=== PATIENT | male | born 1955 | race Hispanic/Latino ===

== ENCOUNTER 2020-12-05 16:55 | Inpatient (IN) | payer BC, SELFPAY ==
[~2020-12-05 16:55] MED LIST: Succinylcholine 200 MG/10 ml SYRINGE FS ONE
[2020-12-05] MEDS ORDERED: cefTRIAXone\\ROCEPHIN 1 GM VIAL ONE (17:21)
--- NOTE | 2020-12-05 17:28 | RAD ---
Exam: Chest one view HISTORY:Dyspnea Comparison: None FINDINGS: Cardiac silhouette: Normal Aorta: Unremarkable Pulmonary vessels: Normal Costophrenic angles: Clear LUNGS: The lobar interstitial and alveolar opacities. Pneumothorax: None Osseous abnormalities: None Additional findings: Calcified gallbladder is suspected in the right lower quadrant. IMPRESSION: 1. Multi lobar interstitial and alveolar opacities. Correlate for congestive heart failure versus COV ID pneumonia. 2. 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
[2020-12-05 17:34] LABS: Hemoglobin 15.9 g/dL (14.0-18.0); Mean Corpuscular HGB CONC 33.3 g/dL (32.0-36.0); Mean Corpuscular Hemoglobin 29.8 pg (27.0-31.0); Mean Corpuscular Volume 89.4 fL (78.0-98.0); Mean Platelet Volume 10.1 fL (7.4-10.4); Platelet Count 174 thou/uL (130-400); RBC Distribution Width 12.4 % (11.5-14.5); Red Blood Cell (RBC) Count 5.34 mill/uL (4.70-6.10); White Blood Cell (WBC) Count 28.9 thou/uL (4.8-10.8)
[2020-12-05 17:40] LABS: PTT 26.3 sec (22.9-36.1)
[2020-12-05 17:40] LABS: Bacteria/HPF 2+ HPF (None Seen); Bilirubin 1+ (Negative); Blood, Urine 2+ (Negative); Clarity Extra Turbid (Clear); Glucose, Urine (Dipstick) 30 mg/dL (Negative); Ketone, Urine Negative (Negative); Leukocyte Negative Leu/uL (Negative); Nitrite Negative (Negative); Protein, Urine (Dipstick) 200 mg/dL (Neg-Trace); RBC/HPF 0-3 HPF (0-3); Specific Gravity, Urine 1.024 (1.002-1.036); Squamous Epithelial 0-3 HPF (0-3)
[2020-12-05] MEDS ORDERED: Azithromycin 500 MG in Sodium Chloride 0.9% 250 ML 250 ML IVPB SCH (17:45)
[2020-12-05 17:52] LABS: ALT (SGPT) 66 U/L (8-55); AST (SGOT) 76 U/L (5-34); Albumin 3.2 g/dL (3.4-4.8); Alkaline Phosphatase 75 U/L (40-110); Anion Gap 30 mmol/L (10-20); BUN (Urea Nitrogen) 86 mg/dL (8.4-25.7); Calc. Creatinine Clearance 0 mL/min (70-130); Calcium 7.7 mg/dL (7.8-10.44); Carbon Dioxide 23 mmol/L (23-31); Chloride 107 mmol/L (98-107); Globulin 4.8 g/dL (2.4-3.5); Glucose 151 mg/dL (80-115); Potassium 4.7 mmol/L (3.5-5.1); Sodium 155 mmol/L (136-145)
[2020-12-05 17:59] LABS: Band 22 % (5-11); Lymphocytes 2 % (21-51); MDiff Complete? YES; Monocytes 1 % (0-10); Neutrophil 74 % (42-75); Nucleated RBC 1 % (0); Platelet Morphology Comment Appears Adequate; Polychromasia MODERATE = 3-4 cells (100X) (0-2/hpf); Reactive Lymphocytes 1 % (0-10)
[2020-12-05 18:03] LABS: D-Dimer Test Greater than 20.00 *mcg/mL (0.27-0.43)
[2020-12-05 18:20] LABS: CKMB 5.2 ng/mL (0-6.6)
[2020-12-05] MEDS ORDERED: Aspirin 300 MG Suppository ONE (19:21)
[2020-12-05] MEDS ORDERED: Enoxaparin Sodium 40 MG/0.4 ML SYRINGE ONE ×2 (19:21→19:32)
[2020-12-05] MEDS ORDERED: Dexamethasone 10 MG/ML VIAL ONE (19:21)
[2020-12-05 20:26] LABS: Troponin I 1.888 ng/mL (< 0.028)
[2020-12-05 20:30] LABS: Lactic Acid 2.2 mmol/L (0.5-2.2)
[2020-12-05] MEDS ORDERED: Acetaminophen 325 MG TAB PO PRN (21:30)
[2020-12-05] MEDS ORDERED: Vancomycin 1 GM in Premix Bag 1 BAG IVPB SCH (21:30)
[2020-12-05] MEDS ORDERED: Ondansetron ODT 4 MG TAB SL PRN (21:30)
[2020-12-05] MEDS ORDERED: Cefepime 2 GM in Sodium Chloride 0.9% 100 ML IVPB SCH (21:30)
[2020-12-05] MEDS ORDERED: Ondansetron PF 4 MG/2 ML Vial IVP PRN (21:30)
--- NOTE | 2020-12-05 23:39 | PDOC.HHP ---
Hospitalist HPI - History of Present Illness confusion , SOB History of Present Illness: 65 yr odl Hispnic male with no known PMHX -admitted for worsneing SOB , altered mental status with confusion by fmtatyana - repertedly down with Covid infection sicne last 13 days with progresisve symptoms - on arrival at ER , pt was markedly confused , unable to give hx , noted with with hypixia requiring start of BIpap after failed suppmental NC 02 -He was also hypotensive with sytolci BP int he 90s -CXR shows bibasilar infiltrate worrisome for covid pna svs CHf -Noted with elevated cr at 4.6 and tropnin at 1.8 -Patient is more awake now , doing better on Bipap , He denies any pain , admit to SOB , denies any past hx of renal disease Hospitalist ROS - Review of Systems ROS unobtainable: due to mental status - Medication Medications: Active Medications Generic Name Dose Route Start Last Admin Trade Name Freq PRN Reason Stop Dose Admin Vancomycin HCl 1 gm/ Device 200 mls @ 200 mls/hr 12/05/20 21:30 12/05/20 21:39 IVPB 12/05/20 23:59 200 mls NOW BEATRICE Administration Cefepime HCl 2 gm/ Sodium 100 mls @ 200 mls/hr 12/05/20 21:30 12/05/20 21:38 Chloride IVPB 12/05/20 23:59 100 mls NOW BEATRICE Administration Hospitalist History - Past Medical History Source: patient Cardiac: reports: no pertinent history - Exam General Appearance: ill appearing General - other findings: on Bipap , Moves head to communicate Eye: PERRL, anicteric sclera ENT: normocephalic atraumatic, dry oral mucosa Neck: supple, symmetric Heart: RRR, no murmur Respiratory: rales, wheezes Gastrointestinal: soft, non-tender, no palpable masses, no guarding Extremities: no cyanosis, 1+ LE edema Skin: normal turgor, no lesions Neurological: normal sensation to touch, no focal deficits Musculoskeletal: normal tone, normal strength Psychiatric: normal affect, oriented to person, oriented to place Hospitalist Results - Labs Result Diagrams: 12/05/20 17:17 12/05/20 17:17 Lab results: WBC 28.9 thou/uL (4.8-10.8) H 12/05/20 17:17 Hgb 15.9 g/dL (14.0-18.0) 12/05/20 17:17 Hct 47.7 % (42.0-52.0) 12/05/20 17:17 MCV 89.4 fL (78.0-98.0) 12/05/20 17:17 Plt Count 174 thou/uL (130-400) 12/05/20 17:17 Band Neuts % (Manual) 22 % (5-11) H 12/05/20 17:17 ESR Westergren 69 mm/hr (Less than 20) H 12/05/20 17:17 Sodium 155 mmol/L (136-145) H 12/05/20 17:17 Potassium 4.7 mmol/L (3.5-5.1) 12/05/20 17:17 Chloride 107 mmol/L (98-107) 12/05/20 17:17 Carbon Dioxide 23 mmol/L (23-31) 12/05/20 17:17 BUN 86 mg/dL (8.4-25.7) H 12/05/20 17:17 Creatinine 4.64 mg/dL (0.7-1.3) H 12/05/20 17:17 Glucose 151 mg/dL (80-115) H 12/05/20 17:17 Lactic Acid 2.2 mmol/L (0.5-2.2) 12/05/20 19:59 Calcium 7.7 mg/dL (7.8-10.44) L 12/05/20 17:17 Total Bilirubin 1.0 mg/dL (0.2-1.2) 12/05/20 17:17 AST 76 U/L (5-34) H 12/05/20 17:17 ALT 66 U/L (8-55) H 12/05/20 17:17 Alkaline Phosphatase 75 U/L (40-110) 12/05/20 17:17 CK-MB (CK-2) 5.2 ng/mL (0-6.6) 12/05/20 17:17 Troponin I 1.888 ng/mL (< 0.028) H* 12/05/20 19:41 Serum Total Protein 8.0 g/dL (5.8-8.1) 12/05/20 17:17 Albumin 3.2 g/dL (3.4-4.8) L 12/05/20 17:17 Urine Ketones Negative mg/dL (Negative) 12/05/20 17:30 Urine Blood 2+ (Negative) A 12/05/20 17:30 Urine Nitrite Negative (Negative) 12/05/20 17:30 Ur Leukocyte Esterase Negative Horacio/uL (Negative) 12/05/20 17:30 Urine RBC 0-3 HPF (0-3) 12/05/20 17:30 Urine WBC 7-10 HPF (0-3) A 12/05/20 17:30 Ur Squamous Epith Cells 0-3 HPF (0-3) 12/05/20 17:30 Urine Bacteria 2+ HPF (None Seen) A 12/05/20 17:30 - Radiology Interpretation Chest x-ray Status: image reviewed by me Additional Comment: b/l alveolar infiltrate -porcelain gall bladder noted Hospitalist H&P A/P - Problem (1) Pneumonia due to COVID-19 virus Code(s): U07.1 - COVID-19; J12.82 - Status: Acute (2) Sepsis Code(s): A41.9 - SEPSIS, UNSPECIFIED ORGANISM Status: Acute (3) Hypotension Status: Acute (4) Acute respiratory failure with hypoxia Code(s): J96.01 - ACUTE RESPIRATORY FAILURE WITH HYPOXIA Status: Acute (5) Demand myocardial infarction Code(s): I21.9 - ACUTE MYOCARDIAL INFARCTION, UNSPECIFIED Status: Acute - Plan Plan: # Covid Pna - start steroids and zinc - pulmonary eval - lovenox qc q12 - wean bipap as tolerated - since fluid overload clincially , may be due to nephrosarca , start low dose lasix to keep in slight volume deplted state # Acute resp failure with hypoxia - as above , wean bipap # SAVANNAH - marked elevated cr to 4.6 - may be due to covid ATN - obtain renal eval - renally dose all meds - follow urine output trend - do lasix to convert to non oliguric ATN # FL - may be demand mediated , follow with lovebnox -follow cardiology # DVT prop - as above # Hypotension - improving - r/o sepsis from covid - follow blood cx - start emprical levaquin - will obtain RUQ US for r/o cholecystitis # Advance directive - unable to obtain due to mild confusion but improving , follow later
[2020-12-06] MEDS ORDERED: Furosemide 40 MG/4 ML VIAL ONE (00:20)
[2020-12-06] MEDS: Furosemide 40 MG/4 ML VIAL SLOW IVP SCH ×2 (00:22→10:46)
[2020-12-06] MEDS: Dextrose 5% in Water 1,000 ML IV SCH ×2 (00:22→07:30)
--- NOTE | 2020-12-06 07:37 | ULT ---
Sonogram right upper quadrant HISTORY: Right upper quadrant pain. FINDINGS: At the gallbladder fossa, there is dense echogenicity and shadowing behind the non-thickene d gallbladder wall. No pericholecystic fluid evident. Common duct upper limits of normal at 0.7 cm. Liver has a normal appearance without focal mass or intrahepatic biliary dilatation. No free fluid. 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 No evidence of acute bili argelia obstruction.
[2020-12-06 08:32] LABS: ALT (SGPT) 58 U/L (8-55); AST (SGOT) 76 U/L (5-34); Albumin 2.7 g/dL (3.4-4.8); Alkaline Phosphatase 62 U/L (40-110); Anion Gap 22 mmol/L (10-20); BUN (Urea Nitrogen) 105 mg/dL (8.4-25.7); Bilirubin, Total 0.8 mg/dL (0.2-1.2); Calc. Creatinine Clearance 19 mL/min (70-130); Calcium 6.8 mg/dL (7.8-10.44); Carbon Dioxide 20 mmol/L (23-31); Chloride 113 mmol/L (98-107); Glucose 212 mg/dL (80-115); Magnesium 3.7 mg/dL (1.6-2.6); Potassium 4.5 mmol/L (3.5-5.1); Protein, Total 6.7 g/dL (5.8-8.1); Sodium 150 mmol/L (136-145)
[2020-12-06] MEDS ORDERED: FLU VACC QS2020-21(6MOS UP)/PF 60 MCG/0.5 ML SYRINGE IM ONE (09:00)
[2020-12-06] MEDS ORDERED: Sodium Chloride 0.9% 1,000 ML IV SCH (09:15)
[2020-12-06 09:25] LABS: Band 11 % (5-11); Hemoglobin 13.5 g/dL (14.0-18.0); Lymphocytes 2 % (21-51); MDiff Complete? YES; Mean Corpuscular Hemoglobin 28.1 pg (27.0-31.0); Mean Corpuscular Volume 90.6 fL (78.0-98.0); Mean Platelet Volume 10.4 fL (7.4-10.4); Metamyelocyte 2 % (0-0); Monocytes 1 % (0-10); Myelocyte 1 % (0-0); Neutrophil 83 % (42-75); Nucleated RBC 1 % (0); Platelet Count 161 thou/uL (130-400); Platelet Morphology Comment Appears Adequate; Polychromasia SLIGHT = 2-3 cells (100X) (0-2/hpf); RBC Distribution Width 12.6 % (11.5-14.5); Red Blood Cell (RBC) Count 4.79 mill/uL (4.70-6.10); White Blood Cell (WBC) Count 30.7 thou/uL (4.8-10.8)
[2020-12-06] MEDS: Dexamethasone 10 MG/ML VIAL SLOW IVP SCH ×2 (09:32→20:57)
--- NOTE | 2020-12-06 09:57 | CON ---
DATE OF CONSULTATION: 12/06/2020 HISTORY OF PRESENT ILLNESS: Mr. Ramos is a 65-year-old male who was brought by his family due to mental status change and confusion. Initial evaluation showed he had a COVID-19 pneumonia. We are now being consulted for his worsening renal dysfunction. Chest x-ray did show bibasilar diffuse infiltrates. However, the reading of the blood vessels suggests its within normal making CHF less likely. We are now following up this patient for acute kidney injury. I did review the urinalysis and is very concentrated. No evidence of pigmented granular casts to suggest ATN at the present time. REVIEW OF SYSTEMS: Not obtainable due to the patient's confusion. PAST MEDICAL HISTORY: No significant medical problems. PAST SURGICAL HISTORY: No significant surgeries. ALLERGIES: UNKNOWN. TRAUMA: None. IMMUNIZATION: Unknown. HOSPITALIZATIONS: Please see past medical history. FAMILY HISTORY: No family history of ESRD. PHYSICAL EXAMINATION: VITAL SIGNS: Blood pressure is 123/85, heart rate 105, respiratory rate 34, and O2 saturation 100%. GENERAL: The patient is confused, on non-rebreather, in [id number] respiratory distress. SKIN: Adequate turgor. HEENT: He has pinkish conjunctivae. Anicteric sclerae. No neck mass. No carotid bruits. No JVD. CHEST: No deformities. LUNGS: Bibasilar crackles. HEART: Tachycardic. No murmur. No gallops. No rubs. ABDOMEN: Globular, soft, nontender. EXTREMITIES: No edema. NEUROLOGIC: The patient is confused, not following commands. MEDICATIONS: Of December 06, 2020, Decadron 10 mg IV q.12, Levaquin 250 mg daily, zinc sulfate 220 mg tablet once a day. Status post azithromycin. LABORATORY DATA: December 06, 2020, white count 30.7, hemoglobin 13.5. Sodium 150, potassium 4.5, chloride 113, carbon dioxide 20, BUN 105, creatinine 4.46, glucose 212, calcium 6.8, magnesium 3.7, AST 76, ALT 58, troponin I 1.2, albumin 2.7. Urinalysis shows specific gravity 1.024, protein is 200, rbc 0 to 3, wbc 7 to 10, no pigmented granular casts. Chest x-ray of December 05, 2020 shows diffuse infiltrates, pulmonary vessels are within normal. ASSESSMENT AND PLAN: 1. Acute kidney injury, consider hemodynamically-mediated renal dysfunction. Please note, the urine sediment was showing a very concentrated urine-specific gravity was 1.024. In addition, no findings of pigmented granular casts to suggest acute tubular necrosis. My suggestion is empiric volume repletion. We will hold off diuretics. Normal saline at 125 mL/hour. I do not find any indication for any emergent hemodialysis with this patient. 2. COVID-19 pneumonia. Continue supportive care on empiric antibiotics, on steroids. Overall prognosis remains guarded with this patient. Agree with current management. Job ID: [id number]
--- NOTE | 2020-12-06 10:06 | CON ---
DATE OF CONSULTATION: HISTORY OF PRESENT ILLNESS: The patient is a 65-year-old gentleman, who was admitted with possible sepsis and was noted to have an elevated troponin level. The patient was unable to give any type of coherent history. The patient apparently was recently diagnosed with COVID. The patient currently became acutely more dyspneic. He was noted to be hypotensive. The patient was admitted for further evaluation. PAST MEDICAL HISTORY: Unknown. PAST SURGICAL HISTORY: Unknown. SOCIAL HISTORY: Unknown. PHYSICAL EXAMINATION: GENERAL: This is an ill-appearing gentleman, on BiPAP. VITAL SIGNS: With a blood pressure 123/85. NECK: Showed no jugular venous distention. LUNGS: Crackles bilateral. HEART: Regular rate and rhythm. Normal S1, S2. ABDOMEN: Distended. EXTREMITIES: Showed trace edema. LABORATORY DATA: Sodium 150, potassium 4.5, chloride 113, bicarb 20, BUN 105, and creatinine 4.4. Troponin was 1.2. His white blood cell count is 28.9, hemoglobin 15.9, hematocrit 47.7, and platelets are 174. EKG revealed sinus tachycardia, otherwise unremarkable. Chest x-ray severe bilateral infiltrate suggestive of COVID pneumonia. IMPRESSION: 1. COVID pneumonia. 2. Sepsis. 3. Renal failure. 4. Elevated troponin level. PLAN: This unfortunate gentleman appears to have severe COVID pneumonia. His troponin level is elevated. This is most likely due to either myocarditis or demand ischemia. From a cardiac standpoint, we will follow this patient with you through his hospitalization. His prognosis is very guarded. Job ID: [id number] MTDD
[2020-12-06] MEDS: Zinc Sulfate 220 MG CAP PO SCH (10:10)
[2020-12-06] MEDS: guaiFENesin ER 600 MG TAB PO SCH ×2 (10:10→19:38)
[2020-12-06] MEDS: Sodium Chloride 0.45% 1,000 ML IV SCH ×2 (10:15→17:38)
--- NOTE | 2020-12-06 12:27 | CON ---
DATE OF CONSULTATION: HISTORY OF PRESENT ILLNESS: He is a 65-year-old Urdu gentleman, who came to the ER, confused. He then had an x-ray, which shows diffuse pulmonary infiltrates. He has a known coronavirus infection in the past. He has worsening renal function. I went in the room to check he is answering questions in Urdu. Denies any pain. He is on BiPAP this morning, sats are 93% to 94%. PAST SURGICAL HISTORY: Unknown. PAST MEDICAL HISTORY: Unknown. CHRONIC MEDICATION: Unknown. REVIEW OF SYSTEMS: Otherwise, unremarkable. PHYSICAL EXAMINATION: VITAL SIGNS: Temperature 96, blood pressure 123/85, sats 97%, bilevel BiPAP. LABORATORY AND DIAGNOSTIC DATA: Sodium is 150, creatinine 4.46, BUN 105, troponin 1.29. Apparently, day 14 with gong positive status. X-ray shows diffuse pulmonary infiltrates. IMPRESSION AND PLAN: Gong positive pneumonia, respiratory failure. Empiric antibiotics. DVT prophylaxis, heparin. Supportive care, PT. Prognosis remains guarded. TIME SPENT: Consultation note, 70 minutes, 50% patient care. Job ID: [id number]
[2020-12-06 13:27] LABS: Critical Call Chem Troponin I RESULT DECREASING; Troponin I 1.231 ng/mL (< 0.028)
[2020-12-06] MEDS: cefTRIAXone\\ROCEPHIN 1 GM in Sodium Chloride 0.9% 100 ML IVPB SCH (17:49)
--- NOTE | 2020-12-06 18:10 | PDOC.HOSPP ---
- Subjective Encounter Date: 12/06/20 Encounter Time: 09:00 Subjective: Patient seen for follow-up regarding COVID-19 pneumonia. Patient confused, could not complete review of systems. - Objective Vital Signs & Weight: Vital Signs (12 hours) Temp Pulse 12/06/20 15:39 98.0 F 12/06/20 12:39 103 H 12/06/20 11:49 96.4 F L 12/06/20 07:14 96.9 F L Weight Admit Weight 175 lb Weight 175 lb Most Recent Monitor Data Heart Rate from ECG 102 NIBP 120/94 NIBP BP-Mean 102 Respiration from ECG 31 SpO2 99 I&O: 12/05/20 12/06/20 12/07/20 06:59 06:59 06:59 Intake Total 1504 Balance 1504 Result Diagrams: 12/06/20 07:44 12/06/20 07:44 Additional Labs: Accuchecks 12/06/20 12/06/20 12/06/20 15:14 12:03 05:42 POC Glucose 183 H 168 H 198 H 12/06/20 00:39 POC Glucose 175 H Labs and MAR reviewed by me EKG Reviewed by me: Yes (Telemetry shows normal sinus rhythm) Hospitalist ROS - Review of Systems ROS unobtainable: due to mental status - Medication Medications: Active Medications Generic Name Dose Route Start Last Admin Trade Name Freq PRN Reason Stop Dose Admin Dexamethasone 10 mg 12/06/20 09:00 12/06/20 09:32 Dexamethasone 10 Mg/Ml Vial SLOW IVP 10 mg Q12HR BEATRICE Administration Guaifenesin 1,200 mg 12/06/20 09:00 12/06/20 10:10 Guaifenesin Er 600 Mg Tab PO Not Given Q12HR BEATRICE Levofloxacin 250 mg/ Device 50 mls @ 100 mls/hr 12/05/20 23:59 12/06/20 00:21 IVPB 50 mls 2359 BEATRICE Administration Sodium Chloride 1,000 mls @ 125 mls/hr 12/06/20 10:15 12/06/20 17:38 1/2 Normal Saline IV 1,000 mls .Q8H BEATRICE Administration Ceftriaxone Sodium 1 gm/ 100 mls @ 200 mls/hr 12/06/20 17:00 12/06/20 17:49 Sodium Chloride IVPB 12/13/20 17:01 100 mls 1700 BEATRICE Administration Zinc Sulfate 220 mg 12/06/20 09:00 12/06/20 10:10 Zinc Sulfate 220 Mg Cap PO Not Given DAILY BEATRICE - Exam General Appearance: awake alert Eye: anicteric sclera ENT: moist mucosa Neck: supple Heart: RRR Respiratory: rales, rhonchi Gastrointestinal: soft, non-tender Skin: no rashes Psychiatric: lethargic Hosp A/P - Plan -Assessment (1) Pneumonia due to COVID-19 virus Code(s): U07.1 - COVID-19; J12.82 - Status: Acute (2) Sepsis Code(s): A41.9 - SEPSIS, UNSPECIFIED ORGANISM Status: Acute (3) Hypotension Status: Acute (4) Acute respiratory failure with hypoxia Code(s): J96.01 - ACUTE RESPIRATORY FAILURE WITH HYPOXIA Status: Acute (5) Demand myocardial infarction Code(s): I21.9 - ACUTE MYOCARDIAL INFARCTION, UNSPECIFIED Status: Acute - Plan Patient is currently on BiPAP, in IMCU. ContinueCeftriaxone and levofloxacin. Continue vancomycin. Continue dexamethasone and zinc. Monitor creatinine and lites. Patient likely has non-ST elevation myocardial infarction type II secondary to Covid pneumonia. Prognosis guarded. DVT prophylaxis with Lovenox. Cardiology, nephrology and PCCM services following.
[2020-12-06] MEDS: Mometasone 200 MCG/Formoterol 5 MCG 120 PUFF INHALER INH SCH (18:32)
[2020-12-06] MEDS: Heparin 5,000 UNITS/ML VIAL SC SCH (20:57)
[2020-12-07] MEDS: Sodium Chloride 0.45% 1,000 ML IV SCH ×3 (01:39→18:08)
[2020-12-07] MEDS: Mometasone 200 MCG/Formoterol 5 MCG 120 PUFF INHALER INH SCH ×2 (05:17→19:40)
--- NOTE | 2020-12-07 09:00 | RAD ---
Chest one view HISTORY: Dyspnea. Pneumonia. Follow-up. COMPARISON: 421. FINDINGS: Cardiac silhouette is magnified by projection. Pulmonary vasculature predominantly obscured by patchy ill-defined areas of partially groundglass infiltrate throughout each lung. Mediastinum is midline. Right hemidiaphragm remains slightly elevated. No evidence of pneumothorax. IMPRESSION : Widespread pneumonitis. Stable appearance.
[2020-12-07] MEDS: Dexamethasone 10 MG/ML VIAL SLOW IVP SCH ×2 (09:36→21:25)
[2020-12-07] MEDS: Heparin 5,000 UNITS/ML VIAL SC SCH ×2 (09:36→21:25)
[2020-12-07] MEDS: Famotidine/PF 20 mg/2ml Vial SLOW IVP SCH (09:36)
[2020-12-07] MEDS: guaiFENesin ER 600 MG TAB PO SCH ×2 (09:37→21:25)
[2020-12-07] MEDS: Zinc Sulfate 220 MG CAP PO SCH (09:37)
--- NOTE | 2020-12-07 09:51 | PRG ---
DATE OF SERVICE: 12/07/2020 HISTORY OF PRESENT ILLNESS: Mr. Ramos is a 65-year-old male, non-Bengali speaking, who was initially admitted for COVID-19 pneumonia. We are following him up for his acute kidney injury. Our feeling is that he may have had hemodynamically-mediated renal dysfunction. Empiric volume repletion is being given. His initial creatinine was noted to be 4.46 and we are still awaiting for the results. He was also mildly hypernatremic and for that reason, he is on half-normal saline/LR solution. The patient is more awake today. OBJECTIVE: VITAL SIGNS: Blood pressure 96/64, ranging to as high as 131/88; temperature 96.2; heart rate 84; respiratory rate 17; and O2 saturation is 95%. GENERAL: The patient is awake, confused. Non-Bengali speaking. HEENT: Pinkish conjunctivae. Anicteric sclerae. NECK: No neck mass. No carotid bruits. No JVD. CHEST: No deformities. LUNGS: Decreased breath sounds. HEART: Normal sinus rhythm. No murmurs. No gallops. No rubs. ABDOMEN: Globular, soft, and nontender. No masses. EXTREMITIES: No edema. No deformities. MEDICATIONS: Of December 07, 2020, was reviewed. LABORATORY DATA: Laboratories of December 07, 2020, glucose 131. Basic metabolic panel pending. CBC pending. On December 06, 2020, troponin I 1.31. BUN was 105, creatinine 4.46 with potassium 4.5. ASSESSMENT AND PLAN: 1. Acute kidney injury, consider hemodynamically-mediated renal dysfunction. We will continue current IV fluids. Currently, on half-normal saline at 125 mL/hour. No indication for any emergent hemodialysis. Awaiting repeat basic metabolic panel. 2. Mild hypernatremia. Continuing half-normal saline. Adjust as needed. 3. COVID-19 pneumonia. Continue supportive care. Recheck basic metabolic panel and CBC in a.m. Job ID: [id number]
[2020-12-07 11:43] LABS: Hemoglobin 13.4 g/dL (14.0-18.0); Mean Corpuscular HGB CONC 31.7 g/dL (32.0-36.0); Mean Corpuscular Hemoglobin 28.8 pg (27.0-31.0); Mean Corpuscular Volume 90.8 fL (78.0-98.0); Mean Platelet Volume 11.1 fL (7.4-10.4); Platelet Count 125 thou/uL (130-400); RBC Distribution Width 12.3 % (11.5-14.5); Red Blood Cell (RBC) Count 4.67 mill/uL (4.70-6.10); White Blood Cell (WBC) Count 27.8 thou/uL (4.8-10.8)
[2020-12-07 11:50] LABS: Anion Gap 19 mmol/L (10-20); BUN (Urea Nitrogen) 97 mg/dL (8.4-25.7); Calc. Creatinine Clearance 36 mL/min (70-130); Calcium 7.1 mg/dL (7.8-10.44); Carbon Dioxide 21 mmol/L (23-31); Chloride 115 mmol/L (98-107); Glucose 148 mg/dL (80-115); Potassium 4.6 mmol/L (3.5-5.1); Sodium 150 mmol/L (136-145)
[2020-12-07 12:07] LABS: Band 11 % (5-11); Lymphocytes 1 % (21-51); MDiff Complete? YES; Metamyelocyte 1 % (0-0); Monocytes 1 % (0-10); Neutrophil 86 % (42-75); Nucleated RBC 3 % (0); Platelet Morphology Comment Appears Decreased; Polychromasia SLIGHT = 2-3 cells (100X) (0-2/hpf)
[2020-12-07] MEDS: cefTRIAXone\\ROCEPHIN 1 GM in Sodium Chloride 0.9% 100 ML IVPB SCH (18:06)
--- NOTE | 2020-12-07 19:34 | PDOC.HOSPP ---
- Subjective Encounter Date: 12/07/20 Encounter Time: 11:30 Subjective: Patient seen for follow-up for COVID-19 pneumonia. Patient is awake but not answering questions, could not complete review of systems. - Objective Vital Signs & Weight: Vital Signs (12 hours) Temp Pulse Ox 12/07/20 16:00 96.7 F L 12/07/20 12:03 96 12/07/20 12:00 98 12/07/20 08:00 96.5 F L 96 Weight Admit Weight 175 lb Weight 175 lb Most Recent Monitor Data Heart Rate from ECG 103 NIBP 123/74 NIBP BP-Mean 90 Respiration from ECG 28 SpO2 100 I&O: 12/06/20 12/07/20 12/08/20 06:59 06:59 06:59 Intake Total 1504 2812 Balance 1504 2812 Result Diagrams: 12/07/20 11:24 12/07/20 11:24 Additional Labs: Accuchecks 12/07/20 12/07/20 12/06/20 16:45 05:38 19:48 POC Glucose 143 H 131 H 155 H I reviewed patient's labs and MAR EKG Reviewed by me: Yes (Normal sinus rhythm on telemetry) Hospitalist ROS - Review of Systems ROS unobtainable: due to mental status - Medication Medications: Active Medications Generic Name Dose Route Start Last Admin Trade Name Amilcar PRN Reason Stop Dose Admin Dexamethasone 10 mg 12/06/20 09:00 12/07/20 09:36 Dexamethasone 10 Mg/Ml Vial SLOW IVP 10 mg Q12HR BEATRICE Administration Famotidine 20 mg 12/07/20 09:00 12/07/20 09:36 Famotidine/Pf 20 Mg/2ml Vial SLOW IVP 20 mg DAILY BEATRICE Administration Guaifenesin 1,200 mg 12/06/20 09:00 12/07/20 09:37 Guaifenesin Er 600 Mg Tab PO 1,200 mg Q12HR BEATRICE Administration Heparin Sodium (Porcine) 5,000 units 12/06/20 21:00 12/07/20 09:36 Heparin 5,000 Units/Ml Vial SC 5,000 units BID BEATRICE Administration Levofloxacin 250 mg/ Device 50 mls @ 100 mls/hr 12/05/20 23:59 12/07/20 01:36 IVPB 50 mls 2359 BEATRICE Administration Sodium Chloride 1,000 mls @ 125 mls/hr 12/06/20 10:15 12/07/20 18:08 1/2 Normal Saline IV 1,000 mls .Q8H BEATRICE Administration Ceftriaxone Sodium 1 gm/ 100 mls @ 200 mls/hr 12/06/20 17:00 12/07/20 18:06 Sodium Chloride IVPB 12/13/20 17:01 100 mls 1700 BEATRICE Administration Mometasone Furoate/Formoterol Fumar 2 puff 12/06/20 18:30 12/07/20 05:17 Mometasone 200 Mcg/Formoterol 5 Mcg 120 Puff Inhaler INH Not Given BID-RT BEATRICE Zinc Sulfate 220 mg 12/06/20 09:00 12/07/20 09:37 Zinc Sulfate 220 Mg Cap PO 220 mg DAILY BEATRICE Administration - Exam General Appearance: awake alert ENT: normocephalic atraumatic Neck: supple Heart: RRR Respiratory: rales, rhonchi Gastrointestinal: soft Skin: no rashes Psychiatric: normal affect Hosp A/P - Plan -Assessment (1) Pneumonia due to COVID-19 virus Code(s): U07.1 - COVID-19; J12.82 - Status: Acute (2) Sepsis Code(s): A41.9 - SEPSIS, UNSPECIFIED ORGANISM Status: Acute (3) Hypotension Status: Acute (4) Acute respiratory failure with hypoxia Code(s): J96.01 - ACUTE RESPIRATORY FAILURE WITH HYPOXIA Status: Acute (5) Demand myocardial infarction Code(s): I21.9 - ACUTE MYOCARDIAL INFARCTION, UNSPECIFIED Status: Acute - Plan Continue dexamethasone and zinc. ContinueCeftriaxone and levofloxacin. Continue vancomycin. Creatinine slowly improving. Patient likely has non-ST elevation myocardial infarction type II secondary to Covid pneumonia.
[2020-12-08] MEDS: Sodium Chloride 0.45% 1,000 ML IV SCH ×4 (02:22→20:29)
[2020-12-08 04:42] LABS: Hemoglobin 12.6 g/dL (14.0-18.0); Mean Corpuscular HGB CONC 32.8 g/dL (32.0-36.0); Mean Corpuscular Hemoglobin 29.8 pg (27.0-31.0); Mean Corpuscular Volume 90.8 fL (78.0-98.0); Mean Platelet Volume 10.8 fL (7.4-10.4); Platelet Count 125 thou/uL (130-400); RBC Distribution Width 12.1 % (11.5-14.5); Red Blood Cell (RBC) Count 4.24 mill/uL (4.70-6.10); White Blood Cell (WBC) Count 20.5 thou/uL (4.8-10.8)
[2020-12-08 04:43] LABS: Band 11 % (5-11); Lymphocytes 1 % (21-51); MDiff Complete? YES; Monocytes 4 % (0-10); Neutrophil 84 % (42-75)
--- NOTE | 2020-12-08 06:11 | PRG ---
DATE OF SERVICE: 12/07/2020 SUBJECTIVE: Amador Ramos is a 65-year-old gentleman on BiPAP. He is doing somewhat better. We are going to try and get him on high-flow if possible. His sats are adequate. He is in no distress. OBJECTIVE: VITAL SIGNS: Temperature 97, blood pressure 96/64, pulse . CHEST: No wheezing, no crackles. CARDIAC: Normal S1, S2. No gallops. ABDOMEN: No masses. LABORATORY DATA: His lab shows white count 30,000, H and H 13 and 43. His chemistry profile shows his creatinine was 4, BUN 106. Sodium was 150. IMPRESSION: 1. Respiratory failure. 2. Azotemia. 3. Electrolyte imbalance. PLAN: We will try high-flow. Continue high-dose steroids. Continue aggressive hydration as outlined. Job ID: [id number]
[2020-12-08] MEDS: Dexamethasone 10 MG/ML VIAL SLOW IVP SCH (08:36)
[2020-12-08] MEDS: Famotidine/PF 20 mg/2ml Vial SLOW IVP SCH (08:37)
[2020-12-08] MEDS: Zinc Sulfate 220 MG CAP PO SCH (08:37)
[2020-12-08] MEDS: guaiFENesin ER 600 MG TAB PO SCH ×2 (08:37→20:41)
--- NOTE | 2020-12-08 08:40 | RAD ---
Chest one view HISTORY: Pneumonia. Follow-up. COMPARISON: 12/07/2020. FINDINGS: Cardiac silhouette is magnified and now partially obscured by increasingly dense patchy are as of ill-defined infiltrate throughout each lung. Hemidiaphragms now also partially obscured. Pulmonary vasculature upper limits of normal. Mediastinum is midline. No evidence of pneumothorax. IMPRESSION : Worsening radiographic appearance with increasing density of widespread infiltrates.
[2020-12-08 08:47] LABS: Chloride 112 mmol/L (98-107); Potassium 4.6 mmol/L (3.5-5.1); Sodium 147 mmol/L (136-145)
[2020-12-08 08:48] LABS: Calcium 7.2 mg/dL (7.8-10.44); Glucose 132 mg/dL (80-115)
[2020-12-08 08:50] LABS: Anion Gap 16 mmol/L (10-20); Carbon Dioxide 24 mmol/L (23-31)
[2020-12-08 08:52] LABS: Calc. Creatinine Clearance 52 mL/min (70-130)
[2020-12-08 08:53] LABS: BUN (Urea Nitrogen) 72 mg/dL (8.4-25.7)
[2020-12-08] MEDS ORDERED: Dexamethasone 4 mg/ml Vial SLOW IVP SCH (09:45)
[2020-12-08] MEDS: Mometasone 200 MCG/Formoterol 5 MCG 120 PUFF INHALER INH SCH ×2 (09:58→20:41)
--- NOTE | 2020-12-08 10:05 | PRG ---
DATE OF SERVICE: SUBJECTIVE: Amador Ramos 65-year-old gentleman, remains in the MICU, somewhat better. OBJECTIVE: VITAL SIGNS: Temperature 97, pulse 92. He is on high-flow 70%, flow rate of 45, sats are 99%, blood pressure . CHEST: No wheezing, no crackles. CARDIAC: Normal S1, S2. No gallops. ABDOMEN: Soft. Renal function is slowly improving. BUN and creatinine down 72 and 1.64 respectively. Good urine output. X-ray still shows bilateral haziness. IMPRESSION: Delgado-positive pneumonia, respiratory failure, renal failure. PLAN: Continue steroids, empiric antibiotics. May increase the dose of heparin tomorrow if his GFR improves. Job ID: [id number]
[2020-12-08] MEDS: Heparin 5,000 UNITS/ML VIAL SC SCH ×2 (12:37→20:41)
[2020-12-08] MEDS: cefTRIAXone\\ROCEPHIN 1 GM in Sodium Chloride 0.9% 100 ML IVPB SCH (16:30)
[2020-12-08] MEDS: ALPRAZolam 0.25 MG TAB PO PRN (16:31)
--- NOTE | 2020-12-08 17:36 | PDOC.HOSPP ---
- Subjective Encounter Date: 12/08/20 Encounter Time: 13:00 Subjective: Patient seen for follow-up regarding COVID-19 pneumonia. Nonverbal, could not complete review of systems. - Objective Vital Signs & Weight: Vital Signs (12 hours) Temp Pulse Ox 12/08/20 16:00 97.3 F L 12/08/20 12:00 97.6 F 12/08/20 09:59 97 12/08/20 08:00 97.3 F L 12/08/20 07:59 92 L Weight Admit Weight 175 lb Weight 175 lb Most Recent Monitor Data Heart Rate from ECG 66 NIBP 121/83 NIBP BP-Mean 95 Respiration from ECG 24 SpO2 91 I&O: 12/07/20 12/08/20 12/09/20 06:59 06:59 06:59 Intake Total 2812 3990 Output Total 600 Balance 2812 3390 Result Diagrams: 12/08/20 03:26 12/08/20 08:22 Additional Labs: Accuchecks 12/08/20 12/08/20 12/07/20 16:43 10:10 21:13 POC Glucose 138 H 163 H 162 H 12/07/20 15:40 POC Glucose 127 H Labs and MAR reviewed by me Hospitalist ROS - Review of Systems ROS unobtainable: due to mental status - Medication Medications: Active Medications Generic Name Dose Route Start Last Admin Trade Name Freq PRN Reason Stop Dose Admin Alprazolam 0.25 mg 12/08/20 11:55 12/08/20 16:31 Alprazolam 0.25 Mg Tab PO 0.25 mg BIDPRN PRN Administration Anxiety Famotidine 20 mg 12/07/20 09:00 12/08/20 08:37 Famotidine/Pf 20 Mg/2ml Vial SLOW IVP 20 mg DAILY BEATRICE Administration Guaifenesin 1,200 mg 12/06/20 09:00 12/08/20 08:37 Guaifenesin Er 600 Mg Tab PO 1,200 mg Q12HR BEATRICE Administration Heparin Sodium (Porcine) 5,000 units 12/06/20 21:00 12/08/20 12:37 Heparin 5,000 Units/Ml Vial SC Not Given BID BEATRICE Sodium Chloride 1,000 mls @ 125 mls/hr 12/06/20 10:15 12/08/20 10:15 1/2 Normal Saline IV 1,000 mls .Q8H BEATRICE Administration Ceftriaxone Sodium 1 gm/ 100 mls @ 200 mls/hr 12/06/20 17:00 12/08/20 16:30 Sodium Chloride IVPB 12/13/20 17:01 100 mls 1700 BEATRICE Administration Mometasone Furoate/Formoterol Fumar 2 puff 12/06/20 18:30 12/08/20 09:58 Mometasone 200 Mcg/Formoterol 5 Mcg 120 Puff Inhaler INH Not Given BID-RT BEATRICE Zinc Sulfate 220 mg 12/06/20 09:00 12/08/20 08:37 Zinc Sulfate 220 Mg Cap PO 220 mg DAILY BEATRICE Administration - Exam General Appearance: awake alert ENT: moist mucosa Neck: supple Heart: RRR Respiratory: rhonchi Gastrointestinal: soft Skin: no rashes Psychiatric: normal affect Hosp A/P - Plan -Assessment (1) Pneumonia due to COVID-19 virus Code(s): U07.1 - COVID-19; J12.82 - Status: Acute (2) Sepsis Code(s): A41.9 - SEPSIS, UNSPECIFIED ORGANISM Status: Acute (3) Hypotension Status: Acute (4) Acute respiratory failure with hypoxia Code(s): J96.01 - ACUTE RESPIRATORY FAILURE WITH HYPOXIA Status: Acute (5) Demand myocardial infarction Code(s): I21.9 - ACUTE MYOCARDIAL INFARCTION, UNSPECIFIED Status: Acute - Plan Patient is on dexamethasone and zinc. Patient is also on ceftriaxone and levofloxacin. Continue vancomycin. Creatinine slowly improving. Patient likely has non-ST elevation myocardial infarction type II secondary to Covid pneumonia.
[2020-12-08] MEDS: Dexamethasone 4 mg/ml Vial SLOW IVP SCH (20:40)
[2020-12-09] MEDS: Sodium Chloride 0.45% 1,000 ML IV SCH ×2 (04:31→16:33)
[2020-12-09 04:43] LABS: Anion Gap 15 mmol/L (10-20); BUN (Urea Nitrogen) 59 mg/dL (8.4-25.7); Calc. Creatinine Clearance 58 mL/min (70-130); Calcium 7.3 mg/dL (7.8-10.44); Carbon Dioxide 22 mmol/L (23-31); Chloride 113 mmol/L (98-107); Glucose 129 mg/dL (80-115); Potassium 5.1 mmol/L (3.5-5.1); Sodium 145 mmol/L (136-145)
[2020-12-09 04:53] LABS: Band 21 % (5-11); Hemoglobin 12.4 g/dL (14.0-18.0); Lymphocytes 1 % (21-51); MDiff Complete? YES; Mean Corpuscular HGB CONC 33.1 g/dL (32.0-36.0); Mean Corpuscular Hemoglobin 29.5 pg (27.0-31.0); Mean Platelet Volume 10.4 fL (7.4-10.4); Monocytes 2 % (0-10); Neutrophil 76 % (42-75); Platelet Count 148 thou/uL (130-400); Platelet Morphology Comment Appears Adequate; RBC Distribution Width 12.1 % (11.5-14.5); White Blood Cell (WBC) Count 18.6 thou/uL (4.8-10.8)
[2020-12-09] MEDS: Mometasone 200 MCG/Formoterol 5 MCG 120 PUFF INHALER INH SCH ×3 (06:40→23:00)
[2020-12-09] MEDS: Heparin 5,000 UNITS/ML VIAL SC SCH ×2 (09:42→21:34)
[2020-12-09] MEDS: Famotidine/PF 20 mg/2ml Vial SLOW IVP SCH (09:45)
[2020-12-09] MEDS: guaiFENesin ER 600 MG TAB PO SCH ×2 (09:45→21:35)
[2020-12-09] MEDS: Zinc Sulfate 220 MG CAP PO SCH (09:45)
[2020-12-09] MEDS: Dexamethasone 4 mg/ml Vial SLOW IVP SCH ×2 (09:45→21:33)
--- NOTE | 2020-12-09 09:46 | RAD ---
PORTABLE CHEST 1 VIEW: DATE: 12/09/2020. TIME: 5:36 AM. HISTORY: Pneumonia. FINDINGS: The heart size is stable. Multifocal patchy airspace opacities in the lung mobley are again seen nighat aterally. No pneumothoraces or large effusions are identified. IMPRESSION: Stable exam consistent with pneumonia. POS: KALA
--- NOTE | 2020-12-09 09:50 | PRG ---
DATE OF SERVICE: 12/09/2020 SUBJECTIVE: A 65-year-old gentleman, sitting on the side of the bed. OBJECTIVE: VITAL SIGNS: On a flow rate of 50, 70% FiO2, sats 90%, blood pressure 120/85, respiratory rate 18. GENERAL: He is awake, responsive. CHEST: No wheezing, no crackles. CARDIAC: Normal S1. ABDOMEN: No masses. LABORATORY DATA: Creatinine is 1.46, BUN 57. His sodium is much improved. ASSESSMENT: Respiratory failure, electrolyte imbalance, renal failure. PLAN: Continue high-dose steroids, empiric antibiotics. Once able to decrease his FiO2 to less than 50%, he can be transferred out of the MICU. We will follow. Job ID: [id number]
--- NOTE | 2020-12-09 14:26 | PDOC.HOSPP ---
- Subjective Encounter Date: 12/09/20 Encounter Time: 11:30 Subjective: Patient seen for follow-up regarding COVID-19 pneumonia. He denies chest pain or shortness of breath. - Objective Vital Signs & Weight: Vital Signs (12 hours) Temp 12/09/20 04:00 98.0 F Weight Admit Weight 175 lb Weight 175 lb Most Recent Monitor Data Heart Rate from ECG 78 NIBP 116/68 NIBP BP-Mean 84 Respiration from ECG 30 SpO2 99 I&O: 12/08/20 12/09/20 12/10/20 06:59 06:59 06:59 Intake Total 3990 4195 Output Total 600 1850 Balance 3390 2345 Result Diagrams: 12/09/20 03:40 12/09/20 03:40 Additional Labs: Accuchecks 12/09/20 12/09/20 12/08/20 10:24 05:59 16:43 POC Glucose 149 H 112 H 138 H I reviewed patient's labs and MAR EKG Reviewed by me: Yes (Normal sinus rhythm on telemetry) Hospitalist ROS - Review of Systems Respiratory: reports: cough, dry, SOB with excertion. denies: shortness of breath, hemoptysis, pleuritic pain, sputum, wheezing Cardiovascular: denies: chest pain, palpitations, orthopnea, paroxysmal noc. dyspnea, edema, light headedness - Medication Medications: Active Medications Generic Name Dose Route Start Last Admin Trade Name Freq PRN Reason Stop Dose Admin Alprazolam 0.25 mg 12/08/20 11:55 12/08/20 16:31 Alprazolam 0.25 Mg Tab PO 0.25 mg BIDPRN PRN Administration Anxiety Dexamethasone 6 mg 12/08/20 21:00 12/09/20 09:45 Dexamethasone 4 Mg/Ml Vial SLOW IVP 6 mg Q12HR BEATRICE Administration Famotidine 20 mg 12/07/20 09:00 12/09/20 09:45 Famotidine/Pf 20 Mg/2ml Vial SLOW IVP 20 mg DAILY BEATRICE Administration Guaifenesin 1,200 mg 12/06/20 09:00 12/09/20 09:45 Guaifenesin Er 600 Mg Tab PO 1,200 mg Q12HR BEATRICE Administration Heparin Sodium (Porcine) 5,000 units 12/06/20 21:00 12/09/20 09:42 Heparin 5,000 Units/Ml Vial SC 5,000 units BID BEATRICE Administration Sodium Chloride 1,000 mls @ 125 mls/hr 12/06/20 10:15 12/09/20 04:31 1/2 Normal Saline IV 1,000 mls .Q8H BEATRICE Administration Ceftriaxone Sodium 1 gm/ 100 mls @ 200 mls/hr 12/06/20 17:00 12/08/20 16:30 Sodium Chloride IVPB 12/13/20 17:01 100 mls 1700 BEATRICE Administration Levofloxacin 250 mg 12/09/20 06:00 12/09/20 04:32 Levofloxacin 250 Mg Tab PO 12/16/20 06:01 250 mg 0600 BEATRICE Administration Mometasone Furoate/Formoterol Fumar 2 puff 12/06/20 18:30 12/09/20 07:33 Mometasone 200 Mcg/Formoterol 5 Mcg 120 Puff Inhaler INH 2 puff BID-RT BEATRICE Administration Zinc Sulfate 220 mg 12/06/20 09:00 12/09/20 09:45 Zinc Sulfate 220 Mg Cap PO 220 mg DAILY BEATRICE Administration - Exam General Appearance: awake alert ENT: moist mucosa Neck: supple Heart: RRR Respiratory: rhonchi Gastrointestinal: soft Skin: no rashes Psychiatric: normal affect Hosp A/P - Plan -Assessment (1) Pneumonia due to COVID-19 virus Code(s): U07.1 - COVID-19; J12.82 - Status: Acute (2) Sepsis Code(s): A41.9 - SEPSIS, UNSPECIFIED ORGANISM Status: Acute (3) Hypotension Status: Acute (4) Acute respiratory failure with hypoxia Code(s): J96.01 - ACUTE RESPIRATORY FAILURE WITH HYPOXIA Status: Acute (5) Demand myocardial infarction Code(s): I21.9 - ACUTE MYOCARDIAL INFARCTION, UNSPECIFIED Status: Acute - Plan Continue dexamethasone and zinc. Continue ceftriaxone and levofloxacin. Creatinine slowly improving, 1.46 today. Patient likely has non-ST elevation myocardial infarction type II secondary to Covid pneumonia.
[2020-12-09] MEDS: cefTRIAXone\\ROCEPHIN 1 GM in Sodium Chloride 0.9% 100 ML IVPB SCH (16:31)
[2020-12-10] MEDS: ALPRAZolam 0.25 MG TAB PO PRN (00:33)
[2020-12-10] MEDS: Sodium Chloride 0.45% 1,000 ML IV SCH ×3 (02:58→16:24)
[2020-12-10 04:44] LABS: Anion Gap 14 mmol/L (10-20); BUN (Urea Nitrogen) 47 mg/dL (8.4-25.7); Calc. Creatinine Clearance 75 mL/min (70-130); Calcium 7.4 mg/dL (7.8-10.44); Carbon Dioxide 23 mmol/L (23-31); Chloride 112 mmol/L (98-107); Glucose 107 mg/dL (80-115); Potassium 4.8 mmol/L (3.5-5.1); Sodium 144 mmol/L (136-145)
[2020-12-10 05:03] LABS: Hemoglobin 12.2 g/dL (14.0-18.0); Mean Corpuscular Hemoglobin 30.2 pg (27.0-31.0); Mean Corpuscular Volume 88.9 fL (78.0-98.0); Mean Platelet Volume 9.5 fL (7.4-10.4); Platelet Count 142 thou/uL (130-400); RBC Distribution Width 11.9 % (11.5-14.5); Red Blood Cell (RBC) Count 4.04 mill/uL (4.70-6.10); White Blood Cell (WBC) Count 18.5 thou/uL (4.8-10.8)
[2020-12-10 05:04] LABS: Band 1 % (5-11); Hypochromia SLIGHT = 6-15 cells (100X) (0-5/hpf); Lymphocytes 4 % (21-51); MDiff Complete? YES; Monocytes 2 % (0-10); Neutrophil 93 % (42-75); Platelet Morphology Comment Appears Decreased
[2020-12-10] MEDS: Mometasone 200 MCG/Formoterol 5 MCG 120 PUFF INHALER INH SCH ×2 (06:45→19:13)
[2020-12-10] MEDS ORDERED: Lorazepam 2 MG/ML VIAL ONE (09:41)
[2020-12-10] MEDS ORDERED: Propofol 1,000 MG/100 ML VIAL IV ONE (10:06)
[2020-12-10] MEDS: Midazolam HCl 2 mg/2 ml Vial ONE ×2 (10:11→11:39)
[2020-12-10] MEDS ORDERED: Lorazepam 2 MG/ML VIAL SLOW IVP SCH (10:15)
[2020-12-10] MEDS: Dexamethasone 4 mg/ml Vial SLOW IVP SCH ×2 (11:02→20:13)
[2020-12-10] MEDS: Famotidine/PF 20 mg/2ml Vial SLOW IVP SCH (11:02)
[2020-12-10] MEDS: Heparin 5,000 UNITS/ML VIAL SC SCH ×2 (11:03→20:14)
[2020-12-10] MEDS: Famotidine 20 MG TAB PO SCH (11:03)
[2020-12-10] MEDS: guaiFENesin ER 600 MG TAB PO SCH ×2 (11:03→20:14)
[2020-12-10] MEDS: Zinc Sulfate 220 MG CAP PO SCH (11:03)
--- NOTE | 2020-12-10 11:21 | RAD ---
RADIOGRAPH CHEST 1 VIEW: DATE: 12/10/2020 TIME: 10:59 AM HISTORY: 65-year-old male with respiratory distress. Status post intubation. COMPARISON: 12/10/2020 4:39 AM FINDINGS: There is a new endotracheal tube with distal tip in the mid thoracic trachea. No interval change in multifocal moderately severe alveolar infiltrates. No cardiomegaly. Supine positioning makes this insensitive for pneumothorax detection.. IMPRESSION: 1. Status post intubation. 2. Somewhat severe bilateral infiltrates
--- NOTE | 2020-12-10 11:25 | RAD ---
1 VIEW CHEST: Date: 12/10/2020 COMPARISON: 12/09/2020. HISTORY: Pneumonia. FINDINGS: Stable cardiac silhouette. Multilobar interstitial and alveolar opacities due remain. No pneumothorax . IMPRESSION: Multilobar pneumonia. No significant interval change. POS: OFF
[2020-12-10] MEDS ORDERED: Propofol BOLUS 1,000 MG/100 ML VIAL IV PRN (11:45)
[2020-12-10] MEDS ORDERED: Morphine 2 MG/ML VIAL SLOW IVP PRN (11:45)
[2020-12-10] MEDS ORDERED: DISCONTINUE PREVIOUS NARCOTIC PAIN MEDICATIONS AND BENZODIAZEPINES FS SCH (11:45)
[2020-12-10] MEDS ORDERED: Fentanyl BOLUS 250 ML IVPB PRN (11:45)
[2020-12-10] MEDS: Lorazepam 2 MG/ML VIAL SLOW IVP PRN ×2 (11:51→21:01)
[2020-12-10] MEDS: fentaNYL Citrate/PF 2,000 MCG in Sodium Chloride 0.9% 60 ML IV SCH (12:27)
[2020-12-10 12:43] LABS: Actual Bicarbonate (HCO3a) 19.5 mEq/L (22-28); Base Excess (BEa) -3.7 mEq/L (-2.0 to +3.0); CO2 Tension 29.5 mmHg (35.0-45.0); Calcium, Ionized (arterial) 1.11 mmol/L (1.12-1.30); Carboxyhemoglobin (COHb) 0.5 gm% (0.0-3.0); Hemoglobin (Hb) 11.7 g/dL (14.0-18.0); O2 Tension (PaO2), arterial 69.4 mmHg (> 80.0); Potassium - ABG Lab 4.41 mmol/L (3.70-5.30); pH, Arterial 7.44 (7.35-7.45)
[2020-12-10 12:56] LABS: Puncture Site RRA
[2020-12-10 12:57] LABS: ALV-art Gradient 214.575 mmHg (0-20)
[2020-12-10] MEDS ORDERED: Sodium Chloride 0.9% 1,000 ML IV SCH (16:15)
[2020-12-10] MEDS ORDERED: Norepinephrine 8 MG in Dextrose 5% in Water 242 ML IVPB PRN (16:15)
[2020-12-10] MEDS: cefTRIAXone\\ROCEPHIN 1 GM in Sodium Chloride 0.9% 100 ML IVPB SCH (16:24)
[2020-12-10] MEDS: Propofol 1,000 MG/100 ML VIAL IV PRN (17:42)
--- NOTE | 2020-12-10 18:07 | PRG ---
DATE OF SERVICE: 12/10/2020 SUBJECTIVE: Mr. Ramos became very encephalopathic today, would not cooperate with assistance in the Critical Care Unit, so he was intubated. I appreciate Anesthesia's input. Heart rates in the 70s, blood pressures in the 80s, respiratory rates in the teens. He is being given a volume infusion to correct his blood pressure. Now, he has positive-pressure ventilation. OBJECTIVE: LUNGS: Remarkable for equal breath sounds. HEART: Regular rhythm. ABDOMEN: Soft. EXTREMITIES: Without edema. LABORATORY DATA: White count 18.5, hemoglobin 12.2, platelets 142. Sodium 144, potassium 4.8, chloride 112, bicarb 23, BUN 47, creatinine 1.13. PH 7.44, CO2 of 29, PO2 of 69. IMPRESSION: Respiratory failure associated with COVID pneumonia, clinically stable now that he is intubated. Continue critical care support. Critical care time 30 min. Job ID: [id number] MTDD
--- NOTE | 2020-12-10 18:24 | PDOC.HOSPP ---
- Subjective Encounter Date: 12/10/20 Encounter Time: 11:30 Subjective: Patient seen for follow-up regarding COVID-19 pneumonia. Is currently intubated, could not complete review of systems. - Objective Vital Signs & Weight: Vital Signs (12 hours) Temp Pulse Resp BP Pulse Ox 12/10/20 18:00 18 12/10/20 16:00 97.0 F L 18 12/10/20 14:57 79 12/10/20 14:00 17 12/10/20 12:00 99.3 F 18 98 12/10/20 10:45 114 H 12/10/20 10:21 133 H 47 H 135/93 H 90 L 12/10/20 10:00 145 H 30 H 87 L 12/10/20 09:00 126 H 17 154/103 H 12/10/20 08:00 97.0 F L 120 H 29 H 153/98 H 88 L 12/10/20 07:00 124 H 45 H 163/92 H Weight Admit Weight 175 lb Weight 175 lb Most Recent Monitor Data Heart Rate from ECG 89 NIBP 151/95 NIBP BP-Mean 113 Respiration from ECG 26 SpO2 98 I&O: 12/09/20 12/10/20 12/11/20 06:59 06:59 06:59 Intake Total 4195 2450 3307.5 Output Total 9916 795 9376 Balance 2345 1750 2162.5 Result Diagrams: 12/10/20 03:53 12/10/20 03:53 Additional Labs: Accuchecks 12/10/20 12/10/20 12/10/20 16:31 11:54 05:58 POC Glucose 135 H 114 H 98 12/09/20 20:32 POC Glucose 139 H Labs and MAR reviewed by ma Hospitalist ROS - Review of Systems ROS unobtainable: due to endotracheal tube - Medication Medications: Active Medications Generic Name Dose Route Start Last Admin Trade Name Freq PRN Reason Stop Dose Admin Dexamethasone 6 mg 12/08/20 21:00 12/10/20 11:02 Dexamethasone 4 Mg/Ml Vial SLOW IVP 6 mg Q12HR BEATRICE Administration Famotidine 20 mg 12/07/20 09:00 12/10/20 11:02 Famotidine/Pf 20 Mg/2ml Vial SLOW IVP 20 mg DAILY BEATRICE Administration Famotidine 20 mg 12/10/20 09:00 12/10/20 11:03 Famotidine 20 Mg Tab PO Not Given DAILY BEATRICE Guaifenesin 1,200 mg 12/06/20 09:00 12/10/20 11:03 Guaifenesin Er 600 Mg Tab PO 1,200 mg Q12HR BEATRICE Administration Heparin Sodium (Porcine) 5,000 units 12/06/20 21:00 12/10/20 11:03 Heparin 5,000 Units/Ml Vial SC 5,000 units BID BEATRICE Administration Sodium Chloride 1,000 mls @ 125 mls/hr 12/06/20 10:15 12/10/20 16:24 1/2 Normal Saline IV 1,000 mls .Q8H BEATRICE Administration Ceftriaxone Sodium 1 gm/ 100 mls @ 200 mls/hr 12/06/20 17:00 12/10/20 16:24 Sodium Chloride IVPB 12/13/20 17:01 100 mls 1700 BEATRICE Administration Fentanyl Citrate 2,000 mcg/ 100 mls @ 0 mls/hr 12/10/20 11:45 12/10/20 12:27 Sodium Chloride IV 01/09/21 11:45 100 mls INF BEATRICE Administration Protocol Per Protocol Norepinephrine Bitartrate 8 mg 250 mls @ 0 mls/hr 12/10/20 16:15 12/10/20 16:25 / Dextrose/Water IVPB 250 mls INF PRN Administration TO MAINTAIN SBP > 90 Protocol As Directed Levofloxacin 250 mg 12/09/20 06:00 12/10/20 05:28 Levofloxacin 250 Mg Tab PO 12/16/20 06:01 250 mg 0600 BEATRICE Administration Lorazepam 2 mg 12/10/20 11:45 12/10/20 11:51 Lorazepam 2 Mg/Ml Vial SLOW IVP 01/09/21 11:45 2 mg Q1H PRN Administration Breakthrough agitation Mometasone Furoate/Formoterol Fumar 2 puff 12/06/20 18:30 12/10/20 06:45 Mometasone 200 Mcg/Formoterol 5 Mcg 120 Puff Inhaler INH 2 puff BID-RT BEATRICE Administration Propofol 1,000 mg 12/10/20 11:45 12/10/20 17:42 Propofol 1,000 Mg/100 Ml Vial IV 01/09/21 11:45 1,000 mg INF PRN Administration TO ACHIEVE GOAL RASS Protocol Zinc Sulfate 220 mg 12/06/20 09:00 12/10/20 11:03 Zinc Sulfate 220 Mg Cap PO 220 mg DAILY BEATRICE Administration - Exam General - other findings: Intubated ENT: moist mucosa Neck: no thyromegaly Heart: RRR Respiratory: rhonchi Gastrointestinal: soft Skin: no rashes Psychiatric - other findings: Unable to assess Hosp A/P - Plan -Assessment (1) Pneumonia due to COVID-19 virus Code(s): U07.1 - COVID-19; J12.82 - Status: Acute (2) Sepsis Code(s): A41.9 - SEPSIS, UNSPECIFIED ORGANISM Status: Acute (3) Hypotension Status: Acute (4) Acute respiratory failure with hypoxia Code(s): J96.01 - ACUTE RESPIRATORY FAILURE WITH HYPOXIA Status: Acute (5) Demand myocardial infarction Code(s): I21.9 - ACUTE MYOCARDIAL INFARCTION, UNSPECIFIED Status: Acute - Plan Patient was intubated earlier today and is now being mechanically ventilated in the CCU. Continue dexamethasone and zinc. Patient is also on ceftriaxone and levofloxacin. Creatinine slowly improving Patient likely has non-ST elevation myocardial infarction type II secondary to Covid pneumonia.
[2020-12-11] MEDS: Sodium Chloride 0.45% 1,000 ML IV SCH ×4 (01:14→23:53)
[2020-12-11] MEDS: Propofol 1,000 MG/100 ML VIAL IV PRN ×3 (01:15→17:18)
[2020-12-11] MEDS: fentaNYL Citrate/PF 2,000 MCG in Sodium Chloride 0.9% 60 ML IV SCH ×2 (04:09→17:17)
[2020-12-11 05:22] LABS: Anion Gap 12 mmol/L (10-20); BUN (Urea Nitrogen) 41 mg/dL (8.4-25.7); Calc. Creatinine Clearance 90 mL/min (70-130); Carbon Dioxide 22 mmol/L (23-31); Chloride 113 mmol/L (98-107); Glucose 142 mg/dL (80-115); Sodium 142 mmol/L (136-145)
[2020-12-11 05:41] LABS: Hemoglobin 9.6 g/dL (14.0-18.0); Lymphocytes 2 % (21-51); MDiff Complete? YES; Mean Corpuscular HGB CONC 33.8 g/dL (32.0-36.0); Mean Corpuscular Hemoglobin 30.3 pg (27.0-31.0); Mean Corpuscular Volume 89.8 fL (78.0-98.0); Mean Platelet Volume 9.4 fL (7.4-10.4); Monocytes 3 % (0-10); Myelocyte 1 % (0-0); Neutrophil 94 % (42-75); Platelet Count 141 thou/uL (130-400); Platelet Morphology Comment Appears Adequate; RBC Distribution Width 12.3 % (11.5-14.5); RBC Morphology Normal; Red Blood Cell (RBC) Count 3.17 mill/uL (4.70-6.10); White Blood Cell (WBC) Count 22.1 thou/uL (4.8-10.8)
[2020-12-11] MEDS: Mometasone 200 MCG/Formoterol 5 MCG 120 PUFF INHALER INH SCH ×2 (07:30→19:54)
[2020-12-11] MEDS: guaiFENesin ER 600 MG TAB PO SCH ×2 (08:25→21:33)
[2020-12-11] MEDS: Zinc Sulfate 220 MG CAP PO SCH (08:26)
[2020-12-11] MEDS: Lorazepam 2 MG/ML VIAL SLOW IVP PRN ×3 (08:26→13:30)
[2020-12-11] MEDS: Dexamethasone 4 mg/ml Vial SLOW IVP SCH ×2 (08:26→21:32)
[2020-12-11] MEDS: Famotidine/PF 20 mg/2ml Vial SLOW IVP SCH (08:26)
[2020-12-11] MEDS: Heparin 5,000 UNITS/ML VIAL SC SCH ×2 (08:26→21:33)
[2020-12-11] MEDS: Famotidine 20 MG TAB PO SCH (09:32)
[2020-12-11] MEDS: cefTRIAXone\\ROCEPHIN 1 GM in Sodium Chloride 0.9% 100 ML IVPB SCH (17:17)
--- NOTE | 2020-12-11 18:04 | PRG ---
DATE OF SERVICE: 12/11/2020 SUBJECTIVE: Amador Ramos remains afebrile. OBJECTIVE: VITAL SIGNS: Heart rate is in the 50s, blood pressure 99/63, respiratory rate 16. LUNGS: Unchanged. HEART: Unchanged. ABDOMEN: Unchanged. LABORATORY DATA: White count 22.1, hemoglobin 9.6, and platelets 141. Sodium 142, potassium 5, chloride 113, bicarb 22, BUN 41, creatinine 0.94, and glucose 142. IMPRESSION: COVID pneumonia with respiratory failure, clinically stable, status post intubation. We will continue mechanical ventilation. Job ID: [id number]
--- NOTE | 2020-12-11 19:21 | PDOC.HOSPP ---
- Subjective Encounter Date: 12/11/20 Encounter Time: 16:00 Subjective: Pt seen for followup re: COVID pneumonia. Intubated, could not complete ROS. - Objective Vital Signs & Weight: Vital Signs (12 hours) Temp Pulse Resp Pulse Ox 12/11/20 18:00 16 12/11/20 16:08 97.3 F L 12/11/20 16:00 16 12/11/20 14:17 55 L 12/11/20 14:00 16 12/11/20 12:00 16 12/11/20 11:09 96.0 F L 12/11/20 10:50 54 L 12/11/20 10:00 16 12/11/20 08:00 18 98 12/11/20 07:41 96.7 F L 12/11/20 07:30 56 L Weight Admit Weight 175 lb Weight 175 lb Most Recent Monitor Data Heart Rate from ECG 55 NIBP 107/66 NIBP BP-Mean 79 Respiration from ECG 16 SpO2 99 I&O: 12/10/20 12/11/20 12/12/20 06:59 06:59 06:59 Intake Total 2450 5066.6 3027 Output Total 700 2170 1275 Balance 1750 2896.6 1752 Result Diagrams: 12/11/20 04:20 12/11/20 04:20 Additional Labs: Accuchecks 12/11/20 12/11/20 12/11/20 15:51 09:46 05:13 POC Glucose 131 H 112 H 127 H 12/10/20 20:16 POC Glucose 135 H Reviewed labs/MAR Hospitalist ROS - Review of Systems ROS unobtainable: due to endotracheal tube - Medication Medications: Active Medications Generic Name Dose Route Start Last Admin Trade Name Freq PRN Reason Stop Dose Admin Dexamethasone 6 mg 12/08/20 21:00 12/11/20 08:26 Dexamethasone 4 Mg/Ml Vial SLOW IVP 6 mg Q12HR BEATRICE Administration Famotidine 20 mg 12/07/20 09:00 12/11/20 08:26 Famotidine/Pf 20 Mg/2ml Vial SLOW IVP 20 mg DAILY BEATRICE Administration Famotidine 20 mg 12/10/20 09:00 12/11/20 09:32 Famotidine 20 Mg Tab PO Not Given DAILY BEATRICE Guaifenesin 1,200 mg 12/06/20 09:00 12/11/20 08:25 Guaifenesin Er 600 Mg Tab PO 1,200 mg Q12HR BEATRICE Administration Heparin Sodium (Porcine) 5,000 units 12/06/20 21:00 12/11/20 08:26 Heparin 5,000 Units/Ml Vial SC 5,000 units BID BEATRICE Administration Sodium Chloride 1,000 mls @ 125 mls/hr 12/06/20 10:15 12/11/20 17:18 1/2 Normal Saline IV 1,000 mls .Q8H BEATRICE Administration Ceftriaxone Sodium 1 gm/ 100 mls @ 200 mls/hr 12/06/20 17:00 12/11/20 17:17 Sodium Chloride IVPB 12/13/20 17:01 100 mls 1700 BEATRICE Administration Fentanyl Citrate 2,000 mcg/ 100 mls @ 0 mls/hr 12/10/20 11:45 12/11/20 17:17 Sodium Chloride IV 01/09/21 11:45 100 mls INF BEATRICE Administration Protocol Per Protocol Norepinephrine Bitartrate 8 mg 250 mls @ 0 mls/hr 12/10/20 16:15 12/10/20 16:25 / Dextrose/Water IVPB 250 mls INF PRN Administration TO MAINTAIN SBP > 90 Protocol As Directed Levofloxacin 250 mg 12/09/20 06:00 12/11/20 05:33 Levofloxacin 250 Mg Tab PO 12/16/20 06:01 250 mg 0600 BEATRICE Administration Lorazepam 2 mg 12/10/20 11:45 12/11/20 13:30 Lorazepam 2 Mg/Ml Vial SLOW IVP 01/09/21 11:45 2 mg Q1H PRN Administration Breakthrough agitation Mometasone Furoate/Formoterol Fumar 2 puff 12/06/20 18:30 12/11/20 07:30 Mometasone 200 Mcg/Formoterol 5 Mcg 120 Puff Inhaler INH 2 puff BID-RT BEATRICE Administration Propofol 1,000 mg 12/10/20 11:45 12/11/20 17:18 Propofol 1,000 Mg/100 Ml Vial IV 01/09/21 11:45 1,000 mg INF PRN Administration TO ACHIEVE GOAL RASS Protocol Sodium Chloride 10 ml 12/10/20 21:00 12/11/20 09:32 Flush - Normal Saline 10 Ml Syringe IVF Not Given Q12HR BEATRICE Zinc Sulfate 220 mg 12/06/20 09:00 12/11/20 08:26 Zinc Sulfate 220 Mg Cap PO 220 mg DAILY BEATRICE Administration - Exam General - other findings: Intubated ENT: normocephalic atraumatic Neck: no lymphadenopathy Heart: RRR Respiratory: rales, rhonchi Gastrointestinal: soft Skin: no rashes Psychiatric - other findings: Unable to assess Hosp A/P - Plan -Assessment (1) Pneumonia due to COVID-19 virus Code(s): U07.1 - COVID-19; J12.82 - Status: Acute (2) Sepsis Code(s): A41.9 - SEPSIS, UNSPECIFIED ORGANISM Status: Acute (3) Hypotension Status: Acute (4) Acute respiratory failure with hypoxia Code(s): J96.01 - ACUTE RESPIRATORY FAILURE WITH HYPOXIA Status: Acute (5) Demand myocardial infarction Code(s): I21.9 - ACUTE MYOCARDIAL INFARCTION, UNSPECIFIED Status: Acute (6) SAVANNAH Resolved, present on admission - Plan Pt intubated, ventilated in BiPAP mode. Continue dexamethasone and zinc. Continue ceftriaxone and levofloxacin. SAVANNAH resolved. Patient likely has non-ST elevation myocardial infarction type II secondary to Covid pneumonia.
[2020-12-12 04:33] LABS: Hemoglobin 9.2 g/dL (14.0-18.0); Mean Corpuscular Hemoglobin 30.3 pg (27.0-31.0); Mean Corpuscular Volume 89.3 fL (78.0-98.0); Mean Platelet Volume 9.6 fL (7.4-10.4); Platelet Count 163 thou/uL (130-400); RBC Distribution Width 12.4 % (11.5-14.5); Red Blood Cell (RBC) Count 3.03 mill/uL (4.70-6.10); White Blood Cell (WBC) Count 19.1 thou/uL (4.8-10.8)
[2020-12-12 04:34] LABS: Anion Gap 11 mmol/L (10-20); BUN (Urea Nitrogen) 33 mg/dL (8.4-25.7); Band 3 % (5-11); Calc. Creatinine Clearance 104 mL/min (70-130); Calcium 7.1 mg/dL (7.8-10.44); Carbon Dioxide 22 mmol/L (23-31); Chloride 109 mmol/L (98-107); Glucose 116 mg/dL (80-115); Hypochromia SLIGHT = 6-15 cells (100X) (0-5/hpf); Lymphocytes 5 % (21-51); MDiff Complete? YES; Monocytes 12 % (0-10); Neutrophil 80 % (42-75); Platelet Morphology Comment Appears Adequate; Potassium 5.1 mmol/L (3.5-5.1); Sodium 137 mmol/L (136-145)
[2020-12-12] MEDS: Propofol 1,000 MG/100 ML VIAL IV PRN (04:51)
[2020-12-12] MEDS: Mometasone 200 MCG/Formoterol 5 MCG 120 PUFF INHALER INH SCH ×2 (07:52→18:45)
[2020-12-12] MEDS: Famotidine 20 MG TAB PO SCH (08:07)
[2020-12-12] MEDS: Dexamethasone 4 mg/ml Vial SLOW IVP SCH ×2 (08:07→21:27)
[2020-12-12] MEDS: guaiFENesin ER 600 MG TAB PO SCH ×2 (08:08→21:28)
[2020-12-12] MEDS: Zinc Sulfate 220 MG CAP PO SCH (08:08)
[2020-12-12] MEDS: Famotidine/PF 20 mg/2ml Vial SLOW IVP SCH (08:08)
[2020-12-12] MEDS: Lorazepam 2 MG/ML VIAL SLOW IVP PRN (08:08)
[2020-12-12] MEDS: Heparin 5,000 UNITS/ML VIAL SC SCH (08:08)
[2020-12-12] MEDS: Sodium Chloride 0.45% 1,000 ML IV SCH ×2 (08:09→16:51)
[2020-12-12] MEDS ORDERED: risperiDONE 0.25 MG TAB PO SCH (10:00)
--- NOTE | 2020-12-12 10:00 | PRG ---
DATE OF SERVICE: SUBJECTIVE: A 65-year-old gentleman, who is intubated for metabolic encephalopathy. He is on 30% FiO2 on the vent, on bilevel. He was still not in sync with the vent. OBJECTIVE: VITAL SIGNS: Blood pressure 130/80, . CHEST: No wheezing. No crackles. CARDIAC: Normal S1. ABDOMEN: No masses. LABORATORY DATA: Unremarkable. White count 19,000. ASSESSMENT: Respiratory failure, gong positive pneumonia, renal failure. PLAN: We will start nutrition and PT. Since his renal function is improved, we are going to start him on Lovenox. Try and give him low-dose risperidone, so we can get his encephalopathy improved, so we can start weaning him. One-half hour of critical care time. Job ID: [id number]
[2020-12-12] MEDS: Norepinephrine 8 MG/0.9% NS 250 ML IVPB SCH (11:08)
--- NOTE | 2020-12-12 15:53 | PDOC.HOSPP ---
- Subjective Encounter Date: 12/12/20 Encounter Time: 13:00 Subjective: Patient seen for follow-up regarding pneumonia from COVID-19 infection. He is intubated, review of systems could not be completed secondary to intubated status. - Objective Vital Signs & Weight: Vital Signs (12 hours) Temp Pulse Resp Pulse Ox 12/12/20 14:32 86 12/12/20 14:00 16 12/12/20 13:00 97.2 F L 12/12/20 12:00 16 12/12/20 11:00 97.0 F L 12/12/20 10:59 58 L 12/12/20 10:00 16 12/12/20 08:00 18 94 L 12/12/20 07:53 78 12/12/20 07:00 97.1 F L 12/12/20 06:00 16 12/12/20 04:00 16 Weight Admit Weight 175 lb Weight 175 lb Most Recent Monitor Data Heart Rate from ECG 56 NIBP 103/63 NIBP BP-Mean 76 Respiration from ECG 16 SpO2 99 I&O: 12/11/20 12/12/20 12/13/20 06:59 06:59 06:59 Intake Total 5066.6 4734.2 100 Output Total 2170 2650 1405 Balance 2896.6 2084.2 -1305 Result Diagrams: 12/12/20 03:54 12/12/20 03:54 Additional Labs: Accuchecks 12/12/20 12/11/20 12/11/20 12:47 19:55 15:51 POC Glucose 116 H 105 H 131 H 12/09/20 16:46 POC Glucose 114 H Labs and MAR reviewed by nv Hospitalist ROS - Review of Systems ROS unobtainable: due to endotracheal tube - Medication Medications: Active Medications Generic Name Dose Route Start Last Admin Trade Name Freq PRN Reason Stop Dose Admin Dexamethasone 6 mg 12/08/20 21:00 12/12/20 08:07 Dexamethasone 4 Mg/Ml Vial SLOW IVP 6 mg Q12HR BEATRICE Administration Famotidine 20 mg 12/07/20 09:00 12/12/20 08:08 Famotidine/Pf 20 Mg/2ml Vial SLOW IVP 20 mg DAILY BEATRICE Administration Famotidine 20 mg 12/10/20 09:00 12/12/20 08:07 Famotidine 20 Mg Tab PO Not Given DAILY BEATRICE Guaifenesin 1,200 mg 12/06/20 09:00 12/12/20 08:08 Guaifenesin Er 600 Mg Tab PO 1,200 mg Q12HR BEATRICE Administration Sodium Chloride 1,000 mls @ 125 mls/hr 12/06/20 10:15 12/12/20 08:09 1/2 Normal Saline IV 1,000 mls .Q8H BEATRICE Administration Ceftriaxone Sodium 1 gm/ 100 mls @ 200 mls/hr 12/06/20 17:00 12/11/20 17:17 Sodium Chloride IVPB 12/13/20 17:01 100 mls 1700 BEATRICE Administration Fentanyl Citrate 2,000 mcg/ 100 mls @ 0 mls/hr 12/10/20 11:45 12/11/20 17:17 Sodium Chloride IV 01/09/21 11:45 100 mls INF BEATRICE Administration Protocol Per Protocol Norepinephrine Bitartrate 250 mls @ 0 mls/hr 12/12/20 11:00 12/12/20 11:08 Levophed IVPB 250 mls INF BEATRICE Administration Protocol Titrate Lorazepam 2 mg 12/10/20 11:45 12/12/20 08:08 Lorazepam 2 Mg/Ml Vial SLOW IVP 01/09/21 11:45 2 mg Q1H PRN Administration Breakthrough agitation Mometasone Furoate/Formoterol Fumar 2 puff 12/06/20 18:30 12/12/20 07:52 Mometasone 200 Mcg/Formoterol 5 Mcg 120 Puff Inhaler INH 2 puff BID-RT BEATRICE Administration Propofol 1,000 mg 12/10/20 11:45 12/12/20 04:51 Propofol 1,000 Mg/100 Ml Vial IV 01/09/21 11:45 1,000 mg INF PRN Administration TO ACHIEVE GOAL RASS Protocol Sodium Chloride 10 ml 12/10/20 21:00 12/12/20 08:08 Flush - Normal Saline 10 Ml Syringe IVF 10 ml Q12HR BEATRICE Administration Zinc Sulfate 220 mg 12/06/20 09:00 12/12/20 08:08 Zinc Sulfate 220 Mg Cap PO 220 mg DAILY BEATRICE Administration - Exam General - other findings: Intubated ENT: normocephalic atraumatic Neck: no thyromegaly Heart: RRR Respiratory: rhonchi Gastrointestinal: soft Skin: no rashes Psychiatric - other findings: Could not assess Hosp A/P - Plan -Assessment (1) Pneumonia due to COVID-19 virus Code(s): U07.1 - COVID-19; J12.82 - Status: Acute (2) Sepsis Code(s): A41.9 - SEPSIS, UNSPECIFIED ORGANISM Status: Acute (3) Hypotension Status: Acute (4) Acute respiratory failure with hypoxia Code(s): J96.01 - ACUTE RESPIRATORY FAILURE WITH HYPOXIA Status: Acute (5) Demand myocardial infarction Code(s): I21.9 - ACUTE MYOCARDIAL INFARCTION, UNSPECIFIED Status: Acute (6) SAVANNAH Resolved, present on admission - Plan Pt intubated, ventilated in BiPAP mode and critical care unit. Patient is on dexamethasone and zinc. Patient is on ceftriaxone and levofloxacin. SAVANNAH resolved. Patient likely has non-ST elevation myocardial infarction type II secondary to Covid pneumonia.
[2020-12-12] MEDS: cefTRIAXone\\ROCEPHIN 1 GM in Sodium Chloride 0.9% 100 ML IVPB SCH (16:51)
[2020-12-12] MEDS: fentaNYL Citrate/PF 2,000 MCG in Sodium Chloride 0.9% 60 ML IV SCH (20:14)
[2020-12-12] MEDS: risperiDONE 0.25 MG TAB PO SCH (21:28)
[2020-12-12] MEDS: Enoxaparin Sodium 40 MG/0.4 ML SYRINGE SC SCH (21:28)
[2020-12-13 05:18] LABS: Anion Gap 13 mmol/L (10-20); BUN (Urea Nitrogen) 29 mg/dL (8.4-25.7); Calc. Creatinine Clearance 104 mL/min (70-130); Calcium 7.6 mg/dL (7.8-10.44); Carbon Dioxide 21 mmol/L (23-31); Chloride 108 mmol/L (98-107); Glucose 132 mg/dL (80-115); Potassium 4.6 mmol/L (3.5-5.1); Sodium 137 mmol/L (136-145)
[2020-12-13] MEDS: Sodium Chloride 0.45% 1,000 ML IV SCH ×2 (05:18→09:14)
[2020-12-13 05:20] LABS: Band 7 % (5-11); Hemoglobin 10.4 g/dL (14.0-18.0); Hypochromia SLIGHT = 6-15 cells (100X) (0-5/hpf); Lymphocytes 8 % (21-51); MDiff Complete? YES; Mean Corpuscular HGB CONC 33.4 g/dL (32.0-36.0); Mean Corpuscular Volume 89.7 fL (78.0-98.0); Mean Platelet Volume 8.8 fL (7.4-10.4); Monocytes 5 % (0-10); Neutrophil 80 % (42-75); Platelet Count 232 thou/uL (130-400); Platelet Morphology Comment Appears Adequate; RBC Distribution Width 13.1 % (11.5-14.5); Red Blood Cell (RBC) Count 3.49 mill/uL (4.70-6.10); White Blood Cell (WBC) Count 21.3 thou/uL (4.8-10.8)
[2020-12-13] MEDS: Mometasone 200 MCG/Formoterol 5 MCG 120 PUFF INHALER INH SCH ×2 (07:44→18:49)
--- NOTE | 2020-12-13 07:53 | RAD ---
XR Chest 1 View Portable History: Ventilated patient Comparison: Radiograph 3 days prior Findings: Enteric tube tip just below the clavicular level above the june 3.5 cm. Slight improved l iain aeration. No pneumothorax. No significant effusion. No acute osseous abnormality. Enteric tube tip at the gastric fundus. Impression: Slight improved lung aeration.
[2020-12-13] MEDS: Enoxaparin Sodium 40 MG/0.4 ML SYRINGE SC SCH ×2 (08:05→21:17)
[2020-12-13] MEDS: risperiDONE 0.25 MG TAB PO SCH ×2 (08:05→21:17)
[2020-12-13] MEDS: Propofol 1,000 MG/100 ML VIAL IV PRN ×3 (08:05→22:01)
[2020-12-13] MEDS: Dexamethasone 4 mg/ml Vial SLOW IVP SCH (08:06)
[2020-12-13] MEDS: Zinc Sulfate 220 MG CAP PO SCH (08:06)
[2020-12-13] MEDS: guaiFENesin ER 600 MG TAB PO SCH ×2 (08:06→21:17)
[2020-12-13] MEDS: Famotidine 20 MG TAB PO SCH (08:10)
[2020-12-13] MEDS: Famotidine/PF 20 mg/2ml Vial SLOW IVP SCH (08:10)
[2020-12-13] MEDS: Lorazepam 2 MG/ML VIAL SLOW IVP PRN ×3 (08:57→22:13)
[2020-12-13] MEDS ORDERED: Fentanyl CADD 100 ML ONE (09:38)
--- NOTE | 2020-12-13 10:42 | PRG ---
DATE OF SERVICE: 12/13/2020 SUBJECTIVE: Amador Ramos remains in the ICU, intubated in the vent. This was bilevel. OBJECTIVE: VITAL SIGNS: Blood pressure 140/115, pulse 110, sats 96%, . CHEST: No wheezing. No crackles. CARDIAC: Normal S1, S2. ABDOMEN: No masses. His renal function has improved, back to his baseline, probably was severely prerenal. I would discontinue his IV fluids. White count 21,000. X-ray stable with some improvement in his bilateral pulmonary infiltrates. ASSESSMENT AND PLAN: Delgado positive pneumonia, respiratory failure, metabolic encephalopathy, renal failure. X-ray are much improved. I am going to start cutting back on his steroids, IV fluids, switch to his vent settings. One-half hour of critical care time. Job ID: [id number]
[2020-12-13] MEDS: cefTRIAXone\\ROCEPHIN 1 GM in Sodium Chloride 0.9% 100 ML IVPB SCH (16:07)
--- NOTE | 2020-12-13 18:49 | PDOC.HOSPP ---
- Subjective Encounter Date: 12/13/20 Encounter Time: 12:30 Subjective: Pt seen for COVID 19 PNA. Intubated. - Objective Vital Signs & Weight: Vital Signs (12 hours) Temp Pulse Resp BP Pulse Ox 12/13/20 18:40 63 104/67 12/13/20 18:00 18 12/13/20 16:00 97.2 F L 16 12/13/20 14:45 57 L 12/13/20 14:00 17 12/13/20 12:00 97.2 F L 18 12/13/20 10:50 92 12/13/20 10:00 20 12/13/20 08:00 28 H 98 12/13/20 07:45 57 L 12/13/20 07:00 97.0 F L Weight Admit Weight 175 lb Weight 188 lb 7.924 oz Most Recent Monitor Data Heart Rate from ECG 65 NIBP 104/67 NIBP BP-Mean 79 Respiration from ECG 16 SpO2 100 I&O: 12/12/20 12/13/20 12/14/20 06:59 06:59 06:59 Intake Total 4734.2 3758.5 1322 Output Total 2650 3585 1700 Balance 2084.2 173.5 -378 Result Diagrams: 12/14/20 03:25 12/13/20 04:30 Additional Labs: Accuchecks 12/13/20 12/12/20 01:12 21:39 POC Glucose 134 H 89 I reviewed patient's labs and MAR Hospitalist ROS - Review of Systems ROS unobtainable: due to endotracheal tube - Medication Medications: Active Medications Generic Name Dose Route Start Last Admin Trade Name Amilcar PRN Reason Stop Dose Admin Enoxaparin Sodium 40 mg 12/12/20 21:00 12/13/20 08:05 Enoxaparin Sodium 40 Mg/0.4 Ml Syringe SC 40 mg 0900,2100 BEATRICE Administration Famotidine 20 mg 12/07/20 09:00 12/13/20 08:10 Famotidine/Pf 20 Mg/2ml Vial SLOW IVP 20 mg DAILY BEATRICE Administration Famotidine 20 mg 12/10/20 09:00 12/13/20 08:10 Famotidine 20 Mg Tab PO Not Given DAILY BEATRICE Guaifenesin 1,200 mg 12/06/20 09:00 12/13/20 08:06 Guaifenesin Er 600 Mg Tab PO 1,200 mg Q12HR BEATRICE Administration Fentanyl Citrate 2,000 mcg/ 100 mls @ 0 mls/hr 12/10/20 11:45 12/12/20 20:14 Sodium Chloride IV 01/09/21 11:45 100 mls INF BEATRICE Administration Protocol Per Protocol Norepinephrine Bitartrate 250 mls @ 0 mls/hr 12/12/20 11:00 12/12/20 11:08 Levophed IVPB 250 mls INF BEATRICE Administration Protocol Titrate Lorazepam 2 mg 12/10/20 11:45 12/13/20 08:57 Lorazepam 2 Mg/Ml Vial SLOW IVP 01/09/21 11:45 2 mg Q1H PRN Administration Breakthrough agitation Mometasone Furoate/Formoterol Fumar 2 puff 12/06/20 18:30 12/13/20 07:44 Mometasone 200 Mcg/Formoterol 5 Mcg 120 Puff Inhaler INH 2 puff BID-RT BEATRICE Administration Propofol 1,000 mg 12/10/20 11:45 12/13/20 16:07 Propofol 1,000 Mg/100 Ml Vial IV 01/09/21 11:45 1,000 mg INF PRN Administration TO ACHIEVE GOAL RASS Protocol Risperidone 0.25 mg 12/12/20 21:00 12/13/20 08:05 Risperidone 0.25 Mg Tab PO 0.25 mg BID BEATRICE Administration Sodium Chloride 10 ml 12/10/20 21:00 12/13/20 09:14 Flush - Normal Saline 10 Ml Syringe IVF 10 ml Q12HR BEATRICE Administration Zinc Sulfate 220 mg 12/06/20 09:00 12/13/20 08:06 Zinc Sulfate 220 Mg Cap PO 220 mg DAILY BEATRICE Administration - Exam General - other findings: Intubated ENT: normocephalic atraumatic Heart: RRR Respiratory: CTAB Gastrointestinal: soft Skin: no rashes Psychiatric - other findings: Unable to assess Hosp A/P - Plan -Assessment (1) Pneumonia due to COVID-19 virus Code(s): U07.1 - COVID-19; J12.82 - Status: Acute (2) Sepsis Code(s): A41.9 - SEPSIS, UNSPECIFIED ORGANISM Status: Acute (3) Hypotension Status: Acute (4) Acute respiratory failure with hypoxia Code(s): J96.01 - ACUTE RESPIRATORY FAILURE WITH HYPOXIA Status: Acute (5) Demand myocardial infarction Code(s): I21.9 - ACUTE MYOCARDIAL INFARCTION, UNSPECIFIED Status: Acute (6) SAVANNAH Resolved, present on admission - Plan Pt intubated Continue dexamethasone and zinc. Continue ceftriaxone and levofloxacin. SAVANNAH resolved. Patient likely has non-ST elevation myocardial infarction type II secondary to Covid pneumonia.
[2020-12-14] MEDS ORDERED: Fentanyl CADD 100 ML ONE ×2 (00:14→14:57)
[2020-12-14] MEDS: Lorazepam 2 MG/ML VIAL SLOW IVP PRN ×2 (04:55→07:35)
[2020-12-14] MEDS: Propofol 1,000 MG/100 ML VIAL IV PRN ×3 (04:55→22:43)
[2020-12-14 06:17] LABS: Hemoglobin 9.5 g/dL (14.0-18.0); Mean Corpuscular Hemoglobin 29.1 pg (27.0-31.0); Mean Corpuscular Volume 91.2 fL (78.0-98.0); Platelet Count 259 thou/uL (130-400); RBC Distribution Width 13.5 % (11.5-14.5); Red Blood Cell (RBC) Count 3.26 mill/uL (4.70-6.10); White Blood Cell (WBC) Count 19.6 thou/uL (4.8-10.8)
[2020-12-14 06:38] LABS: Band 6 % (5-11); Hypochromia SLIGHT = 6-15 cells (100X) (0-5/hpf); Lymphocytes 31 % (21-51); MDiff Complete? YES; Monocytes 2 % (0-10); Neutrophil 61 % (42-75); Platelet Morphology Comment Appears Adequate
[2020-12-14] MEDS: Mometasone 200 MCG/Formoterol 5 MCG 120 PUFF INHALER INH SCH ×2 (07:33→19:53)
[2020-12-14] MEDS: Zinc Sulfate 220 MG CAP PO SCH (07:34)
[2020-12-14] MEDS: risperiDONE 0.25 MG TAB PO SCH ×2 (07:34→20:07)
[2020-12-14] MEDS: guaiFENesin ER 600 MG TAB PO SCH ×2 (07:35→20:06)
[2020-12-14] MEDS: Dexamethasone 4 mg/ml Vial SLOW IVP SCH (07:35)
[2020-12-14] MEDS: Enoxaparin Sodium 40 MG/0.4 ML SYRINGE SC SCH (07:36)
[2020-12-14] MEDS: Famotidine 20 MG TAB PO SCH (07:36)
--- NOTE | 2020-12-14 07:41 | RAD ---
XR Chest 1 View Portable History: Ventilated patient. Covid pneumonia Comparison: Radiograph prior day Findings: Endotracheal tube tip at the clavicular level. Enteric tube tip at the gastric fundus. Airs pace consolidation is similar. No pneumothorax or pneumomediastinum. Relative to the initial examination from December 05, 2020, findings are also unchanged. Impression: Unchanged examination of the chest without improved lung aeration. No pneumothorax or pne umomediastinum.
[2020-12-14] MEDS: Famotidine/PF 20 mg/2ml Vial SLOW IVP SCH (08:00)
--- NOTE | 2020-12-14 10:03 | PRG ---
DATE OF SERVICE: SUBJECTIVE: Amador Ramos this morning is less agitated. X-ray looks better. OBJECTIVE: VITAL SIGNS: Pulse , blood pressure was low 84/60. He has gained a little bit of volume. He is on 30%, PEEP of 5. Sats %. CHEST: No wheezing, no crackles. CARDIAC: Normal S1, S2. No gallop. ABDOMEN: No masses. LABORATORY DATA: White count 19,000. ASSESSMENT: Delgado positive pneumonia, renal failure, respiratory failure, encephalopathy. PLAN: PEEP is decreased to 5, rate decreased to 10. Try and hold sedation, slow wean. One-half hour of critical time. Job ID: [id number]
[2020-12-14 10:13] LABS: Anion Gap 14 mmol/L (10-20); BUN (Urea Nitrogen) 32 mg/dL (8.4-25.7); Calc. Creatinine Clearance 104 mL/min (70-130); Calcium 7.1 mg/dL (7.8-10.44); Carbon Dioxide 22 mmol/L (23-31); Chloride 111 mmol/L (98-107); Glucose 153 mg/dL (80-115); Potassium 4.6 mmol/L (3.5-5.1); Sodium 142 mmol/L (136-145)
[2020-12-14] MEDS: Norepinephrine 8 MG/0.9% NS 250 ML IVPB SCH (11:53)
[2020-12-14] MEDS ORDERED: Bisacodyl 10 MG SUPP PR SCH (12:30)
[2020-12-14 12:49] VITALS: BMI 29.5
--- NOTE | 2020-12-14 18:20 | PDOC.HOSPP ---
- Subjective Encounter Date: 12/14/20 Encounter Time: 14:00 Subjective: Patient seen for follow-up for COVID-19 pneumonia. He is intubated, could not complete review of systems. - Objective Vital Signs & Weight: Vital Signs (12 hours) Temp Pulse Resp Pulse Ox 12/14/20 18:00 20 12/14/20 16:00 98.7 F 22 H 12/14/20 15:52 94 12/14/20 14:00 21 H 12/14/20 12:00 19 12/14/20 10:14 104 H 12/14/20 10:00 17 12/14/20 09:00 99.0 F 12/14/20 08:00 22 H 94 L 12/14/20 07:37 108 H 12/14/20 07:00 99.1 F Weight Admit Weight 175 lb Weight 188 lb 7.924 oz Most Recent Monitor Data Heart Rate from ECG 72 NIBP 106/64 NIBP BP-Mean 78 Respiration from ECG 13 SpO2 96 I&O: 12/13/20 12/14/20 12/15/20 06:59 06:59 06:59 Intake Total 3758.5 2540.6 5740 Output Total 3585 2470 750 Balance 173.5 70.6 4990 Result Diagrams: 12/14/20 03:25 12/14/20 09:18 Additional Labs: Labs and MAR reviewed by [place] Hospitalist ROS - Review of Systems ROS unobtainable: due to endotracheal tube - Medication Medications: Active Medications Generic Name Dose Route Start Last Admin Trade Name Amilcar PRN Reason Stop Dose Admin Dexamethasone 6 mg 12/14/20 09:00 12/14/20 07:35 Dexamethasone 4 Mg/Ml Vial SLOW IVP 6 mg DAILY BEATRICE Administration Guaifenesin 1,200 mg 12/06/20 09:00 12/14/20 07:35 Guaifenesin Er 600 Mg Tab PO 1,200 mg Q12HR BEATRICE Administration Fentanyl Citrate 2,000 mcg/ 100 mls @ 0 mls/hr 12/10/20 11:45 12/12/20 20:14 Sodium Chloride IV 01/09/21 11:45 100 mls INF BEATRICE Administration Protocol Per Protocol Norepinephrine Bitartrate 250 mls @ 0 mls/hr 12/12/20 11:00 12/14/20 11:53 Levophed IVPB 250 mls INF BEATRICE Administration Protocol Titrate Lorazepam 2 mg 12/10/20 11:45 12/14/20 07:35 Lorazepam 2 Mg/Ml Vial SLOW IVP 01/09/21 11:45 2 mg Q1H PRN Administration Breakthrough agitation Mometasone Furoate/Formoterol Fumar 2 puff 12/06/20 18:30 12/14/20 07:33 Mometasone 200 Mcg/Formoterol 5 Mcg 120 Puff Inhaler INH 2 puff BID-RT BEATRICE Administration Propofol 1,000 mg 12/10/20 11:45 12/14/20 11:53 Propofol 1,000 Mg/100 Ml Vial IV 01/09/21 11:45 1,000 mg INF PRN Administration TO ACHIEVE GOAL RASS Protocol Risperidone 0.25 mg 12/12/20 21:00 12/14/20 07:34 Risperidone 0.25 Mg Tab PO 0.25 mg BID BEATRICE Administration Sodium Chloride 10 ml 12/10/20 21:00 12/14/20 10:14 Flush - Normal Saline 10 Ml Syringe IVF 10 ml Q12HR BEATRICE Administration Zinc Sulfate 220 mg 12/06/20 09:00 12/14/20 07:34 Zinc Sulfate 220 Mg Cap PO 220 mg DAILY BEATRICE Administration - Exam General - other findings: Intubated ENT: moist mucosa Neck: no thyromegaly Heart: RRR Respiratory: rhonchi Gastrointestinal: soft Skin: no rashes Psychiatric - other findings: Unable to assess Hosp A/P - Plan -Assessment (1) Pneumonia due to COVID-19 virus Code(s): U07.1 - COVID-19; J12.82 - Status: Acute (2) Sepsis Code(s): A41.9 - SEPSIS, UNSPECIFIED ORGANISM Status: Acute (3) Hypotension Status: Acute (4) Acute respiratory failure with hypoxia Code(s): J96.01 - ACUTE RESPIRATORY FAILURE WITH HYPOXIA Status: Acute (5) Demand myocardial infarction Code(s): I21.9 - ACUTE MYOCARDIAL INFARCTION, UNSPECIFIED Status: Acute (6) SAVANNAH Resolved, present on admission - Plan Pt intubated Patient is on dexamethasone and zinc. Continue ceftriaxone and levofloxacin. SAVANNAH resolved. Patient likely has non-ST elevation myocardial infarction type II secondary to Covid pneumonia. Patient needed increasing pressor support. Tube feeds on hold.
[2020-12-14] MEDS: Docusate Sodium 100 MG/10 ML UDCUP PER TUBE SCH (20:06)
[2020-12-14] MEDS: Pantoprazole 40 MG VIAL IVP SCH (20:06)
[2020-12-14 20:31] LABS: Hemoglobin 7.2 g/dL (14.0-18.0); Platelet Count 259 thou/uL (130-400)
[2020-12-15 00:09] LABS: INR-International Normal Ratio 1.1; PTT 31.8 sec (22.9-36.1); Prothrombin Time 14.1 sec (12.0-14.7)
[2020-12-15 00:17] LABS: D-Dimer Test 6.52 *mcg/mL (0.27-0.43)
[2020-12-15 00:21] LABS: Band 1 % (5-11); Hemoglobin 7.2 g/dL (14.0-18.0); Hypochromia SLIGHT = 6-15 cells (100X) (0-5/hpf); Lymphocytes 21 % (21-51); MDiff Complete? YES; Mean Corpuscular HGB CONC 33.4 g/dL (32.0-36.0); Mean Corpuscular Hemoglobin 30.8 pg (27.0-31.0); Mean Corpuscular Volume 92.3 fL (78.0-98.0); Mean Platelet Volume 8.1 fL (7.4-10.4); Monocytes 5 % (0-10); Neutrophil 73 % (42-75); Platelet Count 268 thou/uL (130-400); Platelet Morphology Comment Appears Adequate; RBC Distribution Width 14.2 % (11.5-14.5); Red Blood Cell (RBC) Count 2.34 mill/uL (4.70-6.10); White Blood Cell (WBC) Count 26.9 thou/uL (4.8-10.8)
[2020-12-15 00:27] LABS: ALT (SGPT) 78 U/L (8-55); AST (SGOT) 35 U/L (5-34); Albumin 2.9 g/dL (3.4-4.8); Alkaline Phosphatase 106 U/L (40-110); Anion Gap 12 mmol/L (10-20); BUN (Urea Nitrogen) 29 mg/dL (8.4-25.7); Bilirubin, Total 0.5 mg/dL (0.2-1.2); Calc. Creatinine Clearance 106 mL/min (70-130); Calcium 7.7 mg/dL (7.8-10.44); Carbon Dioxide 23 mmol/L (23-31); Chloride 113 mmol/L (98-107); Globulin 2.5 g/dL (2.4-3.5); Glucose 119 mg/dL (80-115); Phosphorus 3.6 mg/dL (2.3-4.7); Protein, Total 5.4 g/dL (5.8-8.1); Sodium 144 mmol/L (136-145)
[2020-12-15] MEDS: Lorazepam 2 MG/ML VIAL SLOW IVP PRN ×6 (00:58→17:50)
[2020-12-15 02:13] LABS: Actual Bicarbonate (HCO3a) 22.2 mEq/L (22-28); Base Excess (BEa) -1.6 mEq/L (-2.0 to +3.0); Carboxyhemoglobin (COHb) 0.9 gm% (0.0-3.0); Hemoglobin (Hb) 7.3 g/dL (14.0-18.0); Potassium - ABG Lab 4.22 mmol/L (3.70-5.30); pH, Arterial 7.45 (7.35-7.45)
[2020-12-15 02:17] LABS: O2 Tension (PaO2), arterial 48.2 mmHg (> 80.0); Puncture Site RRA
[2020-12-15] MEDS ORDERED: Fentanyl CADD 100 ML ONE ×2 (04:54→23:07)
[2020-12-15] MEDS: Norepinephrine 8 MG/0.9% NS 250 ML IVPB SCH (04:59)
[2020-12-15] MEDS: Propofol 1,000 MG/100 ML VIAL IV PRN ×3 (05:45→15:38)
[2020-12-15 05:52] LABS: Anion Gap 13 mmol/L (10-20); BUN (Urea Nitrogen) 33 mg/dL (8.4-25.7); Calc. Creatinine Clearance 98 mL/min (70-130); Calcium 7.7 mg/dL (7.8-10.44); Carbon Dioxide 23 mmol/L (23-31); Chloride 113 mmol/L (98-107); Glucose 124 mg/dL (80-115); Potassium 4.1 mmol/L (3.5-5.1); Sodium 145 mmol/L (136-145)
[2020-12-15 06:02] LABS: Band 7 % (5-11); Hemoglobin 7.7 g/dL (14.0-18.0); Hypochromia SLIGHT = 6-15 cells (100X) (0-5/hpf); Lymphocytes 15 % (21-51); MDiff Complete? YES; Mean Corpuscular HGB CONC 33.1 g/dL (32.0-36.0); Mean Corpuscular Hemoglobin 30.2 pg (27.0-31.0); Mean Corpuscular Volume 91.2 fL (78.0-98.0); Mean Platelet Volume 8.2 fL (7.4-10.4); Monocytes 6 % (0-10); Neutrophil 72 % (42-75); Nucleated RBC 1 % (0); Platelet Count 268 thou/uL (130-400); Platelet Morphology Comment Appears Adequate; RBC Distribution Width 13.9 % (11.5-14.5); Red Blood Cell (RBC) Count 2.54 mill/uL (4.70-6.10); White Blood Cell (WBC) Count 39.1 thou/uL (4.8-10.8)
[2020-12-15] MEDS: Dexamethasone 4 mg/ml Vial SLOW IVP SCH (07:59)
[2020-12-15] MEDS: Zinc Sulfate 220 MG CAP PO SCH (07:59)
[2020-12-15] MEDS: guaiFENesin ER 600 MG TAB PO SCH ×2 (07:59→20:54)
[2020-12-15] MEDS: Docusate Sodium 100 MG/10 ML UDCUP PER TUBE SCH ×2 (08:00→21:03)
[2020-12-15] MEDS: risperiDONE 0.25 MG TAB PO SCH ×2 (08:00→20:55)
[2020-12-15] MEDS: Pantoprazole 40 MG VIAL IVP SCH ×2 (08:00→20:55)
[2020-12-15] MEDS: Mometasone 200 MCG/Formoterol 5 MCG 120 PUFF INHALER INH SCH ×2 (08:07→18:44)
--- NOTE | 2020-12-15 08:31 | RAD ---
EXAM: CHEST ONE VIEW HISTORY: On ventilator. Follow-up evaluation. COMPARISON: 12/14/2020 FINDINGS: Endotracheal tube and nasogastric tube remain in place. Cardiac silhouette is within normal limits. I nterstitial and patchy parenchymal airspace opacities are again scattered within the lungs bilaterally overall similar in distribution when compared to prior exam. No other interval change. IMPRESSION: Stable bilateral interstitial and alveolar opacities worrisome for bilateral pneumonia and possibly a typical infectious process. Follow-up to resolution is recommended.
--- NOTE | 2020-12-15 09:50 | PRG ---
DATE OF SERVICE: 12/15/2020 SUBJECTIVE: 65-year-old gentleman is intubated in the ICU. OBJECTIVE: VITAL SIGNS: Temperature 99, pulse 107, his sats are now 100% on 40%. Apparently, he is having some kind of a GI bleed issue. Heart rate is 120s. CHEST: No wheezing. No crackles. CARDIAC: Sinus tach. ABDOMEN: Soft. LABORATORY DATA: Lab was done, which showed his white count 39,000, H and H 7 and 23, platelet count is normal, big left shift. His pO2 was 48, pCO2 40%, PEEP of 5. Lytes are normal. Chest x-ray looks stable. ASSESSMENT: Respiratory failure, gong positive pneumonia, metabolic encephalopathy. PLAN: He is clearly not weanable. We will continue the high-dose Decadron. Lovenox was withheld because of a GI bleed. Reglan, broad-spectrum antibiotics, supportive care. One-half hour of critical care time. Job ID: [id number]
[2020-12-15] MEDS ORDERED: risperiDONE 0.25 MG TAB PO SCH (10:30)
[2020-12-15] MEDS: MEROPENEM 1 GM/50 ML 1 GM in Sodium Chloride 0.9% 100 ML IVPB SCH (11:09)
--- NOTE | 2020-12-15 11:40 | OP ---
DATE OF PROCEDURE: 12/15/2020 PROCEDURE PERFORMED: Esophagogastroduodenoscopy with biopsy. PREPROCEDURE DIAGNOSIS: Gastrointestinal hemorrhage. POSTPROCEDURE DIAGNOSES: 1. Pyloric channel ulcer, 4 mm, white based, nonbleeding. 2. Incisura ulcer, 1 cm, white based, nonbleeding. 3. These were likely the source of bleeding or likely stress ulceration related to his grave illness. RECOMMENDATIONS: 1. IV Protonix q.12. 2. Await histopathology. 3. Blood product support as necessary to keep hemoglobin greater than 7. ANESTHESIA: The patient was already intubated isolation room for COVID pneumonia. He was given 2 mg of Ativan IV prior to the procedure in addition to the sedation protocol he is already on in the ICU, which is documented in the chart. DESCRIPTION OF PROCEDURE: The patient's was informed of the risks, benefits, and possible complications of endoscopy including perforation, reaction to medication, and aspiration, informed consent was obtained. The patient was brought to endoscopy suite, where he was sedated in gradual fashion. Once he was comfortable, the endoscope was advanced through the bite block and the esophagus was carefully intubated. The endoscope was advanced into the esophagus, stomach, into second and third portions of the duodenum, and slowly removed. The esophagus was normal. The GE junction was normal. The stomach was notable for coffee-ground material in the stomach. Once, this was all cleared away, retroflexed views revealed some gastritis with submucosal hemorrhage in the body of the stomach. There was no evidence of varices or lesions in the proximal stomach. There was chronic appearing atrophic gastritis throughout the stomach and biopsies were taken for H pylori. There was a white based ulcer, 1 cm in size in the incisura with no stigmata to indicate high risk of rebleeding. Therefore, no treatment was done. In the pyloric channel, there was a small ulcer with a small red spot, but no visible vessels. No treatment was done. This was about 4 mm in size. The duodenal bulb was entered and found to be normal. Duodenum to the third portion was normal. There was no fresh or active bleeding noted. The stomach was then surveyed again closely with full distention of the stomach, no other lesions were seen. The scope was removed. The patient tolerated the procedure well. There were no complications. Findings discussed with the patient's . Job ID: [id number]
[2020-12-15 11:58] LABS: Hemoglobin 7.4 g/dL (14.0-18.0)
[2020-12-15] MEDS: Metoclopramide HCl 10 MG/2 ML VIAL IVP SCH ×2 (12:10→21:03)
--- NOTE | 2020-12-15 12:37 | CON ---
DATE OF CONSULTATION: 12/15/2020 REASON FOR CONSULT: Melena and drop in hemoglobin. HISTORY OF PRESENT ILLNESS: Mr. Ramos is a 65-year-old gentleman, who came into the hospital and admitted on the for COVID infection and respiratory failure and was intubated. He was on Lovenox for thrombosis prophylaxis and H2 ernestine and Decadron. He came in with a hemoglobin of 15.9, between the and , he dropped from the 12 to the 9.6, and then yesterday, he dropped from 9.5 to 7.2 and had a black stool. He has had some coffee-ground like material in the NG tube. I have been asked to see him for an endoscopy for possible duodenal ulcer. Information comes from review of the chart and talking with the nurse at the bedside, as the patient is intubated. He has been on pressors for blood pressure support. Apparently yesterday, his x-rays looked better. He is on 30% PEEP on 40% FiO2. REVIEW OF SYSTEMS: Unable to obtain as he is intubated and sedated. PAST MEDICAL HISTORY: Nothing. PAST SURGICAL HISTORY: None that we know of. SOCIAL HISTORY: His extended family members have COVID infection as well. ALLERGIES: NONE KNOWN. MEDICATIONS: At home, none. MEDICATIONS: Here: 1. Tylenol p.r.n. 2. Dexamethasone 6 mg daily. 3. Fentanyl p.r.n. 4. Ativan p.r.n. 5. Meropenem. 6. Reglan 10 q.8, started today as he was having high residuals. 7. P.r.n. morphine. 8. P.r.n. nitroglycerin. 9. Levophed 12 mcg. 10. Protonix 40 IV b.i.d. started yesterday. Prior to that, he was on Pepcid. 11. He is on IV fluids at [facility]. 12. Other medicines include zinc. PHYSICAL EXAMINATION: VITAL SIGNS: Heart rate has been 120s earlier today, 107 now. Yesterday, he was in the 70s to 80s; blood pressure 89/59, 100 to 101/69, that is about where it has been for several days. Temperature is 98. Urine output yesterday 1994, the day before, 4770. In's and out's yesterday 7230, 2395. GENERAL: He is intubated. He is nonicteric. Resting comfortably on the ventilator. ABDOMEN: Soft, nontender. No scars. LUNGS: Clear. HEART: Regular. ABDOMEN: Soft, nontender. EXTREMITIES: Negative. LABORATORY DATA: White count 26,000 yesterday. 39,000 today, and 19,000 early yesterday; hemoglobin was 15 on admission, 7.2 yesterday, got 1 unit 7.7 today. INR 1.1. ABG, pH 7.45, PO2 48%. Chemistry: Sodium 145, potassium 4.1, BUN and creatinine are 33 and 0.93 today. Liver function tests normal yesterday with AST and ALT of 35 and 78. These were 76 and 66 on admission. Albumin is 2.9. On , INR was 1.1. D-dimer 6.25, down from greater than 20 on the . IMAGING: Chest x-ray on 12/15, stable bilateral interstitial and alveolar opacities. 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 ASSESSMENT: 1. COVID pneumonia with respiratory failure. 2. GI bleed with hemoglobin of 7.2 yesterday, 15 on admission, 7.7 after 1 unit of transfusion. 3. Mildly elevated LFTs, possibly related to COVID, possibility of biliary disease, possibly pre-existing. No prior labs at this facility to compare to. 4. Possible large gallstone versus sludge in the gallbladder. RECOMMENDATIONS: 1. Agree with changing from H2 ernestine to a PPI q.12. 2. Monitor H and H, transfuse to keep hemoglobin greater than 7. 3. Urgent endoscopy today in the ICU. Placed a call to the patient's daughter and left a voicemail for her. 4. Check hepatitis A,B, and C panel. Job ID: [id number]
[2020-12-15 18:28] LABS: Hemoglobin 6.9 g/dL (14.0-18.0); Platelet Count 259 thou/uL (130-400)
--- NOTE | 2020-12-15 18:41 | PDOC.HOSPP ---
- Subjective Encounter Date: 12/15/20 Encounter Time: 12:00 Subjective: Patient seen for follow-up for COVID-19 pneumonia. Intubated, could not complete review of systems. - Objective Vital Signs & Weight: Vital Signs (12 hours) Pulse Resp Pulse Ox 12/15/20 11:27 92 12/15/20 08:09 108 H 12/15/20 07:45 16 100 Weight Admit Weight 175 lb Weight 188 lb 7.924 oz Most Recent Monitor Data Heart Rate from ECG 88 NIBP 93/59 NIBP BP-Mean 70 Respiration from ECG 18 SpO2 98 I&O: 12/14/20 12/15/20 12/16/20 06:59 06:59 06:59 Intake Total 2540.6 7230.7 786 Output Total 2470 2395 550 Balance 70.6 4835.7 236 Result Diagrams: 12/15/20 18:21 12/15/20 05:10 Additional Labs: Accuchecks 12/14/20 22:16 POC Glucose 106 H I reviewed patient's labs and MAR EKG Reviewed by me: Yes (Normal sinus rhythm on telemetry) Hospitalist ROS - Review of Systems ROS unobtainable: due to endotracheal tube - Medication Medications: Active Medications Generic Name Dose Route Start Last Admin Trade Name Freq PRN Reason Stop Dose Admin Dexamethasone 6 mg 12/14/20 09:00 12/15/20 07:59 Dexamethasone 4 Mg/Ml Vial SLOW IVP 6 mg DAILY BEATRICE Administration Docusate Sodium 100 mg 12/14/20 21:00 12/15/20 08:00 Docusate Sodium 100 Mg/10 Ml Udcup PER TUBE 100 mg BID BEATRICE Administration Guaifenesin 1,200 mg 12/06/20 09:00 12/15/20 07:59 Guaifenesin Er 600 Mg Tab PO 1,200 mg Q12HR BEATRICE Administration Norepinephrine Bitartrate 250 mls @ 0 mls/hr 12/12/20 11:00 12/15/20 04:59 Levophed IVPB 250 mls INF BEATRICE Administration Protocol Titrate Meropenem 1 gm/ Sodium 150 mls @ 300 mls/hr 12/15/20 11:00 12/15/20 11:09 Chloride IVPB 150 mls 0300,1100,1900 BEATRICE Administration Lorazepam 2 mg 12/10/20 11:45 12/15/20 17:50 Lorazepam 2 Mg/Ml Vial SLOW IVP 01/09/21 11:45 2 mg Q1H PRN Administration Breakthrough agitation Metoclopramide HCl 10 mg 12/15/20 14:00 12/15/20 12:10 Metoclopramide Hcl 10 Mg/2 Ml Vial IVP 10 mg Q8HR BEATRICE Administration Mometasone Furoate/Formoterol Fumar 2 puff 12/06/20 18:30 12/15/20 08:07 Mometasone 200 Mcg/Formoterol 5 Mcg 120 Puff Inhaler INH 2 puff BID-RT BEATRICE Administration Pantoprazole Sodium 40 mg 12/14/20 21:00 12/15/20 08:00 Pantoprazole 40 Mg Vial IVP 40 mg BID BEATRICE Administration Propofol 1,000 mg 12/10/20 11:45 12/15/20 15:38 Propofol 1,000 Mg/100 Ml Vial IV 01/09/21 11:45 1,000 mg INF PRN Administration TO ACHIEVE GOAL RASS Protocol Sodium Chloride 10 ml 12/10/20 21:00 12/15/20 08:06 Flush - Normal Saline 10 Ml Syringe IVF 10 ml Q12HR BEATRICE Administration Zinc Sulfate 220 mg 12/06/20 09:00 12/15/20 07:59 Zinc Sulfate 220 Mg Cap PO 220 mg DAILY BEATRICE Administration - Exam General - other findings: Endotracheal tube Heart: RRR Respiratory: rhonchi Gastrointestinal: soft Skin: no rashes Psychiatric - other findings: Unable to assess Hosp A/P - Plan -Assessment (1) Pneumonia due to COVID-19 virus Code(s): U07.1 - COVID-19; J12.82 - Status: Acute (2) Sepsis Code(s): A41.9 - SEPSIS, UNSPECIFIED ORGANISM Status: Acute (3) Hypotension Status: Acute (4) Acute respiratory failure with hypoxia Code(s): J96.01 - ACUTE RESPIRATORY FAILURE WITH HYPOXIA Status: Acute (5) Demand myocardial infarction Code(s): I21.9 - ACUTE MYOCARDIAL INFARCTION, UNSPECIFIED Status: Acute (6) SAVANNAH Resolved, present on admission - Plan Continue dexamethasone and zinc. Continue meropenem SAVANNAH resolved. Patient likely has non-ST elevation myocardial infarction type II secondary to Covid pneumonia. Tube feeds on hold secondary to high residuals and increasing requirement.. H2 ernestine has been changed to PPI. Status post EGD. Patient has gastric ulcers.
[2020-12-15] MEDS: MEROPENEM 1 GM/50 ML 1 GM in Premix Bag 1 BAG IVPB SCH (21:04)
[2020-12-16] MEDS: MEROPENEM 1 GM/50 ML 1 GM in Sodium Chloride 0.9% 100 ML IVPB SCH (00:41)
[2020-12-16 03:48] LABS: Anion Gap 14 mmol/L (10-20); BUN (Urea Nitrogen) 31 mg/dL (8.4-25.7); Calc. Creatinine Clearance 113 mL/min (70-130); Calcium 7.6 mg/dL (7.8-10.44); Carbon Dioxide 25 mmol/L (23-31); Chloride 115 mmol/L (98-107); Glucose 107 mg/dL (80-115); Potassium 4.1 mmol/L (3.5-5.1); Sodium 150 mmol/L (136-145)
[2020-12-16 04:10] LABS: HBCM Index 0.04 S/CO (0-0.79); HBSAg Index 0.26 S/CO (0-0.99); Hep A IgM AB Non-Reactive (NonReactive); Hep A IgM S/CO 0.38 S/CO (0-0.79); Hep B Surf Ag Non-Reactive S/CO (NonReactive); Hep C IgG Ab Non-Reactive (NonReactive); Hep C Index 0.08 S/CO (0-0.79); Hepatitis B Core IgM Abs Non-Reactive (NonReactive)
[2020-12-16 04:11] LABS: Band 10 % (5-11); Eosinophils 1 % (0-10); Hemoglobin 8.5 g/dL (14.0-18.0); Lymphocytes 9 % (21-51); MDiff Complete? YES; Mean Corpuscular HGB CONC 32.7 g/dL (32.0-36.0); Mean Corpuscular Hemoglobin 30.1 pg (27.0-31.0); Mean Platelet Volume 8.2 fL (7.4-10.4); Metamyelocyte 2 % (0-0); Monocytes 2 % (0-10); Myelocyte 4 % (0-0); Neutrophil 72 % (42-75); Nucleated RBC 1 % (0); Platelet Count 235 thou/uL (130-400); RBC Distribution Width 14.5 % (11.5-14.5); Red Blood Cell (RBC) Count 2.82 mill/uL (4.70-6.10); White Blood Cell (WBC) Count 30.8 thou/uL (4.8-10.8)
[2020-12-16] MEDS: Metoclopramide HCl 10 MG/2 ML VIAL IVP SCH ×3 (04:57→13:46)
[2020-12-16] MEDS: MEROPENEM 1 GM/50 ML 1 GM in Premix Bag 1 BAG IVPB SCH ×3 (05:18→21:51)
[2020-12-16] MEDS: Docusate Sodium 100 MG/10 ML UDCUP PER TUBE SCH ×2 (07:23→20:32)
[2020-12-16] MEDS: guaiFENesin ER 600 MG TAB PO SCH ×2 (07:23→20:29)
[2020-12-16] MEDS: Dexamethasone 4 mg/ml Vial SLOW IVP SCH (07:28)
[2020-12-16] MEDS: Pantoprazole 40 MG VIAL IVP SCH ×2 (07:28→20:30)
[2020-12-16] MEDS: Zinc Sulfate 220 MG CAP PO SCH (07:28)
[2020-12-16] MEDS: risperiDONE 0.25 MG TAB PO SCH ×2 (07:29→20:30)
[2020-12-16] MEDS: Mometasone 200 MCG/Formoterol 5 MCG 120 PUFF INHALER INH SCH ×2 (07:55→19:28)
[2020-12-16] MEDS: Lorazepam 2 MG/ML VIAL SLOW IVP PRN ×2 (09:05→12:24)
--- NOTE | 2020-12-16 10:01 | PRG ---
DATE OF SERVICE: 12/16/2020 SUBJECTIVE: Amador Ramos is a 65-year-old gentleman, intubated on the vent. He is still having significant GI bleed, underwent endoscopy yesterday. OBJECTIVE: VITAL SIGNS: His temperature is 98, pulse 80, blood pressure 130/64, saturations are 100%. I's and O's have been consistently positive. CHEST: No wheezing, no crackles. CARDIAC: Normal S1. ABDOMEN: No masses. LABORATORY DATA: H and H are 8 and 26. White count 30,000, left shift. Sodium is 150. BUN is 31. IMPRESSION: Respiratory failure, gong positive pneumonia, gastrointestinal bleed. PLAN: At this stage not weanable. All his anticoagulants withheld. He is still on Decadron, broad-spectrum antibiotics. Medicine for anxiety, agitation. One-half hour of critical care time. Job ID: [id number]
[2020-12-16] MEDS: Sodium Chloride 0.45% 1,000 ML IV SCH (10:30)
--- NOTE | 2020-12-16 11:26 | PRG ---
DATE OF SERVICE: 12/16/2020 SUBJECTIVE: Mr. Ramos remains ventilated. His Levophed dose has been decreased from 12 to 3. He did have some stool, maroon to dark yesterday and last night. His hemoglobin had been 7.7 yesterday morning, dropped to 6.9 at 1800. Received 2 units of blood, and he is 8.5 today. He has had a dark stool today. MEDICATIONS: Continues: 1. Dexamethasone. 2. Sedation protocol. 3. Meropenem. 4. Reglan. 5. Levophed. 6. Protonix 40 IV q.12. 7. Zinc. OBJECTIVE: VITAL SIGNS: Blood pressure 93/53 to 123/71, pulse 77, temperature 98.2. GENERAL: He is intubated, somewhat pale. LUNGS: Clear. HEART: Regular rate and rhythm. ABDOMEN: Soft and nontender. LABORATORY DATA: White count 30.8, hemoglobin 8.5, platelet count 235. Sodium 150, potassium 4.1, BUN and creatinine are 31 and 0.8. ASSESSMENT: 1. Gastrointestinal hemorrhage. Yesterday, endoscopy revealed pyloric channel ulcer, incisura ulcer, likely stress-related to COVID, intubation, NSAIDs, steroids. 2. Hemoglobin dropped a bit yesterday after endoscopy. It is unclear if this was new or old bleeding, but it has been stable today with less output. Received a total of 3 units of blood yesterday. RECOMMENDATION: 1. Continue IV PPI q.12. 2. Restart tube feeds. 3. With hypernatremia, start free water at 250 q.6. In addition, IV fluid change made by Pulmonary/Critical Care. 4. Can restart tube feeds. Job ID: [id number]
[2020-12-16] MEDS: Propofol 1,000 MG/100 ML VIAL IV PRN ×2 (12:24→16:30)
[2020-12-16] MEDS ORDERED: Fentanyl CADD 100 ML ONE (14:50)
[2020-12-16] MEDS: Fentanyl CADD 100 ML IV SCH (14:56)
--- NOTE | 2020-12-16 20:06 | PDOC.HOSPP ---
- Subjective Encounter Date: 12/16/20 Encounter Time: 11:30 Subjective: Patient seen for follow-up for COVID-19 pneumonia. Intubated, could not complete review of systems. - Objective Vital Signs & Weight: Vital Signs (12 hours) Temp Pulse Resp BP 12/16/20 19:42 98.4 F 12/16/20 19:19 69 113/61 12/16/20 17:06 66 103/61 12/16/20 10:54 17 12/16/20 10:44 77 90/53 L Weight Admit Weight 175 lb Weight 188 lb 7.924 oz Most Recent Monitor Data Heart Rate from ECG 64 NIBP 102/69 NIBP BP-Mean 80 Respiration from ECG 11 SpO2 100 I&O: 12/15/20 12/16/20 12/17/20 06:59 06:59 06:59 Intake Total 7230.7 2094.1 1004 Output Total 2395 1550 630 Balance 4835.7 544.1 374 Result Diagrams: 12/16/20 03:00 12/16/20 03:00 Hospitalist ROS - Review of Systems ROS unobtainable: due to endotracheal tube - Medication Medications: Active Medications Generic Name Dose Route Start Last Admin Trade Name Freq PRN Reason Stop Dose Admin Dexamethasone 6 mg 12/14/20 09:00 12/16/20 07:28 Dexamethasone 4 Mg/Ml Vial SLOW IVP 6 mg DAILY BEATRICE Administration Docusate Sodium 100 mg 12/14/20 21:00 12/16/20 07:23 Docusate Sodium 100 Mg/10 Ml Udcup PER TUBE Not Given BID BEATRICE Guaifenesin 1,200 mg 12/06/20 09:00 12/16/20 07:23 Guaifenesin Er 600 Mg Tab PO Not Given Q12HR BEATRICE Norepinephrine Bitartrate 250 mls @ 0 mls/hr 12/12/20 11:00 12/15/20 04:59 Levophed IVPB 250 mls INF BEATRICE Administration Protocol Titrate Fentanyl 100 mls @ 0 mls/hr 12/15/20 12:15 12/16/20 14:56 Fentanyl Cadd IV 01/14/21 12:15 100 mls INF BEATRICE Administration Protocol Per Protocol Meropenem 1 gm/ Device 50 mls @ 100 mls/hr 12/15/20 22:00 12/16/20 09:05 IVPB 50 mls Q8HR BEATRICE Administration Sodium Chloride 1,000 mls @ 50 mls/hr 12/16/20 09:30 12/16/20 10:30 1/2 Normal Saline IV 1,000 mls .Q20H BEATRICE Administration Lorazepam 2 mg 12/10/20 11:45 12/16/20 12:24 Lorazepam 2 Mg/Ml Vial SLOW IVP 01/09/21 11:45 2 mg Q1H PRN Administration Breakthrough agitation Metoclopramide HCl 10 mg 12/15/20 14:00 12/16/20 13:46 Metoclopramide Hcl 10 Mg/2 Ml Vial IVP Not Given Q8HR BEATRICE Mometasone Furoate/Formoterol Fumar 2 puff 12/06/20 18:30 12/16/20 19:28 Mometasone 200 Mcg/Formoterol 5 Mcg 120 Puff Inhaler INH 2 puff BID-RT BEATRICE Administration Pantoprazole Sodium 40 mg 12/14/20 21:00 12/16/20 07:28 Pantoprazole 40 Mg Vial IVP 40 mg BID BEATRICE Administration Propofol 1,000 mg 12/10/20 11:45 12/16/20 16:30 Propofol 1,000 Mg/100 Ml Vial IV 01/09/21 11:45 1,000 mg INF PRN Administration TO ACHIEVE GOAL RASS Protocol Risperidone 0.5 mg 12/15/20 21:00 12/16/20 07:29 Risperidone 0.25 Mg Tab PO 0.5 mg BID BEATRICE Administration Sodium Chloride 10 ml 12/10/20 21:00 12/16/20 07:29 Flush - Normal Saline 10 Ml Syringe IVF 10 ml Q12HR BEATRICE Administration Zinc Sulfate 220 mg 12/06/20 09:00 12/16/20 07:28 Zinc Sulfate 220 Mg Cap PO 220 mg DAILY BEATRICE Administration - Exam ENT: normocephalic atraumatic Neck: no thyromegaly, no lymphadenopathy Heart: RRR Respiratory: rhonchi Gastrointestinal: soft Skin: no rashes Psychiatric - other findings: Could not assess Hosp A/P - Plan Patient is a pleasant 65-year-old gentleman who was admitted to the hospital on December 05, 2020 for Covid pneumonia, acute hypoxic respiratory failure, acute kidney injury, non-ST elevation myocardial infarction type II. He was initially treated with BiPAP, subsequently intubated. He is currently on dexamethasone. He had decreasing hemoglobin, PPI was started and H2 ernestine was discontinued. EGD showed gastric ulcers. OG tube feeds were on hold because of high residuals as well as concern over ischemic bowel because he had worsening vasopressor requirements. -Assessment (1) Pneumonia due to COVID-19 virus Code(s): U07.1 - COVID-19; J12.82 - Status: Acute (2) Sepsis Code(s): A41.9 - SEPSIS, UNSPECIFIED ORGANISM Status: Acute (3) Hypotension Status: Acute (4) Acute respiratory failure with hypoxia Code(s): J96.01 - ACUTE RESPIRATORY FAILURE WITH HYPOXIA Status: Acute (5) Demand myocardial infarction Code(s): I21.9 - ACUTE MYOCARDIAL INFARCTION, UNSPECIFIED Status: Acute (6) SAVANNAH Resolved, present on admission - Plan Patient is on dexamethasone and zinc. Patient is on meropenem SAVANNAH resolved. Tube feeds on hold secondary to high residuals and increasing requirement.. Continue Protonix IV. Status post EGD. Patient has gastric ulcers.
[2020-12-17] MEDS: Propofol 1,000 MG/100 ML VIAL IV PRN ×4 (00:22→22:19)
[2020-12-17] MEDS: Metoclopramide HCl 10 MG/2 ML VIAL IVP SCH ×4 (00:23→20:48)
[2020-12-17 04:22] LABS: Anion Gap 14 mmol/L (10-20); BUN (Urea Nitrogen) 29 mg/dL (8.4-25.7); Calc. Creatinine Clearance 124 mL/min (70-130); Calcium 7.6 mg/dL (7.8-10.44); Carbon Dioxide 25 mmol/L (23-31); Chloride 108 mmol/L (98-107); Glucose 100 mg/dL (80-115); Potassium 4.4 mmol/L (3.5-5.1); Sodium 143 mmol/L (136-145)
[2020-12-17 04:28] LABS: Band 9 % (5-11); Hemoglobin 8.4 g/dL (14.0-18.0); Lymphocytes 11 % (21-51); MDiff Complete? YES; Mean Corpuscular HGB CONC 33.7 g/dL (32.0-36.0); Mean Corpuscular Hemoglobin 31.2 pg (27.0-31.0); Mean Corpuscular Volume 92.8 fL (78.0-98.0); Mean Platelet Volume 8.4 fL (7.4-10.4); Metamyelocyte 1 % (0-0); Monocytes 3 % (0-10); Myelocyte 4 % (0-0); Neutrophil 72 % (42-75); Platelet Count 198 thou/uL (130-400); Red Blood Cell (RBC) Count 2.69 mill/uL (4.70-6.10); White Blood Cell (WBC) Count 26.8 thou/uL (4.8-10.8)
[2020-12-17] MEDS: MEROPENEM 1 GM/50 ML 1 GM in Premix Bag 1 BAG IVPB SCH ×3 (05:03→20:47)
[2020-12-17] MEDS: Sodium Chloride 0.45% 1,000 ML IV SCH (05:03)
[2020-12-17] MEDS: Docusate Sodium 100 MG/10 ML UDCUP PER TUBE SCH ×2 (07:02→20:30)
[2020-12-17] MEDS: Pantoprazole 40 MG VIAL IVP SCH ×2 (07:09→20:45)
[2020-12-17] MEDS: Dexamethasone 4 mg/ml Vial SLOW IVP SCH (07:09)
[2020-12-17] MEDS: Zinc Sulfate 220 MG CAP PO SCH (07:09)
[2020-12-17] MEDS: Lorazepam 2 MG/ML VIAL SLOW IVP PRN ×3 (07:09→16:38)
[2020-12-17] MEDS: risperiDONE 0.25 MG TAB PO SCH ×2 (07:10→20:44)
[2020-12-17] MEDS: guaiFENesin ER 600 MG TAB PO SCH ×2 (07:10→20:44)
[2020-12-17] MEDS: Mometasone 200 MCG/Formoterol 5 MCG 120 PUFF INHALER INH SCH ×2 (08:19→18:57)
[2020-12-17] MEDS ORDERED: Fentanyl CADD 100 ML ONE (09:55)
--- NOTE | 2020-12-17 12:20 | RAD ---
XR Chest 1 View Portable History: Intubated patient Comparison: Radiograph 2 days prior Findings: Endotracheal tube tip above the june 2.7 cm. Enteric tube tip gastric fundus. Similar appearance extensive airspace opacities. No pneumothorax or pneumomediastinum. Impression: Similar examination of the chest without improved lung aeration.
--- NOTE | 2020-12-17 12:22 | EKG ---
Test Reason : EMERGENCY EXAM Blood Pressure : / mmHG Vent. Rate : 139 BPM Atrial Rate : 139 BPM P-R Int : 126 ms QRS Dur : 080 ms QT Int : 290 ms P-R-T Axes : 003 025 019 degrees QTc Int : 441 ms Sinus tachycardia Anterior infarct , age undetermined Abnormal ECG Confirmed by CHYNA REZA, JIM Mckeon ([id number]), slot editor BIRD BAGLEY ([id number]) on 12/17/2020 12:22:01 PM Referred By: Confirmed By:JIM CLEMENTE MD
--- NOTE | 2020-12-17 13:29 | PRG ---
DATE OF SERVICE: This is a 35 minutes critical care time. SUBJECTIVE: The patient remains intubated on mechanical ventilation. There have been no acute changes in the patient's condition overnight. He has been weaned off the Levophed drip. He has actually become more hypertensive and agitated. PHYSICAL EXAMINATION: VITAL SIGNS: Temperature 98.7, pulse 119, blood pressure 171/120, O2 saturation 95%. He is currently SIMV rate 10, tidal volume 500, with a FiO2 of 30%. Intake was 2114, output 1979. HEENT: He has fairly frothy oropharyngeal secretions. NECK: No JVD. LUNGS: Coarse breath sounds. CARDIAC: S1 and S2. Regular. ABDOMEN: Soft and nontender. EXTREMITIES: Edematous. LABORATORY DATA: White blood cell count 26.8, hematocrit 25, platelet count 198. Sodium 143, potassium 4.4, chloride 108, CO2 of 25, BUN 29, creatinine 0.7, and glucose 100. X-ray shows continued bilateral infiltrates. ASSESSMENT: 1. COVID-19 pneumonia. 2. Acute hypoxic respiratory failure, requiring mechanical ventilation. 3. Agitation. PLAN: Levophed has been stopped. We will try to use Precedex in the place of propofol for sedation. Although his oxygenation looks good, he does not look like he would tolerate extubation very well at this time. We will continue to follow. Job ID: [id number]
--- NOTE | 2020-12-17 16:39 | PRG ---
DATE OF SERVICE: 12/17/2020 SUBJECTIVE: Mr. Ramos remains on the ventilator. He has had no bleeding. He is tolerating tube feeds. His sedation is being switched to Precedex as he gets a little bit irritated when his sedation weans. OBJECTIVE: VITAL SIGNS: Temperature is 98.7 pulse 114, blood pressure 170/110. LABORATORY DATA: White count 26,000, hemoglobin 8.4 and stable, platelet count 198. Last transfusion on the , he received 3 units of blood. ASSESSMENT: 1. COVID, intubated. 2. GI hemorrhage. Pyloric channel ulcer and incisura ulcers, nonbleeding, likely stress related. 3. Hypernatremia, improved down to 143 with tube feeds. RECOMMENDATIONS: 1. Continue IV PPI b.i.d. for a few more days and then go to once daily. 2. Advance tube feeding as tolerated. At this time, we will sign off. If I can be of any further assistance in patient's care, please do not hesitate to contact me. Job ID: [id number]
--- NOTE | 2020-12-17 17:14 | PDOC.HOSPP ---
- Subjective Encounter Date: 12/17/20 Encounter Time: 16:45 Subjective: F/u: COVID, intubated The patient has not had any bloody stools overnight. He was started on precedex today and propofol will be weaned gradually. He gets very agitated when weaned off sedation per nursing He is on tube feeds and has mild residuals. Reglan was not started due to diarrhea - Objective Vital Signs & Weight: Vital Signs (12 hours) Temp Pulse Resp BP Pulse Ox 12/17/20 16:52 99.0 F 12/17/20 15:06 110 H 160/83 H 12/17/20 10:33 79 95/56 L 12/17/20 09:45 95 12/17/20 06:56 18 97 Weight Admit Weight 175 lb Weight 188 lb 7.924 oz Most Recent Monitor Data Heart Rate from ECG 114 NIBP 178/110 NIBP BP-Mean 132 Respiration from ECG 28 SpO2 94 I&O: 12/16/20 12/17/20 12/18/20 06:59 06:59 06:59 Intake Total 2094.1 2115.8 1066.8 Output Total 1550 1980 485 Balance 544.1 135.8 581.8 Result Diagrams: 12/17/20 03:00 12/17/20 03:00 Hospitalist ROS - Review of Systems Constitutional: denies: fever, chills - Medication Medications: Active Medications Generic Name Dose Route Start Last Admin Trade Name Freq PRN Reason Stop Dose Admin Dexamethasone 6 mg 12/14/20 09:00 12/17/20 07:09 Dexamethasone 4 Mg/Ml Vial SLOW IVP 6 mg DAILY BEATRICE Administration Docusate Sodium 100 mg 12/14/20 21:00 12/17/20 07:02 Docusate Sodium 100 Mg/10 Ml Udcup PER TUBE Not Given BID BEATRICE Guaifenesin 1,200 mg 12/06/20 09:00 12/17/20 07:10 Guaifenesin Er 600 Mg Tab PO 1,200 mg Q12HR BEATRICE Administration Fentanyl 100 mls @ 0 mls/hr 12/15/20 12:15 12/16/20 14:56 Fentanyl Cadd IV 01/14/21 12:15 100 mls INF BEATRICE Administration Protocol Per Protocol Meropenem 1 gm/ Device 50 mls @ 100 mls/hr 12/15/20 22:00 12/17/20 13:14 IVPB 50 mls Q8HR BEATRICE Administration Sodium Chloride 1,000 mls @ 50 mls/hr 12/16/20 09:30 12/17/20 05:03 1/2 Normal Saline IV 1,000 mls .Q20H BEATRICE Administration Dexmedetomidine HCl 400 mcg/ 100 mls @ 0 mls/hr 12/17/20 13:30 12/17/20 14:50 Sodium Chloride IVPB 100 mls INF BEATRICE Administration Protocol Titrate Lorazepam 2 mg 12/10/20 11:45 12/17/20 16:38 Lorazepam 2 Mg/Ml Vial SLOW IVP 01/09/21 11:45 2 mg Q1H PRN Administration Breakthrough agitation Metoclopramide HCl 10 mg 12/15/20 14:00 12/17/20 13:14 Metoclopramide Hcl 10 Mg/2 Ml Vial IVP Not Given Q8HR BEATRICE Mometasone Furoate/Formoterol Fumar 2 puff 12/06/20 18:30 12/17/20 08:19 Mometasone 200 Mcg/Formoterol 5 Mcg 120 Puff Inhaler INH 2 puff BID-RT BEATRICE Administration Pantoprazole Sodium 40 mg 12/14/20 21:00 12/17/20 07:09 Pantoprazole 40 Mg Vial IVP 40 mg BID BEATRICE Administration Propofol 1,000 mg 12/10/20 11:45 12/17/20 16:23 Propofol 1,000 Mg/100 Ml Vial IV 01/09/21 11:45 1,000 mg INF PRN Administration TO ACHIEVE GOAL RASS Protocol Risperidone 0.5 mg 12/15/20 21:00 12/17/20 07:10 Risperidone 0.25 Mg Tab PO 0.5 mg BID BEATRICE Administration Sodium Chloride 10 ml 12/10/20 21:00 12/17/20 07:10 Flush - Normal Saline 10 Ml Syringe IVF 10 ml Q12HR BEATRICE Administration Zinc Sulfate 220 mg 12/06/20 09:00 12/17/20 07:09 Zinc Sulfate 220 Mg Cap PO 220 mg DAILY BEATRICE Administration - Exam General - other findings: intubated Eye: PERRL, anicteric sclera ENT: normocephalic atraumatic, no oropharyngeal lesions Neck: no JVD Heart: RRR, no murmur, no gallops, no rubs Respiratory: CTAB, no wheezes, no rales, no ronchi Gastrointestinal: soft, non-tender, non-distended, normal bowel sounds Extremities: no cyanosis, no clubbing, no edema Hosp A/P - Plan Chest X ray 12/17: extensive airspace opacities. This is a 65 year old male with no knownp ast medical history presenting with shortness of breath, altered mental stauts and COVID. Chest X ray showed bibasilar infiltrate Acute hypoxic respiratory failure secondary to COVID pneumonia - still intubated. Precedex has been started and sedation is being weaned gradually. Blood culture shows 1/2 coag negative staph. Respiratory culture unremarkable - WBC is down to 26. He was started on meropenem on 12/15, will continue for now. Chest Xray today still showing extensive opacities. Will trial one dose of lasix due to elevated BP and is over 1L positive Leukocytosis - WBC improving to 26. Urine culture normal. 1/2 blood culture positive . Could be from steroids Hypertensive urgency - off levofed. Will start amlodipine. Acute GI bleed - continue protonix drip. S/p endoscopy showing ulcers History of COPD - continue dulera and steroids
[2020-12-17] MEDS: Furosemide 20 MG/2 ML VIAL SLOW IVP SCH ×2 (17:27→17:56)
[2020-12-17] MEDS ORDERED: Amlodipine 5 MG TAB PO SCH (17:30)
[2020-12-18] MEDS: Sodium Chloride 0.45% 1,000 ML IV SCH ×2 (01:48→20:47)
[2020-12-18 04:18] LABS: Anion Gap 14 mmol/L (10-20); BUN (Urea Nitrogen) 42 mg/dL (8.4-25.7); Calc. Creatinine Clearance 62 mL/min (70-130); Calcium 7.5 mg/dL (7.8-10.44); Carbon Dioxide 25 mmol/L (23-31); Chloride 107 mmol/L (98-107); Glucose 97 mg/dL (80-115); Potassium 4.2 mmol/L (3.5-5.1); Sodium 142 mmol/L (136-145)
[2020-12-18] MEDS: Propofol 1,000 MG/100 ML VIAL IV PRN ×2 (04:23→09:32)
[2020-12-18 04:33] LABS: Band 4 % (5-11); Eosinophils 1 % (0-10); Hemoglobin 7.5 g/dL (14.0-18.0); Lymphocytes 16 % (21-51); MDiff Complete? YES; Mean Corpuscular HGB CONC 33.4 g/dL (32.0-36.0); Mean Corpuscular Volume 92.9 fL (78.0-98.0); Mean Platelet Volume 7.4 fL (7.4-10.4); Metamyelocyte 1 % (0-0); Monocytes 2 % (0-10); Myelocyte 3 % (0-0); Neutrophil 73 % (42-75); Platelet Count 192 thou/uL (130-400); RBC Distribution Width 14.9 % (11.5-14.5); Red Blood Cell (RBC) Count 2.43 mill/uL (4.70-6.10); White Blood Cell (WBC) Count 21.2 thou/uL (4.8-10.8)
[2020-12-18] MEDS: MEROPENEM 1 GM/50 ML 1 GM in Premix Bag 1 BAG IVPB SCH ×3 (05:24→21:02)
[2020-12-18] MEDS: Metoclopramide HCl 10 MG/2 ML VIAL IVP SCH ×3 (05:27→21:02)
[2020-12-18] MEDS ORDERED: Fentanyl CADD 100 ML ONE ×2 (06:08→23:26)
[2020-12-18] MEDS: Fentanyl CADD 100 ML IV SCH ×2 (06:10→23:31)
[2020-12-18] MEDS: Docusate Sodium 100 MG/10 ML UDCUP PER TUBE SCH ×2 (07:37→20:44)
[2020-12-18] MEDS: Pantoprazole 40 MG VIAL IVP SCH ×2 (07:37→20:45)
[2020-12-18] MEDS: Zinc Sulfate 220 MG CAP PO SCH (07:38)
[2020-12-18] MEDS: Lorazepam 2 MG/ML VIAL SLOW IVP PRN ×2 (07:38→21:17)
[2020-12-18] MEDS: Dexamethasone 4 mg/ml Vial SLOW IVP SCH (07:38)
[2020-12-18] MEDS: risperiDONE 0.25 MG TAB PO SCH ×2 (07:39→20:45)
[2020-12-18] MEDS: guaiFENesin ER 600 MG TAB PO SCH ×2 (07:39→20:45)
[2020-12-18] MEDS: Mometasone 200 MCG/Formoterol 5 MCG 120 PUFF INHALER INH SCH ×2 (08:08→19:53)
[2020-12-18] MEDS ORDERED: Amlodipine 5 MG TAB PO SCH (09:00)
--- NOTE | 2020-12-18 09:28 | PRG ---
DATE OF SERVICE: 12/18/2020 SUBJECTIVE: The patient remains on mechanical ventilation for COVID-19 pneumonia. There has been no acute changes overnight. OBJECTIVE: VITAL SIGNS: Temperature is 99, pulse 84, blood pressure 95/60, O2 saturation 100%. He is currently sedated on Precedex, fentanyl and propofol. His total intake for the last 24 hours has been 3197, output 905. HEENT: Unremarkable. NECK: No JVD. LUNGS: Clear. CARDIAC: S1, S2 regular. ABDOMEN: Soft. EXTREMITIES: No edema. LABORATORY DATA: White blood cell count 21, hematocrit 22.6, and platelet count 192. Sodium 142, potassium 4.2, chloride 107, CO2 of 25, BUN 42, creatinine 1.4, and glucose 97. IMAGING: X-ray continues to show persistent bilateral infiltrates. ASSESSMENT: 1. COVID-19 pneumonia with acute respiratory failure, requiring mechanical ventilation. 2. Anemia. PLAN: Continue steroids. Anticoagulation is currently being held because of bleeding issues. I would not give him any more diuretics at the current time. Job ID: [id number]
--- NOTE | 2020-12-18 16:45 | PDOC.HOSPP ---
- Subjective Encounter Date: 12/18/20 Encounter Time: 14:00 Subjective: F/u: COVID The patient is still intubated. His urine output dropped to 30-40 /hour per nursing. Previously it was 75/hour. Blood pressure ranges from 90 to 130. Patient's propofol has been weaned down and his precedex has been titrated up and he is tolerating that well He was switched to SIMV this morning. FiO2 is at 30% - Objective Vital Signs & Weight: Vital Signs (12 hours) Temp Pulse Resp BP Pulse Ox 12/18/20 14:34 79 111/76 12/18/20 10:45 66 87/60 L 12/18/20 10:00 99.1 F 12/18/20 08:00 61 12/18/20 07:39 64 96/60 12/18/20 07:28 24 H 98 Weight Admit Weight 175 lb Weight 188 lb 7.924 oz Most Recent Monitor Data Heart Rate from ECG 80 NIBP 120/74 NIBP BP-Mean 89 Respiration from ECG 15 SpO2 100 I&O: 12/17/20 12/18/20 12/19/20 06:59 06:59 06:59 Intake Total 2115.8 3197.8 104.3 Output Total 1980 905 320 Balance 135.8 2292.8 -215.7 Result Diagrams: 12/18/20 03:32 12/18/20 03:32 Hospitalist ROS - Review of Systems Constitutional: denies: fever, chills - Medication Medications: Active Medications Generic Name Dose Route Start Last Admin Trade Name Freq PRN Reason Stop Dose Admin Amlodipine Besylate 5 mg 12/18/20 09:00 12/18/20 07:39 Amlodipine 5 Mg Tab PO 5 mg DAILY BEATRICE Administration Dexamethasone 6 mg 12/14/20 09:00 12/18/20 07:38 Dexamethasone 4 Mg/Ml Vial SLOW IVP 6 mg DAILY BEATRICE Administration Docusate Sodium 100 mg 12/14/20 21:00 12/18/20 07:37 Docusate Sodium 100 Mg/10 Ml Udcup PER TUBE 100 mg BID BEATRICE Administration Guaifenesin 1,200 mg 12/06/20 09:00 12/18/20 07:39 Guaifenesin Er 600 Mg Tab PO 1,200 mg Q12HR BEATRICE Administration Fentanyl 100 mls @ 0 mls/hr 12/15/20 12:15 12/18/20 06:10 Fentanyl Cadd IV 01/14/21 12:15 100 mls INF BEATRICE Administration Protocol Per Protocol Meropenem 1 gm/ Device 50 mls @ 100 mls/hr 12/15/20 22:00 12/18/20 12:43 IVPB 50 mls Q8HR BEATRICE Administration Sodium Chloride 1,000 mls @ 50 mls/hr 12/16/20 09:30 12/18/20 01:48 1/2 Normal Saline IV 1,000 mls .Q20H BEATRICE Administration Dexmedetomidine HCl 400 mcg/ 100 mls @ 0 mls/hr 12/17/20 13:30 12/18/20 15:21 Sodium Chloride IVPB 100 mls INF BEATRICE Administration Protocol Titrate Lorazepam 2 mg 12/10/20 11:45 12/18/20 07:38 Lorazepam 2 Mg/Ml Vial SLOW IVP 01/09/21 11:45 2 mg Q1H PRN Administration Breakthrough agitation Metoclopramide HCl 10 mg 12/15/20 14:00 12/18/20 12:44 Metoclopramide Hcl 10 Mg/2 Ml Vial IVP 10 mg Q8HR BEATRICE Administration Mometasone Furoate/Formoterol Fumar 2 puff 12/06/20 18:30 12/18/20 08:08 Mometasone 200 Mcg/Formoterol 5 Mcg 120 Puff Inhaler INH 2 puff BID-RT BEATRICE Administration Pantoprazole Sodium 40 mg 12/14/20 21:00 12/18/20 07:37 Pantoprazole 40 Mg Vial IVP 40 mg BID BEATRICE Administration Propofol 1,000 mg 12/10/20 11:45 12/18/20 09:32 Propofol 1,000 Mg/100 Ml Vial IV 01/09/21 11:45 1,000 mg INF PRN Administration TO ACHIEVE GOAL RASS Protocol Risperidone 0.5 mg 12/15/20 21:00 12/18/20 07:39 Risperidone 0.25 Mg Tab PO 0.5 mg BID BEATRICE Administration Sodium Chloride 10 ml 12/10/20 21:00 12/18/20 07:39 Flush - Normal Saline 10 Ml Syringe IVF 10 ml Q12HR BEATRICE Administration Zinc Sulfate 220 mg 12/06/20 09:00 12/18/20 07:38 Zinc Sulfate 220 Mg Cap PO 220 mg DAILY BEATRICE Administration - Exam General - other findings: intubated Heart: RRR Respiratory - other findings: diminished Gastrointestinal: soft, distended Extremities: no cyanosis, no clubbing, no edema Skin: normal turgor, no lesions, no rashes Neurological: cranial nerve grossly intact, normal sensation to touch, no weakness Musculoskeletal: normal tone, normal strength, no muscle wasting Hosp A/P - Plan Chest X ray 12/17: extensive airspace opacities. This is a 65 year old male with no known past medical history presenting with shortness of breath, altered mental stauts and COVID. Chest X ray showed bibasilar infiltrate Acute hypoxic respiratory failure secondary to COVID pneumonia - still intubated. He is being weaned off propofol and is on precedex. Blood culture shows 1/2 coag negative staph. Repeat blood cultures negative. Respiratory culture unremarkable - WBC is down to 21. On meropenem day 3. Continue antibiotics for seven day course Hypertensive urgency - resolved Hypotension - BP now hypotensive off levofed. Will discontinue amlodipine. He did get one dose lasix yesterday but will hold further Acute GI bleed - continue protonix drip. S/p endoscopy showing ulcers History of COPD - continue dulera and steroids
--- NOTE | 2020-12-18 18:01 | PRG ---
DATE OF SERVICE: 12/18/2020 SUBJECTIVE: Mr. Ramos remains intubated. He is tolerating tube feeds. MEDICATIONS: 1. Dexamethasone. 2. Dexmedetomidine. 3. Meropenem. 4. Dulera. 5. Protonix 40 IV b.i.d. 6. Half-normal saline at 50. OBJECTIVE: VITAL SIGNS: T-max 99.3, pulse 80, blood pressure 122/70, resting comfortably on vent. LABORATORY DATA: White count 21,000, hemoglobin 7.5 down from 8.4 yesterday, platelets 192. Sodium 142, potassium 4.2, BUN and creatinine 42 and 1.48 up from 29 and 0.74. ASSESSMENT: 1. History of gastrointestinal bleed from ulcer. No bleeding per nurse. 2. Anemia, slight drop in hemoglobin without any overt bleeding. BUN and creatinine low, but up. RECOMMENDATIONS: 1. Monitor hemoglobin and hematocrit. If Further drop, was given blood. 2. Continue IV PPI b.i.d. Continue tube feeds. Consider restarting low-dose anticoagulation in the next 24 to 48 hours if felt to be necessary from thrombotic risk of COVID. Job ID: [id number]
--- NOTE | 2020-12-19 00:11 | PDOC.BPN ---
- Brief Progress Note Encounter Date: 12/19/20 I was informed about MRSE growing in 1 of 2 bottles. We will start vancomycin and await potential growth in the other bottle. Although this may be a contaminant will cover for now. Consult ID for further antibiotic management
[2020-12-19] MEDS ORDERED: Vancomycin HCl 1.75 GM in Sodium Chloride 0.9% 500 ML IVPB SCH (01:00)
[2020-12-19] MEDS: Propofol 1,000 MG/100 ML VIAL IV PRN ×3 (02:36→16:44)
[2020-12-19] MEDS: Lorazepam 2 MG/ML VIAL SLOW IVP PRN ×2 (02:54→16:44)
[2020-12-19 03:25] LABS: Hemoglobin 8.1 g/dL (14.0-18.0); Mean Corpuscular HGB CONC 33.8 g/dL (32.0-36.0); Mean Corpuscular Hemoglobin 31.7 pg (27.0-31.0); Mean Corpuscular Volume 93.7 fL (78.0-98.0); Mean Platelet Volume 7.8 fL (7.4-10.4); Platelet Count 162 thou/uL (130-400); RBC Distribution Width 15.4 % (11.5-14.5); Red Blood Cell (RBC) Count 2.54 mill/uL (4.70-6.10); White Blood Cell (WBC) Count 22.1 thou/uL (4.8-10.8)
[2020-12-19 03:42] LABS: Band 3 % (5-11); Eosinophils 1 % (0-10); Lymphocytes 5 % (21-51); MDiff Complete? YES; Metamyelocyte 1 % (0-0); Monocytes 4 % (0-10); Myelocyte 1 % (0-0); Neutrophil 85 % (42-75)
[2020-12-19 03:51] LABS: Anion Gap 14 mmol/L (10-20); BUN (Urea Nitrogen) 53 mg/dL (8.4-25.7); Calc. Creatinine Clearance 61 mL/min (70-130); Calcium 7.4 mg/dL (7.8-10.44); Carbon Dioxide 24 mmol/L (23-31); Chloride 109 mmol/L (98-107); Glucose 114 mg/dL (80-115); Potassium 3.8 mmol/L (3.5-5.1); Sodium 143 mmol/L (136-145)
[2020-12-19] MEDS: Metoclopramide HCl 10 MG/2 ML VIAL IVP SCH ×3 (05:40→21:31)
[2020-12-19] MEDS: MEROPENEM 1 GM/50 ML 1 GM in Premix Bag 1 BAG IVPB SCH ×3 (05:40→21:30)
[2020-12-19] MEDS: Mometasone 200 MCG/Formoterol 5 MCG 120 PUFF INHALER INH SCH ×2 (07:01→18:55)
[2020-12-19] MEDS: Pantoprazole 40 MG VIAL IVP SCH ×2 (09:24→21:29)
[2020-12-19] MEDS: guaiFENesin ER 600 MG TAB PO SCH ×2 (09:24→21:30)
[2020-12-19] MEDS: Docusate Sodium 100 MG/10 ML UDCUP PER TUBE SCH ×2 (09:24→21:30)
[2020-12-19] MEDS: Zinc Sulfate 220 MG CAP PO SCH (09:25)
[2020-12-19] MEDS: Dexamethasone 4 mg/ml Vial SLOW IVP SCH (09:25)
[2020-12-19] MEDS: risperiDONE 0.25 MG TAB PO SCH ×2 (09:31→21:29)
--- NOTE | 2020-12-19 10:04 | PRG ---
DATE OF SERVICE: 12/19/2020 SUBJECTIVE: Amador Ramos is a 65-year-old gentleman, intubated in the vent, still very encephalopathic. OBJECTIVE: VITAL SIGNS: Temperature 98, pulse 117, blood pressure 90/57, respiratory rate 18. CHEST: No wheezing or crackles. CARDIAC: Normal S1, S2. No gallops. ABDOMEN: No masses. ASSESSMENT: Respiratory failure, gong positive pneumonia, azotemia, encephalopathy. PLAN: He is not weanable at this stage. He has renal function that is abnormal. I would probably avoid to give him vancomycin. He has coagulase negative Staph, which is probably a contamination, though I may switch him over to some Zyvox. He has ongoing leukocytosis. Still not weanable. We will probably start decreasing his vent requirements in the next day or two. This is a day #14 in the hospital. Job ID: [id number]
--- NOTE | 2020-12-19 16:24 | PRG ---
DATE OF SERVICE: 12/19/2020 SUBJECTIVE: Mr. Ramos had no further bleeding. His sedation is being weaned. OBJECTIVE: VITAL SIGNS: Blood pressure is 129/63, pulse 109. FiO2 of 30%. Ins and out, 1566 and 2401. ABDOMEN: Soft, nontender. GENERAL: He is intubated, sedated. LABORATORY DATA: White count hemoglobin 8.1, platelet count 162. Sodium 143, potassium 3.8, BUN and creatinine are 53 and 1.51. Hepatitis A, B, C are negative on 12/16/2020. gastritis, intestinal metaplasia, and focal mild dysplasia. ASSESSMENT: 1. GI hemorrhage secondary to ulcers in the setting of COVID, on anticoagulation and steroids. 2. Biopsies do show some intestinal metaplasias. He will need followup endoscopy in 4 to 6 weeks to confirm healing of ulcers and rule out malignancy. These were benign appearing and very small. Helicobacter pylori was negative. 3. No signs of ongoing bleeding with stable hemoglobin. 4. Ventilator-dependent. RECOMMENDATIONS: 1. Continue IV PPIs. 2. If anticoagulation is to be restarted for thrombosis risk, it would be reasonable. We will follow from a distance. Please reconsult as needed. The patient is tolerating tube feeds. Job ID: [id number]
[2020-12-19] MEDS ORDERED: Fentanyl CADD 100 ML ONE (16:34)
--- NOTE | 2020-12-19 17:05 | PDOC.HOSPP ---
- Subjective Encounter Date: 12/19/20 Encounter Time: 12:30 Subjective: F/u: COVID The patient is still intubated. He gets very agitated off sedation per nursing. URine output has increased to 100/hour. - Objective Vital Signs & Weight: Vital Signs (12 hours) Temp Pulse Resp BP Pulse Ox 12/19/20 16:00 25 H 12/19/20 15:36 109 H 129/83 12/19/20 15:00 99.3 F 12/19/20 14:00 19 12/19/20 12:00 99.1 F 15 12/19/20 10:44 121 H 122/75 12/19/20 10:00 23 H 12/19/20 08:00 21 H 97 12/19/20 07:02 76 87/55 L 12/19/20 07:00 99.8 F H Weight Admit Weight 175 lb Weight 188 lb 7.924 oz Most Recent Monitor Data Heart Rate from ECG 112 NIBP 120/85 NIBP BP-Mean 96 Respiration from ECG 35 SpO2 98 I&O: 12/18/20 12/19/20 12/20/20 06:59 06:59 06:59 Intake Total 3197.8 1566.2 1548 Output Total 905 2401 1590 Balance 2292.8 -834.8 -42 Result Diagrams: 12/19/20 03:00 12/19/20 03:00 Hospitalist ROS - Review of Systems ROS unobtainable: due to endotracheal tube - Medication Medications: Active Medications Generic Name Dose Route Start Last Admin Trade Name Freq PRN Reason Stop Dose Admin Dexamethasone 6 mg 12/14/20 09:00 12/19/20 09:25 Dexamethasone 4 Mg/Ml Vial SLOW IVP 6 mg DAILY BEATRICE Administration Docusate Sodium 100 mg 12/14/20 21:00 12/19/20 09:24 Docusate Sodium 100 Mg/10 Ml Udcup PER TUBE 100 mg BID BEATRICE Administration Guaifenesin 1,200 mg 12/06/20 09:00 12/19/20 09:24 Guaifenesin Er 600 Mg Tab PO 1,200 mg Q12HR BEATRICE Administration Fentanyl 100 mls @ 0 mls/hr 12/15/20 12:15 12/18/20 23:31 Fentanyl Cadd IV 01/14/21 12:15 100 mls INF BEATRICE Administration Protocol Per Protocol Meropenem 1 gm/ Device 50 mls @ 100 mls/hr 12/15/20 22:00 12/19/20 13:42 IVPB 50 mls Q8HR BEATRICE Administration Sodium Chloride 1,000 mls @ 50 mls/hr 12/16/20 09:30 12/18/20 20:47 1/2 Normal Saline IV 1,000 mls .Q20H BEATRICE Administration Dexmedetomidine HCl 400 mcg/ 100 mls @ 0 mls/hr 12/17/20 13:30 12/19/20 16:46 Sodium Chloride IVPB 100 mls INF BEATRICE Administration Protocol Titrate Lorazepam 2 mg 12/10/20 11:45 12/19/20 16:44 Lorazepam 2 Mg/Ml Vial SLOW IVP 01/09/21 11:45 2 mg Q1H PRN Administration Breakthrough agitation Metoclopramide HCl 10 mg 12/15/20 14:00 12/19/20 13:42 Metoclopramide Hcl 10 Mg/2 Ml Vial IVP 10 mg Q8HR BEATRICE Administration Mometasone Furoate/Formoterol Fumar 2 puff 12/06/20 18:30 12/19/20 07:01 Mometasone 200 Mcg/Formoterol 5 Mcg 120 Puff Inhaler INH 2 puff BID-RT BEATRICE Administration Pantoprazole Sodium 40 mg 12/14/20 21:00 12/19/20 09:24 Pantoprazole 40 Mg Vial IVP 40 mg BID BEATRICE Administration Propofol 1,000 mg 12/10/20 11:45 12/19/20 16:44 Propofol 1,000 Mg/100 Ml Vial IV 01/09/21 11:45 1,000 mg INF PRN Administration TO ACHIEVE GOAL RASS Protocol Risperidone 0.5 mg 12/15/20 21:00 12/19/20 09:31 Risperidone 0.25 Mg Tab PO 0.5 mg BID BEATRICE Administration Sodium Chloride 10 ml 12/10/20 21:00 12/19/20 09:24 Flush - Normal Saline 10 Ml Syringe IVF 10 ml Q12HR BEATRICE Administration Zinc Sulfate 220 mg 12/06/20 09:00 12/19/20 09:25 Zinc Sulfate 220 Mg Cap PO 220 mg DAILY BEATRICE Administration - Exam General Appearance: NAD General - other findings: intubated Eye: PERRL, anicteric sclera ENT: normocephalic atraumatic, no oropharyngeal lesions Neck: no JVD Heart: RRR, no murmur, no gallops, no rubs Respiratory: CTAB, no wheezes, no rales, no ronchi Gastrointestinal: soft, non-tender, non-distended Extremities: no cyanosis, no clubbing, no edema Skin: normal turgor, no lesions, no rashes Hosp A/P - Plan Chest X ray 12/17: extensive airspace opacities. This is a 65 year old male with no known past medical history presenting with shortness of breath, altered mental stauts and COVID. Chest X ray showed bibasilar infiltrate Acute hypoxic respiratory failure secondary to COVID pneumonia - still intubated. He is being weaned off propofol and is on precedex. Blood culture shows 1/2 coag negative staph. Repeat blood cultures show 1/2 coag negative staph Respiratory culture unremarkable - WBC is 22. On meropenem day 4. Continue antibiotics for seven day course - he is on minimal vent settings, may be weaned in the next day or 2 per pulmonary Hypertension- controlled - not on any medicines SAVANNAH - creatinine up to 1.51. Continue NS 50/hour . He did get lasix on 12/17 Acute GI bleed - continue protonix drip. S/p endoscopy showing ulcers History of COPD - continue dulera and steroids
[2020-12-19] MEDS: Sodium Chloride 0.45% 1,000 ML IV SCH (18:24)
--- NOTE | 2020-12-19 18:38 | CON ---
DATE OF CONSULTATION: REASON FOR CONSULTATION: Bacteremia. HISTORY: A 65-year-old patient with history of no significant past medical issues, who presented on December 05, on day #13 of his COVID-19 illness reportedly. He had developed worsening respiratory distress and hypoxemia. His BP was 106/79, pulse 142, respirations 50, and O2 saturation now 82% on a non-rebreather Ventimask, so he had to be intubated and he has been managed with Decadron and ventilatory support. Has had antimicrobial therapy given with Zyvox and meropenem and he had a central line which was removed and now he has 2 midlines, he is still orotracheally intubated and we were asked to see him because of bacteremia with coagulase- negative Staph. He had most likely contaminants. He had 1 positive culture on arrival and then another 1 just a few days ago, just 1 set out of 2. Mr. Ramos is delirious. He is unable to interact with examiner, does not establish eye contact. PAST MEDICAL HISTORY: Described by numerous notes as negative prior to this event. PAST SURGICAL HISTORY: Unknown. ALLERGIES: NO DRUG ALLERGIES ARE NOTED IN THE RECORD. CURRENT MEDICATIONS: Include; 1. Precedex. 2. Fentanyl. 3. Mucinex. 4. Zyvox. 5. Meropenem. PHYSICAL EXAMINATION: VITAL SIGNS: T-max 99.1 on December 18, is now 99.8 earlier today. Orotracheal intubation. SKIN: With two midlines in each upper extremity. He has a Sanchez catheter. No other areas of skin breakdown. No lymphadenopathy. HEENT: Ocular movements are conjugate. Pupils are 2 mm and reactive. Oral cavity with still quite a few teeth in place with some periodontitis and gum disease. No jugular vein distention. LUNGS: Symmetric air entry. Coarse breath sounds, but not many crackles. HEART: S1, S2. Regular rate. ABDOMEN: Soft, not distended or tender. No ascites. No bladder distention. EXTREMITIES: No joint inflammatory activity. He is able to move extremities, but does not follow commands. No edema. Pulses are 1+ in dorsalis pedis. Plantar responses are indifferent. PSYCHIATRIC: He is obtunded and delirious, cannot interact with examiner. LABORATORY DATA: White cell count is 22 from 30, hemoglobin 8.1, platelets 162 with 85% neutrophils. D-dimer was down from 20 to 6.52. Sodium 143, creatinine 1.51, which is markedly improved from admission, but still higher than previously. Urinalysis with 7 to 10 wbc's from admission. We had 2 sets of blood cultures, 1/2 positive for coagulase-negative Staph, likely contaminant. Chest x-ray has shown improvement from admission. ASSESSMENT: Unknown past medical history with severe COVID pneumonia requiring mechanical ventilation for the past four 2 weeks. The last note by Dr. Varela today states that he is not weanable and maybe we will try decreasing his vent requirements in next day or 2. DISCUSSION: The patient has had consistent leukocytosis with mostly mature neutrophilia pattern in the peripheral blood since the admission date and in part this is due to the corticosteroids, the fact he has had some low-grade temperature elevation up to 99.8 and he does not have anymore lines, the bacteremia is most likely contamination of the sample. I would recommend, in the next few days, if there are no further developments to consider discontinuing antimicrobial therapy, next generation sequencing can be used to identify pathogens that are not obvious in the clinical or laboratory results available, but I do not think that we are in a situation where I would recommend submitting that test yet since it is very costly. Job ID: [id number] [facility]
[2020-12-19] MEDS: Linezolid 600 MG TAB PO SCH (22:23)
[2020-12-19] MEDS ORDERED: Vancomycin HCl 1.25 GM in Sodium Chloride 0.9% 250 ML 250 ML IVPB SCH (23:59)
[2020-12-20 04:09] LABS: Anion Gap 13 mmol/L (10-20); BUN (Urea Nitrogen) 38 mg/dL (8.4-25.7); Calc. Creatinine Clearance 116 mL/min (70-130); Calcium 7.6 mg/dL (7.8-10.44); Carbon Dioxide 26 mmol/L (23-31); Chloride 108 mmol/L (98-107); Glucose 111 mg/dL (80-115); Potassium 4.2 mmol/L (3.5-5.1); Sodium 143 mmol/L (136-145)
[2020-12-20 04:31] LABS: Band 16 % (5-11); Eosinophils 2 % (0-10); Hemoglobin 7.9 g/dL (14.0-18.0); Lymphocytes 10 % (21-51); MDiff Complete? YES; Mean Corpuscular HGB CONC 33.7 g/dL (32.0-36.0); Mean Corpuscular Hemoglobin 32.1 pg (27.0-31.0); Mean Corpuscular Volume 95.4 fL (78.0-98.0); Mean Platelet Volume 7.7 fL (7.4-10.4); Monocytes 2 % (0-10); Neutrophil 70 % (42-75); Platelet Count 172 thou/uL (130-400); Red Blood Cell (RBC) Count 2.47 mill/uL (4.70-6.10); White Blood Cell (WBC) Count 23.7 thou/uL (4.8-10.8)
[2020-12-20] MEDS: Metoclopramide HCl 10 MG/2 ML VIAL IVP SCH ×3 (04:50→21:05)
[2020-12-20] MEDS: MEROPENEM 1 GM/50 ML 1 GM in Premix Bag 1 BAG IVPB SCH ×3 (05:04→21:05)
[2020-12-20] MEDS: Mometasone 200 MCG/Formoterol 5 MCG 120 PUFF INHALER INH SCH ×2 (07:26→18:59)
[2020-12-20] MEDS: Dexamethasone 4 mg/ml Vial SLOW IVP SCH (08:29)
[2020-12-20] MEDS: Pantoprazole 40 MG VIAL IVP SCH ×2 (08:29→20:59)
[2020-12-20] MEDS: Propofol 1,000 MG/100 ML VIAL IV PRN ×3 (08:29→21:05)
[2020-12-20] MEDS: risperiDONE 0.25 MG TAB PO SCH ×2 (08:30→20:59)
[2020-12-20] MEDS: Zinc Sulfate 220 MG CAP PO SCH (08:30)
[2020-12-20] MEDS: guaiFENesin ER 600 MG TAB PO SCH ×2 (08:30→20:58)
[2020-12-20] MEDS: Docusate Sodium 100 MG/10 ML UDCUP PER TUBE SCH ×2 (08:31→20:58)
[2020-12-20] MEDS: Linezolid 600 MG TAB PO SCH ×2 (08:42→20:58)
--- NOTE | 2020-12-20 10:00 | PRG ---
DATE OF SERVICE: 12/20/2020 SUBJECTIVE: This morning, he is doing somewhat better. His saturations are better. OBJECTIVE: VITAL SIGNS: Temperature 97, pulse 105, blood pressure 100/80, saturations 99%. He has a rate of 8, 40% of FiO2. His I's and O's have been consistently positive. CHEST: No wheezing, no crackles. CARDIAC: Normal S1. ABDOMEN: No masses. He is still encephalopathic. He is still coughing. LABORATORY DATA: White count 23,000, big left shift, 76 neutrophils, 16 bands. Lytes are normal. BUN is 38. ASSESSMENT: Delgado positive pneumonia, respiratory failure superimposed probably community-acquired pneumonia, encephalopathy. Added budesonide to his cough regime, start him on broad-spectrum antibiotics, try to culture his sputum if possible. Continue supportive care. Day 15 in the hospital. One-half hour of critical care time. Job ID: [id number]
[2020-12-20] MEDS: Sodium Chloride 0.45% 1,000 ML IV SCH (14:34)
--- NOTE | 2020-12-20 17:21 | PDOC.HOSPP ---
- Subjective Encounter Date: 12/20/20 Encounter Time: 10:00 Subjective: F/u: intubated THe patient is still intubated. He still gets very agitated when trying to wean off sedation per nursing. He is on precedex drip - Objective Vital Signs & Weight: Vital Signs (12 hours) Temp Pulse Resp BP BP BP Pulse Ox 12/20/20 16:00 22 H 12/20/20 15:00 98.9 F 12/20/20 14:36 53 L 112/78 12/20/20 14:00 15 12/20/20 12:00 16 12/20/20 11:00 98.9 F 12/20/20 10:31 85 112/69 12/20/20 10:00 17 12/20/20 09:38 97/64 112/68 12/20/20 08:00 19 100 12/20/20 07:26 105 H 120/80 12/20/20 07:00 99 F Weight Admit Weight 175 lb Weight 188 lb 7.924 oz Most Recent Monitor Data Heart Rate from ECG 87 NIBP 115/73 NIBP BP-Mean 87 Respiration from ECG 19 SpO2 97 I&O: 12/19/20 12/20/20 12/21/20 06:59 06:59 06:59 Intake Total 1566.2 4494 1434 Output Total 2401 3960 1405 Balance -834.8 534 29 Result Diagrams: 12/20/20 03:15 12/20/20 03:15 Hospitalist ROS - Review of Systems ROS unobtainable: due to endotracheal tube - Medication Medications: Active Medications Generic Name Dose Route Start Last Admin Trade Name Amilacr PRN Reason Stop Dose Admin Dexamethasone 6 mg 12/14/20 09:00 12/20/20 08:29 Dexamethasone 4 Mg/Ml Vial SLOW IVP 6 mg DAILY BEATRICE Administration Docusate Sodium 100 mg 12/14/20 21:00 12/20/20 08:31 Docusate Sodium 100 Mg/10 Ml Udcup PER TUBE Not Given BID BEATRICE Guaifenesin 1,200 mg 12/06/20 09:00 12/20/20 08:30 Guaifenesin Er 600 Mg Tab PO 1,200 mg Q12HR BEATRICE Administration Fentanyl 100 mls @ 0 mls/hr 12/15/20 12:15 12/18/20 23:31 Fentanyl Cadd IV 02/13/21 12:15 100 mls INF BEATRICE Administration Protocol Per Protocol Meropenem 1 gm/ Device 50 mls @ 100 mls/hr 12/15/20 22:00 12/20/20 14:31 IVPB 50 mls Q8HR BEATRICE Administration Sodium Chloride 1,000 mls @ 50 mls/hr 12/16/20 09:30 12/20/20 14:34 1/2 Normal Saline IV 1,000 mls .Q20H BEATRICE Administration Dexmedetomidine HCl 400 mcg/ 100 mls @ 0 mls/hr 12/17/20 13:30 12/20/20 08:29 Sodium Chloride IVPB 100 mls INF BEATRICE Administration Protocol Titrate Linezolid 600 mg 12/19/20 21:00 12/20/20 08:42 Linezolid 600 Mg Tab PO 12/29/20 21:01 600 mg Q12HR BEATRICE Administration Metoclopramide HCl 10 mg 12/15/20 14:00 12/20/20 14:32 Metoclopramide Hcl 10 Mg/2 Ml Vial IVP Not Given Q8HR BEATRICE Mometasone Furoate/Formoterol Fumar 2 puff 12/06/20 18:30 12/20/20 07:26 Mometasone 200 Mcg/Formoterol 5 Mcg 120 Puff Inhaler INH 2 puff BID-RT BEATRICE Administration Pantoprazole Sodium 40 mg 12/14/20 21:00 12/20/20 08:29 Pantoprazole 40 Mg Vial IVP 40 mg BID BEATRICE Administration Propofol 1,000 mg 12/10/20 11:45 12/20/20 14:49 Propofol 1,000 Mg/100 Ml Vial IV 01/09/21 11:45 1,000 mg INF PRN Administration TO ACHIEVE GOAL RASS Protocol Risperidone 0.5 mg 12/15/20 21:00 12/20/20 08:30 Risperidone 0.25 Mg Tab PO 0.5 mg BID BEATRICE Administration Sodium Chloride 10 ml 12/10/20 21:00 12/20/20 08:42 Flush - Normal Saline 10 Ml Syringe IVF 10 ml Q12HR BEATRICE Administration Zinc Sulfate 220 mg 12/06/20 09:00 12/20/20 08:30 Zinc Sulfate 220 Mg Cap PO 220 mg DAILY BEATRICE Administration - Exam General Appearance: NAD, awake alert Eye: PERRL, anicteric sclera ENT: normocephalic atraumatic, no oropharyngeal lesions Neck: no JVD Heart: RRR, no murmur, no gallops, no rubs Respiratory: CTAB, no wheezes, no rales, no ronchi Gastrointestinal: soft, non-tender, non-distended, normal bowel sounds Extremities: no cyanosis, no clubbing, 1+ LE edema (in arms) Hosp A/P - Plan Chest X ray 12/17: extensive airspace opacities. This is a 65 year old male with no known past medical history presenting with shortness of breath, altered mental stauts and COVID. Chest X ray showed bibasilar infiltrate Acute hypoxic respiratory failure secondary to COVID pneumonia - still intubated. He is currently on precedex. Blood culture shows 1/2 coag negative staph. Repeat blood cultures show 1/2 coag negative staph . Respiratory culture unremarkable. ID has recommended no need for antibiotics. Pulmonary has started on linezolid since WBC is up to 23. Continue meropenem day 5/7 Hypertension- controlled - not on any medicines SAVANNAH -resolved Acute GI bleed - continue protonix drip. S/p endoscopy showing ulcers History of COPD - continue dulera and steroids
[2020-12-20] MEDS ORDERED: Budesonide 0.5 MG/2 ML NEB INH SCH (18:30)
[2020-12-20] MEDS: Mometasone 100 MCG/PUFF (1 INHALER) INH SCH (18:57)
[2020-12-20] MEDS ORDERED: Guaifenesin DM 100-10/5 ML UDCUP PO PRN (20:49)
[2020-12-21] MEDS: Propofol 1,000 MG/100 ML VIAL IV PRN ×4 (01:24→18:28)
[2020-12-21] MEDS ORDERED: Clopidogrel Bisulfate 75 MG TAB ONE (04:46)
[2020-12-21] MEDS: Acetaminophen 325 MG TAB PER TUBE PRN (04:49)
[2020-12-21 05:20] LABS: Band 4 % (5-11); Eosinophils 1 % (0-10); Hemoglobin 8.3 g/dL (14.0-18.0); Lymphocytes 10 % (21-51); MDiff Complete? YES; Mean Corpuscular HGB CONC 32.3 g/dL (32.0-36.0); Mean Corpuscular Hemoglobin 30.5 pg (27.0-31.0); Mean Corpuscular Volume 94.7 fL (78.0-98.0); Mean Platelet Volume 7.7 fL (7.4-10.4); Metamyelocyte 2 % (0-0); Monocytes 3 % (0-10); Myelocyte 3 % (0-0); Neutrophil 77 % (42-75); Platelet Count 180 thou/uL (130-400); RBC Distribution Width 15.1 % (11.5-14.5); White Blood Cell (WBC) Count 20.2 thou/uL (4.8-10.8)
[2020-12-21 05:47] LABS: Anion Gap 11 mmol/L (10-20); BUN (Urea Nitrogen) 33 mg/dL (8.4-25.7); Calc. Creatinine Clearance 124 mL/min (70-130); Calcium 7.8 mg/dL (7.8-10.44); Carbon Dioxide 30 mmol/L (23-31); Chloride 107 mmol/L (98-107); Glucose 109 mg/dL (80-115); Potassium 3.7 mmol/L (3.5-5.1); Sodium 144 mmol/L (136-145)
[2020-12-21] MEDS: MEROPENEM 1 GM/50 ML 1 GM in Premix Bag 1 BAG IVPB SCH ×3 (07:01→21:08)
[2020-12-21] MEDS: Metoclopramide HCl 10 MG/2 ML VIAL IVP SCH ×4 (07:22→21:08)
[2020-12-21] MEDS: Docusate Sodium 100 MG/10 ML UDCUP PER TUBE SCH ×2 (07:29→20:41)
[2020-12-21] MEDS: Pantoprazole 40 MG VIAL IVP SCH ×2 (07:29→20:42)
[2020-12-21] MEDS: guaiFENesin ER 600 MG TAB PO SCH ×2 (07:29→20:41)
[2020-12-21] MEDS: Dexamethasone 4 mg/ml Vial SLOW IVP SCH (07:29)
[2020-12-21] MEDS: Zinc Sulfate 220 MG CAP PO SCH (07:29)
[2020-12-21] MEDS: Linezolid 600 MG TAB PO SCH ×2 (07:30→20:41)
[2020-12-21] MEDS: risperiDONE 0.25 MG TAB PO SCH ×2 (07:30→20:41)
[2020-12-21] MEDS: Mometasone 200 MCG/Formoterol 5 MCG 120 PUFF INHALER INH SCH ×2 (07:40→19:27)
[2020-12-21] MEDS: Mometasone 100 MCG/PUFF (1 INHALER) INH SCH ×2 (07:41→19:33)
--- NOTE | 2020-12-21 07:55 | RAD ---
Exam: Chest one view HISTORY:Respiratory distress. Intubated patient. Comparison: 12/17/2020 FINDINGS: Lines and tubes: Redemonstration of endotracheal and nasogastric tube. Cardiac silhouette: Normal Aorta: Unremarkable Pulmonary vessels: Normal Costophrenic angles: Clear LUNGS: Stable multi lobar pneumonia Pneumothorax: None Osseous abnormalities: None IMPRESSION: Stable multi lobar pneumonia.
--- NOTE | 2020-12-21 09:54 | PRG ---
DATE OF SERVICE: 12/21/2020 SUBJECTIVE: Amador Ramos is doing well. This morning, he is awake, alert, responsive, though very agitated when his sedation is withheld. OBJECTIVE: VITAL SIGNS: Temperature 98, blood pressure 98/70, pulse rate of , sats 100%, PEEP of 5, 30%. CHEST: Rhonchi, crackles. CARDIAC: Normal S1 and S2. No gallop. LABORATORY DATA: White count 20,000. X-ray shows improvement in the bilateral infiltrates. ASSESSMENT: Respiratory failure, gong positive pneumonia, possibly sepsis, Staphylococcus is covered with Zyvox and meropenem. No need to change his antibiotics. I have scheduled nebulizer treatments. We are going to continue aggressive PT, supportive care. Hopefully, we can avoid a trach on the gentleman if he becomes less encephalopathic. One-half hour of critical time. Job ID: [id number]
[2020-12-21] MEDS: Sodium Chloride 0.45% 1,000 ML IV SCH (10:35)
--- NOTE | 2020-12-21 16:19 | PDOC.EVN ---
Event Note - Event Note Event Note: F/u: COVID The patient is still intubated. He is sedated. Her FiO2 is 50%. He received 60 mg IV lasix today. Urine output is around 100. He is on 125 fentanyl and 30 propofol and tidal volumes are around 500. Multiple family members of the patient have General: intubated, sedated CV: regular rate Lungs: diminished per nursing Extremities; This is a 65 year old male w
--- NOTE | 2020-12-21 16:25 | PDOC.HOSPP ---
- Subjective Encounter Date: 12/21/20 Encounter Time: 06:00 Subjective: F/u : COVID The patient is intubated. His propofol is being weaned down because he got bradycardic. He is still on minimal vent settings - Objective Vital Signs & Weight: Vital Signs (12 hours) Temp Pulse Pulse Pulse Resp BP BP 12/21/20 15:20 66 88/70 L 12/21/20 15:16 66 16 12/21/20 12:45 98.8 F 12/21/20 11:50 72 73 96/60 12/21/20 10:43 78 93/62 12/21/20 07:44 98.8 F 12/21/20 07:42 91 126/78 12/21/20 07:37 24 H 12/21/20 06:00 25 H BP Pulse Ox 12/21/20 15:20 12/21/20 15:16 100 12/21/20 12:45 12/21/20 11:50 92/59 L 12/21/20 10:43 12/21/20 07:44 12/21/20 07:42 12/21/20 07:37 100 12/21/20 06:00 Weight Admit Weight 175 lb Weight 188 lb 7.924 oz Most Recent Monitor Data Heart Rate from ECG 71 NIBP 93/61 NIBP BP-Mean 71 Respiration from ECG 15 SpO2 100 I&O: 12/20/20 12/21/20 12/22/20 06:59 06:59 06:59 Intake Total 4494 3195 806 Output Total 3960 3810 670 Balance 534 -615 136 Result Diagrams: 12/21/20 03:46 12/21/20 03:46 Hospitalist ROS - Review of Systems ROS unobtainable: due to endotracheal tube - Medication Medications: Active Medications Generic Name Dose Route Start Last Admin Trade Name Freq PRN Reason Stop Dose Admin Acetaminophen 650 mg 12/14/20 08:13 12/21/20 04:49 Acetaminophen 325 Mg Tab PER TUBE 650 mg Q6H PRN Administration Headache/Fever or Pain Albuterol/Ipratropium 3 ml 12/21/20 13:00 12/21/20 15:16 Ipratropium/Albuterol Sulfate 3 Ml Neb NEB 3 ml [id number] BEATRICE Administration Dexamethasone 6 mg 12/14/20 09:00 12/21/20 07:29 Dexamethasone 4 Mg/Ml Vial SLOW IVP 6 mg DAILY BEATRICE Administration Docusate Sodium 100 mg 12/14/20 21:00 12/21/20 07:29 Docusate Sodium 100 Mg/10 Ml Udcup PER TUBE 100 mg BID BEATRICE Administration Guaifenesin 1,200 mg 12/06/20 09:00 12/21/20 07:29 Guaifenesin Er 600 Mg Tab PO 1,200 mg Q12HR BEATRICE Administration Guaifenesin/Dextromethorphan 15 ml 12/20/20 20:49 12/20/20 22:45 Guaifenesin Dm 100-10/5 Ml Udcup PO 15 ml Q4H PRN Administration Cough Fentanyl 100 mls @ 0 mls/hr 12/15/20 12:15 12/18/20 23:31 Fentanyl Cadd IV 01/14/21 12:15 100 mls INF BEATRICE Administration Protocol Per Protocol Meropenem 1 gm/ Device 50 mls @ 100 mls/hr 12/15/20 22:00 12/21/20 12:16 IVPB 50 mls Q8HR BEATRICE Administration Sodium Chloride 1,000 mls @ 50 mls/hr 12/16/20 09:30 12/21/20 10:35 1/2 Normal Saline IV 1,000 mls .Q20H BEATRICE Administration Dexmedetomidine HCl 400 mcg/ 100 mls @ 0 mls/hr 12/17/20 13:30 12/21/20 11:50 Sodium Chloride IVPB 100 mls INF BEATRICE Administration Protocol Titrate Linezolid 600 mg 12/19/20 21:00 12/21/20 07:30 Linezolid 600 Mg Tab PO 12/29/20 21:01 600 mg Q12HR BEATRICE Administration Metoclopramide HCl 10 mg 12/15/20 14:00 12/21/20 12:16 Metoclopramide Hcl 10 Mg/2 Ml Vial IVP 10 mg Q8HR BEATRICE Administration Mometasone Furoate 200 mcg 12/20/20 18:30 12/21/20 07:41 Mometasone 100 Mcg/Puff (1 Inhaler) INH Not Given BID-RT BEATRICE Mometasone Furoate/Formoterol Fumar 2 puff 12/06/20 18:30 12/21/20 07:40 Mometasone 200 Mcg/Formoterol 5 Mcg 120 Puff Inhaler INH 2 puff BID-RT BEATRICE Administration Pantoprazole Sodium 40 mg 12/14/20 21:00 12/21/20 07:29 Pantoprazole 40 Mg Vial IVP 40 mg BID BEATRICE Administration Propofol 1,000 mg 12/10/20 11:45 12/21/20 14:49 Propofol 1,000 Mg/100 Ml Vial IV 01/09/21 11:45 1,000 mg INF PRN Administration TO ACHIEVE GOAL RASS Protocol Risperidone 0.5 mg 12/15/20 21:00 12/21/20 07:30 Risperidone 0.25 Mg Tab PO 0.5 mg BID BEATRICE Administration Sodium Chloride 10 ml 12/10/20 21:00 12/21/20 07:30 Flush - Normal Saline 10 Ml Syringe IVF 10 ml Q12HR BEATRICE Administration Zinc Sulfate 220 mg 12/06/20 09:00 12/21/20 07:29 Zinc Sulfate 220 Mg Cap PO 220 mg DAILY BEATRICE Administration - Exam General - other findings: intubated Eye: PERRL, anicteric sclera ENT: normocephalic atraumatic, no oropharyngeal lesions Neck: no JVD Heart: RRR, no murmur, no gallops, no rubs Respiratory: CTAB, no wheezes, no rales, no ronchi Gastrointestinal: soft, non-tender, non-distended, normal bowel sounds Gastrointestinal - other findings: keenan catheter with burnt orange output Extremities: no cyanosis, no clubbing, 1+ LE edema Hosp A/P - Plan Chest X ray 12/17: extensive airspace opacities. This is a 65 year old male with no known past medical history presenting with shortness of breath, altered mental stauts and COVID. Chest X ray showed bibasilar infiltrate Acute hypoxic respiratory failure secondary to COVID pneumonia - still intubated. He is currently on precedex. Blood culture shows 1/2 coag negative staph. Repeat blood cultures show 1/2 coag negative staph . Respiratory culture unremarkable. -ID has recommended no need for antibiotics. Pulmonary has started on linezolid on 12/19. WBC is now down to 20. . Continue meropenem day 6/ Hypertension- controlled - not on any medicines SAVANNAH -resolved Acute GI bleed - continue protonix drip. S/p endoscopy showing ulcers History of COPD - continue dulera and steroids
[2020-12-22 04:33] LABS: Anion Gap 13 mmol/L (10-20); BUN (Urea Nitrogen) 34 mg/dL (8.4-25.7); Calc. Creatinine Clearance 133 mL/min (70-130); Calcium 7.8 mg/dL (7.8-10.44); Carbon Dioxide 26 mmol/L (23-31); Chloride 106 mmol/L (98-107); Glucose 118 mg/dL (80-115); Potassium 4.1 mmol/L (3.5-5.1); Sodium 141 mmol/L (136-145)
[2020-12-22] MEDS: MEROPENEM 1 GM/50 ML 1 GM in Premix Bag 1 BAG IVPB SCH ×3 (05:03→21:09)
[2020-12-22] MEDS: Metoclopramide HCl 10 MG/2 ML VIAL IVP SCH ×3 (05:04→21:09)
[2020-12-22 05:05] LABS: Band 9 % (5-11); Eosinophils 2 % (0-10); Hemoglobin 8.1 g/dL (14.0-18.0); Lymphocytes 12 % (21-51); MDiff Complete? YES; Mean Corpuscular Hemoglobin 31.1 pg (27.0-31.0); Mean Corpuscular Volume 94.5 fL (78.0-98.0); Mean Platelet Volume 8.2 fL (7.4-10.4); Monocytes 4 % (0-10); Myelocyte 3 % (0-0); Neutrophil 70 % (42-75); Platelet Count 177 thou/uL (130-400); RBC Distribution Width 14.7 % (11.5-14.5); Red Blood Cell (RBC) Count 2.59 mill/uL (4.70-6.10); White Blood Cell (WBC) Count 18.3 thou/uL (4.8-10.8)
[2020-12-22] MEDS: Sodium Chloride 0.45% 1,000 ML IV SCH (05:09)
[2020-12-22] MEDS: Mometasone 200 MCG/Formoterol 5 MCG 120 PUFF INHALER INH SCH ×2 (06:39→18:32)
[2020-12-22] MEDS: Mometasone 100 MCG/PUFF (1 INHALER) INH SCH ×2 (06:39→18:38)
[2020-12-22] MEDS: Docusate Sodium 100 MG/10 ML UDCUP PER TUBE SCH ×2 (07:24→20:52)
[2020-12-22] MEDS: Zinc Sulfate 220 MG CAP PO SCH (07:28)
[2020-12-22] MEDS: Linezolid 600 MG TAB PO SCH ×2 (07:28→20:53)
[2020-12-22] MEDS: Dexamethasone 4 mg/ml Vial SLOW IVP SCH (07:28)
[2020-12-22] MEDS: Pantoprazole 40 MG VIAL IVP SCH ×2 (07:28→20:53)
[2020-12-22] MEDS: guaiFENesin ER 600 MG TAB PO SCH ×2 (07:29→20:52)
[2020-12-22] MEDS: risperiDONE 0.25 MG TAB PO SCH ×2 (07:29→20:53)
--- NOTE | 2020-12-22 09:47 | PRG ---
DATE OF SERVICE: 12/22/2020 SUBJECTIVE: Amador Ramos is a 65-year-old gentleman who remains very encephalopathic, still requiring Diprivan, Precedex, and risperidone. OBJECTIVE: VITAL SIGNS: Saturations at 100%, rate of 6 and 30%, blood pressure 90/66. CHEST: No wheezing. No crackles. CARDIAC: Normal S1 and S2. LABORATORY DATA: Unremarkable. White count 18,000. He has a blood culture that shows probably contamination. X-ray still shows bilateral infiltrates. ASSESSMENT: 1. Respiratory failure. 2. Delgado positive pneumonia. PLAN: He is on broad-spectrum antibiotics for several days for his leukocytosis. He is still getting supportive care and nutrition. We will follow up. TIME SPENT: One-half hour of critical care time. Job ID: [id number]
--- NOTE | 2020-12-22 14:27 | PDOC.HOSPP ---
- Subjective Encounter Date: 12/22/20 Encounter Time: 11:00 Subjective: F/u: intubated The patient is still intubated on minimal vent settings. Propofol is being weaned and the patient is still on precedex . Blood culture growing 2/2 staph epidermidis - Objective Vital Signs & Weight: Vital Signs (12 hours) Temp Pulse Resp BP Pulse Ox 12/22/20 14:00 98 F 12/22/20 10:35 92 174/78 H 12/22/20 07:17 27 H 99 12/22/20 07:00 98.8 F 12/22/20 06:33 99 112/71 12/22/20 06:32 88 24 H 99 12/22/20 06:00 29 H 12/22/20 04:00 99.1 F 23 H 12/22/20 02:41 109 H Weight Admit Weight 175 lb Weight 188 lb 7.924 oz Most Recent Monitor Data Heart Rate from ECG 69 NIBP 86/59 NIBP BP-Mean 68 Respiration from ECG 21 SpO2 100 I&O: 12/21/20 12/22/20 12/23/20 06:59 06:59 06:59 Intake Total 3195 3458.8 Output Total 3810 2210 540 Balance -615 1248.8 -540 Result Diagrams: 12/22/20 03:37 12/22/20 03:37 Hospitalist ROS - Review of Systems ROS unobtainable: due to endotracheal tube - Medication Medications: Active Medications Generic Name Dose Route Start Last Admin Trade Name Freq PRN Reason Stop Dose Admin Acetaminophen 650 mg 12/14/20 08:13 12/21/20 04:49 Acetaminophen 325 Mg Tab PER TUBE 650 mg Q6H PRN Administration Headache/Fever or Pain Albuterol/Ipratropium 3 ml 12/21/20 13:00 12/22/20 06:32 Ipratropium/Albuterol Sulfate 3 Ml Neb NEB 3 ml [id number] BEATRICE Administration Dexamethasone 6 mg 12/14/20 09:00 12/22/20 07:28 Dexamethasone 4 Mg/Ml Vial SLOW IVP 6 mg DAILY BEATRICE Administration Docusate Sodium 100 mg 12/14/20 21:00 12/22/20 07:24 Docusate Sodium 100 Mg/10 Ml Udcup PER TUBE Not Given BID BEATRICE Guaifenesin 1,200 mg 12/06/20 09:00 12/22/20 07:29 Guaifenesin Er 600 Mg Tab PO 1,200 mg Q12HR BEATRICE Administration Guaifenesin/Dextromethorphan 15 ml 12/20/20 20:49 12/20/20 22:45 Guaifenesin Dm 100-10/5 Ml Udcup PO 15 ml Q4H PRN Administration Cough Fentanyl 100 mls @ 0 mls/hr 12/15/20 12:15 12/18/20 23:31 Fentanyl Cadd IV 01/14/21 12:15 100 mls INF BEATRICE Administration Protocol Per Protocol Meropenem 1 gm/ Device 50 mls @ 100 mls/hr 12/15/20 22:00 12/22/20 12:26 IVPB 50 mls Q8HR BEATRICE Administration Sodium Chloride 1,000 mls @ 50 mls/hr 12/16/20 09:30 12/22/20 05:09 1/2 Normal Saline IV 1,000 mls .Q20H BEATRICE Administration Dexmedetomidine HCl 400 mcg/ 100 mls @ 0 mls/hr 12/17/20 13:30 12/22/20 05:06 Sodium Chloride IVPB 100 mls INF BEATRICE Administration Protocol Titrate Linezolid 600 mg 12/19/20 21:00 12/22/20 07:28 Linezolid 600 Mg Tab PO 12/29/20 21:01 600 mg Q12HR BEATRICE Administration Metoclopramide HCl 10 mg 12/15/20 14:00 12/22/20 12:26 Metoclopramide Hcl 10 Mg/2 Ml Vial IVP Not Given Q8HR BEATRICE Mometasone Furoate 200 mcg 12/20/20 18:30 12/22/20 06:39 Mometasone 100 Mcg/Puff (1 Inhaler) INH Not Given BID-RT BEATRICE Mometasone Furoate/Formoterol Fumar 2 puff 12/06/20 18:30 12/22/20 06:39 Mometasone 200 Mcg/Formoterol 5 Mcg 120 Puff Inhaler INH 2 puff BID-RT BEATRICE Administration Pantoprazole Sodium 40 mg 12/14/20 21:00 12/22/20 07:28 Pantoprazole 40 Mg Vial IVP 40 mg BID BEATRICE Administration Propofol 1,000 mg 12/10/20 11:45 12/21/20 18:28 Propofol 1,000 Mg/100 Ml Vial IV 01/09/21 11:45 1,000 mg INF PRN Administration TO ACHIEVE GOAL RASS Protocol Risperidone 0.5 mg 12/15/20 21:00 12/22/20 07:29 Risperidone 0.25 Mg Tab PO 0.5 mg BID BEATRICE Administration Sodium Chloride 10 ml 12/10/20 21:00 12/22/20 07:29 Flush - Normal Saline 10 Ml Syringe IVF 10 ml Q12HR BEATRICE Administration Zinc Sulfate 220 mg 12/06/20 09:00 12/22/20 07:28 Zinc Sulfate 220 Mg Cap PO 220 mg DAILY BEATRICE Administration - Exam General - other findings: intubated Eye: PERRL, anicteric sclera ENT: normocephalic atraumatic, no oropharyngeal lesions Neck: no JVD Heart: RRR, no murmur, no gallops, no rubs Respiratory: CTAB, no wheezes, no rales, no ronchi Gastrointestinal: soft, non-tender, non-distended, normal bowel sounds Gastrointestinal - other findings: keenan catheter in place Extremities: no cyanosis, no clubbing, 1+ LE edema Hosp A/P - Plan Chest X ray 12/17: extensive airspace opacities. This is a 65 year old male with no known past medical history presenting with shortness of breath, altered mental stauts and COVID. Chest X ray showed bibas ilar infiltrate Acute hypoxic respiratory failure secondary to COVID pneumonia Staph epidermidis bacteremia - still intubated. He is currently on precedex. Blood culture shows 1/2 coag negative staph. Repeat blood cultures show 2/2 staph epidermidis Respiratory culture unremarkable. -ID has recommended no need for antibiotics. Pulmonary has started on linezolid on 12/19. WBC is still trending down. Continue meropenem day 06/07 Hypertension- controlled - not on any medicines SAVANNAH -resolved Acute GI bleed - continue protonix drip. S/p endoscopy showing ulcers History of COPD - continue dulera and steroids
[2020-12-22] MEDS: Scopolamine 1.5 mg/72 hour Patch TOP SCH (15:42)
[2020-12-23] MEDS: Sodium Chloride 0.45% 1,000 ML IV SCH ×2 (03:13→20:37)
[2020-12-23 04:22] LABS: Anion Gap 12 mmol/L (10-20); BUN (Urea Nitrogen) 34 mg/dL (8.4-25.7); Calc. Creatinine Clearance 134 mL/min (70-130); Calcium 7.8 mg/dL (7.8-10.44); Carbon Dioxide 27 mmol/L (23-31); Chloride 105 mmol/L (98-107); Glucose 103 mg/dL (80-115); Potassium 3.8 mmol/L (3.5-5.1); Sodium 140 mmol/L (136-145)
[2020-12-23 04:44] LABS: Band 3 % (5-11); Eosinophils 2 % (0-10); Hemoglobin 7.8 g/dL (14.0-18.0); Hypochromia SLIGHT = 6-15 cells (100X) (0-5/hpf); Lymphocytes 24 % (21-51); MDiff Complete? YES; Mean Corpuscular HGB CONC 32.1 g/dL (32.0-36.0); Mean Corpuscular Hemoglobin 30.6 pg (27.0-31.0); Mean Corpuscular Volume 95.5 fL (78.0-98.0); Metamyelocyte 1 % (0-0); Monocytes 3 % (0-10); Neutrophil 67 % (42-75); Platelet Count 174 thou/uL (130-400); Platelet Morphology Comment Appears Adequate; RBC Distribution Width 14.7 % (11.5-14.5); Red Blood Cell (RBC) Count 2.53 mill/uL (4.70-6.10); White Blood Cell (WBC) Count 11.9 thou/uL (4.8-10.8)
[2020-12-23] MEDS: MEROPENEM 1 GM/50 ML 1 GM in Premix Bag 1 BAG IVPB SCH (05:10)
[2020-12-23] MEDS: Acetaminophen 325 MG TAB PER TUBE PRN (05:10)
[2020-12-23] MEDS: Metoclopramide HCl 10 MG/2 ML VIAL IVP SCH ×3 (07:04→22:50)
[2020-12-23] MEDS: Mometasone 100 MCG/PUFF (1 INHALER) INH SCH ×2 (07:47→19:29)
[2020-12-23] MEDS: Mometasone 200 MCG/Formoterol 5 MCG 120 PUFF INHALER INH SCH ×2 (07:47→19:28)
[2020-12-23] MEDS: Zinc Sulfate 220 MG CAP PO SCH (08:28)
[2020-12-23] MEDS: Dexamethasone 4 mg/ml Vial SLOW IVP SCH (08:28)
[2020-12-23] MEDS: Pantoprazole 40 MG VIAL IVP SCH ×2 (08:29→20:36)
[2020-12-23] MEDS: Docusate Sodium 100 MG/10 ML UDCUP PER TUBE SCH ×3 (08:29→20:37)
[2020-12-23] MEDS: risperiDONE 0.25 MG TAB PO SCH ×2 (08:36→20:37)
[2020-12-23] MEDS: Linezolid 600 MG TAB PO SCH ×2 (09:26→20:37)
[2020-12-23] MEDS: guaiFENesin ER 600 MG TAB PO SCH (09:27)
--- NOTE | 2020-12-23 10:02 | PRG ---
DATE OF SERVICE: 12/23/2020 SUBJECTIVE: Amador Ramos is a 65-year-old gentleman, remains intubated in the vent. Today for the first time, he is appropriate and responsive. OBJECTIVE: VITAL SIGNS: Temperature 99, pulse 80, respirations 18, saturations 99%. CHEST: No wheezing, no crackles. CARDIAC: Normal S1. ABDOMEN: No masses. Staph epi on blood cultures, probably a contamination leukocytosis. ASSESSMENT: Delgado positive pneumonia; respiratory failure, slowly improving; encephalopathy improved today. Try minimize sedation. Continue antibiotics. Hopefully, we can get him off the vent in the next several days, avoid a trach. One-half hour of critical care time. Job ID: [id number]
--- NOTE | 2020-12-23 13:32 | PDOC.HOSPP ---
- Subjective Encounter Date: 12/23/20 Encounter Time: 09:00 Subjective: F/u : intubated THe patient was placed on CPAP this morning and had a lot of agitation and pain so was placed on sedation per nurse. He is still on minimal vent settings. He is more awake and is following commands - Objective Vital Signs & Weight: Vital Signs (12 hours) Temp Pulse Resp BP Pulse Ox 12/23/20 12:00 99.1 F 20 12/23/20 11:25 99 107/68 12/23/20 10:00 33 H 12/23/20 08:00 99.2 F 25 H 96 12/23/20 07:43 96 12/23/20 07:37 91 90/61 12/23/20 06:00 22 H 12/23/20 04:00 97.9 F 23 H 12/23/20 02:07 83 12/23/20 02:06 85 21 H 100 12/23/20 02:00 21 H Weight Admit Weight 175 lb Weight 188 lb 7.924 oz Most Recent Monitor Data Heart Rate from ECG 74 NIBP 90/54 NIBP BP-Mean 66 Respiration from ECG 21 SpO2 100 I&O: 12/22/20 12/23/20 12/24/20 06:59 06:59 06:59 Intake Total 3458.8 2595 200 Output Total 2210 1880 925 Balance 1248.8 715 -725 Result Diagrams: 12/23/20 03:43 12/23/20 03:43 Hospitalist ROS - Review of Systems ROS unobtainable: due to endotracheal tube - Medication Medications: Active Medications Generic Name Dose Route Start Last Admin Trade Name Amilcar PRN Reason Stop Dose Admin Acetaminophen 650 mg 12/14/20 08:13 12/23/20 05:10 Acetaminophen 325 Mg Tab PER TUBE 650 mg Q6H PRN Administration Headache/Fever or Pain Albuterol/Ipratropium 3 ml 12/21/20 13:00 12/23/20 13:28 Ipratropium/Albuterol Sulfate 3 Ml Neb NEB 3 ml [id number] BEATRICE Administration Dexamethasone 6 mg 12/14/20 09:00 12/23/20 08:28 Dexamethasone 4 Mg/Ml Vial SLOW IVP 6 mg DAILY BEATRICE Administration Docusate Sodium 100 mg 12/14/20 21:00 12/23/20 08:36 Docusate Sodium 100 Mg/10 Ml Udcup PER TUBE Not Given BID BEATRICE Guaifenesin/Dextromethorphan 15 ml 12/20/20 20:49 12/20/20 22:45 Guaifenesin Dm 100-10/5 Ml Udcup PO 15 ml Q4H PRN Administration Cough Fentanyl 100 mls @ 0 mls/hr 12/15/20 12:15 12/18/20 23:31 Fentanyl Cadd IV 01/14/21 12:15 100 mls INF BEATRIEC Administration Protocol Per Protocol Meropenem 1 gm/ Device 50 mls @ 100 mls/hr 12/15/20 22:00 12/23/20 05:10 IVPB 50 mls Q8HR BEATRICE Administration Sodium Chloride 1,000 mls @ 50 mls/hr 12/16/20 09:30 12/23/20 03:13 1/2 Normal Saline IV 1,000 mls .Q20H BEATRICE Administration Dexmedetomidine HCl 400 mcg/ 100 mls @ 0 mls/hr 12/17/20 13:30 12/22/20 16:48 Sodium Chloride IVPB 100 mls INF BEATRICE Administration Protocol Titrate Linezolid 600 mg 12/19/20 21:00 12/23/20 09:26 Linezolid 600 Mg Tab PO 12/29/20 21:01 600 mg Q12HR BEATRICE Administration Metoclopramide HCl 10 mg 12/15/20 14:00 12/23/20 07:04 Metoclopramide Hcl 10 Mg/2 Ml Vial IVP Not Given Q8HR BEATRICE Mometasone Furoate 200 mcg 12/20/20 18:30 12/23/20 07:47 Mometasone 100 Mcg/Puff (1 Inhaler) INH Not Given BID-RT BEATRICE Mometasone Furoate/Formoterol Fumar 2 puff 12/06/20 18:30 12/23/20 07:47 Mometasone 200 Mcg/Formoterol 5 Mcg 120 Puff Inhaler INH 2 puff BID-RT BEATRICE Administration Pantoprazole Sodium 40 mg 12/14/20 21:00 12/23/20 08:29 Pantoprazole 40 Mg Vial IVP 40 mg BID BEATRICE Administration Propofol 1,000 mg 12/10/20 11:45 12/21/20 18:28 Propofol 1,000 Mg/100 Ml Vial IV 02/08/21 11:45 1,000 mg INF PRN Administration TO ACHIEVE GOAL RASS Protocol Risperidone 0.5 mg 12/15/20 21:00 12/23/20 08:36 Risperidone 0.25 Mg Tab PO 0.5 mg BID BEATRICE Administration Scopolamine 1.5 mg 12/22/20 15:00 12/22/20 15:42 Scopolamine 1.5 Mg/72 Hour Patch TOP 1.5 mg Q3D BEATRICE Administration Sodium Chloride 10 ml 12/10/20 21:00 12/23/20 08:37 Flush - Normal Saline 10 Ml Syringe IVF 10 ml Q12HR BEATRICE Administration Zinc Sulfate 220 mg 12/06/20 09:00 12/23/20 08:28 Zinc Sulfate 220 Mg Cap PO 220 mg DAILY BEATRICE Administration - Exam General - other findings: intubated Eye: PERRL, anicteric sclera ENT: normocephalic atraumatic, no oropharyngeal lesions Neck: no JVD Heart: RRR, no murmur, no gallops, no rubs Respiratory: CTAB, no wheezes, no rales, no ronchi Gastrointestinal: soft, non-tender, non-distended, normal bowel sounds Extremities: no edema Skin: normal turgor, no lesions, no rashes Neurological - other findings: moves hands and legs to command Hosp A/P - Plan Chest X ray 12/17: extensive airspace opacities. This is a 65 year old male with no known past medical history presenting with shortness of breath, altered mental stauts and COVID. Chest X ray showed bibasilar infiltrate #Acute hypoxic respiratory failure secondary to COVID pneumonia #Staph epidermidis bacteremia - still intubated. He is currently on precedex. Blood culture shows 1/2 coag negative staph. Repeat blood cultures show 2/2 staph epidermidis. Respiratory culture unremarkable. -ID has recommended no need for antibiotics. Pulmonary has started on linezolid on 12/19. WBC is down to 11. Patient is s/p meropenem for 7 days, will discontinue Anemia - Hb 7.8, will continue to monitor for need for transfusion - check B12/folate/TSH Hypertension- controlled - not on any medicines SAVANNAH -resolved Acute GI bleed - patient had coffee ground material in NG tube on 12/15. He is s/p endoscopy showing ulcers. Continue protonix 40 mg IV Bid. 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
[2020-12-23] MEDS: Propofol 1,000 MG/100 ML VIAL IV PRN (14:59)
[2020-12-24 04:08] LABS: #Basophils 0.1 thou/uL (0.0-0.2); #Eosinphils 0.5 thou/uL (0.0-0.7); #Lymphocytes 2.2 thou/uL (1.20-3.40); #Monocytes 0.6 thou/uL (0.11-0.59); #Neutrophils 7.7 thou/uL (1.40-6.50); %Basophils 0.5 % (0.0-1.0); %Eosinophils 4.7 % (0.0-10.0); %Lymphocytes 19.9 % (21.0-51.0); %Monocytes 5.4 % (0.0-10.0); %Neutrophils 69.6 % (42.0-75.0); Hemoglobin 7.1 g/dL (14.0-18.0); Mean Corpuscular HGB CONC 32.5 g/dL (32.0-36.0); Mean Corpuscular Volume 95.2 fL (78.0-98.0); Mean Platelet Volume 7.7 fL (7.4-10.4); Platelet Count 220 thou/uL (130-400); RBC Distribution Width 14.7 % (11.5-14.5); White Blood Cell (WBC) Count 11.1 thou/uL (4.8-10.8)
[2020-12-24 04:28] LABS: Anion Gap 11 mmol/L (10-20); BUN (Urea Nitrogen) 31 mg/dL (8.4-25.7); Calc. Creatinine Clearance 145 mL/min (70-130); Calcium 7.9 mg/dL (7.8-10.44); Carbon Dioxide 29 mmol/L (23-31); Chloride 105 mmol/L (98-107); Glucose 106 mg/dL (80-115); Potassium 3.6 mmol/L (3.5-5.1); Sodium 141 mmol/L (136-145)
[2020-12-24 04:52] LABS: Thyroid Stimulating Hormone 2.5064 uIU/mL (0.35-4.94)
[2020-12-24] MEDS: Metoclopramide HCl 10 MG/2 ML VIAL IVP SCH ×3 (07:24→21:47)
[2020-12-24] MEDS: Mometasone 200 MCG/Formoterol 5 MCG 120 PUFF INHALER INH SCH ×2 (07:36→19:16)
[2020-12-24] MEDS: Mometasone 100 MCG/PUFF (1 INHALER) INH SCH ×2 (07:37→19:17)
[2020-12-24] MEDS: Linezolid 600 MG TAB PO SCH ×2 (08:26→20:24)
[2020-12-24] MEDS: risperiDONE 0.25 MG TAB PO SCH ×2 (08:26→20:24)
[2020-12-24] MEDS: Zinc Sulfate 220 MG CAP PO SCH (08:26)
[2020-12-24] MEDS: Dexamethasone 4 mg/ml Vial SLOW IVP SCH (08:26)
[2020-12-24] MEDS: Docusate Sodium 100 MG/10 ML UDCUP PER TUBE SCH ×2 (08:28→20:25)
[2020-12-24] MEDS: Pantoprazole 40 MG VIAL IVP SCH ×2 (08:28→20:25)
--- NOTE | 2020-12-24 08:28 | RAD ---
Frontal radiograph chest: 12/24/2020 COMPARISON: 12/21/2020 HISTORY: Ventilated patient FINDINGS: Stable endotracheal tube and nasogastric tube. There are coarse linear interstitial densiti es with superimposed multi focal consolidation within the lateral right upper lobe, the right perihilar region and right lung base, the medial left base, and the mid left lung zone/left perihilar region. IMPRESSION: Stable multifocal consolidation. Stable lines and tubes. No interval change.
--- NOTE | 2020-12-24 14:18 | PDOC.HOSPP ---
- Subjective Encounter Date: 12/24/20 Encounter Time: 10:50 Subjective: Patient is awake and is following commands. CPAP trial today. He is on tube feed currently. Discussed with RN. - Objective Vital Signs & Weight: Vital Signs (12 hours) Temp Pulse Pulse Resp BP BP BP 12/24/20 12:00 26 H 12/24/20 11:18 91 88/60 L 12/24/20 10:23 96 117/77 120/68 12/24/20 10:00 22 H 12/24/20 08:10 12/24/20 08:00 98.0 F 18 12/24/20 07:38 73 91/54 L 12/24/20 06:00 20 12/24/20 04:00 98.0 F 22 H 12/24/20 02:38 76 20 12/24/20 02:26 70 Pulse Ox Pulse Ox 12/24/20 12:00 12/24/20 11:18 12/24/20 10:23 94 L 12/24/20 10:00 12/24/20 08:10 98 12/24/20 08:00 12/24/20 07:38 12/24/20 06:00 12/24/20 04:00 12/24/20 02:38 100 12/24/20 02:26 Weight Admit Weight 175 lb Weight 188 lb 7.924 oz Most Recent Monitor Data Heart Rate from ECG 96 NIBP 120/73 NIBP BP-Mean 88 Respiration from ECG 26 SpO2 100 I&O: 12/23/20 12/24/20 12/25/20 06:59 06:59 06:59 Intake Total 2595 2943.5 180 Output Total 1880 2505 762 Balance 715 438.5 -582 Result Diagrams: 12/24/20 03:36 12/24/20 03:36 Hospitalist ROS - Medication Medications: Active Medications Generic Name Dose Route Start Last Admin Trade Name Freq PRN Reason Stop Dose Admin Acetaminophen 650 mg 12/14/20 08:13 12/23/20 05:10 Acetaminophen 325 Mg Tab PER TUBE 650 mg Q6H PRN Administration Headache/Fever or Pain Albuterol/Ipratropium 3 ml 12/21/20 13:00 12/24/20 07:35 Ipratropium/Albuterol Sulfate 3 Ml Neb NEB 3 ml [id number] BEATRICE Administration Dexamethasone 6 mg 12/14/20 09:00 12/24/20 08:26 Dexamethasone 4 Mg/Ml Vial SLOW IVP 6 mg DAILY BEATRICE Administration Docusate Sodium 100 mg 12/14/20 21:00 12/24/20 08:28 Docusate Sodium 100 Mg/10 Ml Udcup PER TUBE Not Given BID BEATRICE Guaifenesin/Dextromethorphan 15 ml 12/20/20 20:49 12/20/20 22:45 Guaifenesin Dm 100-10/5 Ml Udcup PO 15 ml Q4H PRN Administration Cough Fentanyl 100 mls @ 0 mls/hr 12/15/20 12:15 12/18/20 23:31 Fentanyl Cadd IV 01/14/21 12:15 100 mls INF BEATRICE Administration Protocol Per Protocol Sodium Chloride 1,000 mls @ 50 mls/hr 12/16/20 09:30 12/23/20 20:37 1/2 Normal Saline IV 1,000 mls .Q20H BEATRICE Administration Dexmedetomidine HCl 400 mcg/ 100 mls @ 0 mls/hr 12/17/20 13:30 12/24/20 08:54 Sodium Chloride IVPB 100 mls INF BEATRICE Administration Protocol Titrate Linezolid 600 mg 12/19/20 21:00 12/24/20 08:26 Linezolid 600 Mg Tab PO 12/29/20 21:01 600 mg Q12HR BEATRICE Administration Metoclopramide HCl 10 mg 12/15/20 14:00 12/24/20 07:24 Metoclopramide Hcl 10 Mg/2 Ml Vial IVP Not Given Q8HR BEATRICE Mometasone Furoate 200 mcg 12/20/20 18:30 12/24/20 07:37 Mometasone 100 Mcg/Puff (1 Inhaler) INH 2 puff BID-RT BEATRICE Administration Mometasone Furoate/Formoterol Fumar 2 puff 12/06/20 18:30 12/24/20 07:36 Mometasone 200 Mcg/Formoterol 5 Mcg 120 Puff Inhaler INH 2 puff BID-RT BEATRICE Administration Pantoprazole Sodium 40 mg 12/14/20 21:00 12/24/20 08:28 Pantoprazole 40 Mg Vial IVP 40 mg BID BEATRICE Administration Propofol 1,000 mg 12/10/20 11:45 12/23/20 14:59 Propofol 1,000 Mg/100 Ml Vial IV 01/09/21 11:45 1,000 mg INF PRN Administration TO ACHIEVE GOAL RASS Protocol Risperidone 0.5 mg 12/15/20 21:00 12/24/20 08:26 Risperidone 0.25 Mg Tab PO 0.5 mg BID BEATRICE Administration Scopolamine 1.5 mg 12/22/20 15:00 12/22/20 15:42 Scopolamine 1.5 Mg/72 Hour Patch TOP 1.5 mg Q3D BEATRICE Administration Sodium Chloride 10 ml 12/10/20 21:00 12/24/20 08:28 Flush - Normal Saline 10 Ml Syringe IVF 10 ml Q12HR BEATRICE Administration Zinc Sulfate 220 mg 12/06/20 09:00 12/24/20 08:26 Zinc Sulfate 220 Mg Cap PO 220 mg DAILY BEATRICE Administration - Exam General Appearance: NAD, awake alert Eye: PERRL ENT: normocephalic atraumatic Neck: supple Heart: RRR, normal peripheral pulses Respiratory: CTAB, normal chest expansion Gastrointestinal: soft, normal bowel sounds Neurological: no focal deficits Psychiatric: oriented to person Hosp A/P - Plan 65 year old male with no known past medical history presenting with shortness of breath, altered mental stauts and COVID. Chest X ray showed bibasilar infiltrate #Acute hypoxic respiratory failure secondary to COVID pneumonia #Staph epidermidis bacteremia - still intubated. He is currently on precedex. Blood culture shows 1/2 coag negative staph. Repeat blood cultures show 2/2 staph epidermidis. Respiratory culture unremarkable. -ID has recommended no need for antibiotics. -Pulmonary has started on linezolid on 12/19. Patient is s/p meropenem for 7 days -WBC is down to 11. Anemia - Hb 7.8, will continue to monitor for need for transfusion - check B12/folate/TSH Hypertension- -not on meds currently SAVANNAH -resolved Acute GI bleed -coffee ground material in NG tube on 12/15. -He is s/p endoscopy showing ulcers. Continue protonix 40 mg IV Bid. 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
[2020-12-24] MEDS: Sodium Chloride 0.45% 1,000 ML IV SCH (16:33)
--- NOTE | 2020-12-24 17:45 | PRG ---
DATE OF SERVICE: 12/24/2020 SUBJECTIVE: Mr. Ramos is awake. He held out his hand. He was mechanically ventilated. He shook my hand when I walked into the room. OBJECTIVE: GENERAL: He is in no distress. VITAL SIGNS: Heart rate is 105, blood pressure 118/70, FiO2 is 30. . Negative inspiratory force is measured and the best he could do was negative 26. LUNGS: Remarkable for equal breath sounds. HEART: Regular rhythm. ABDOMEN: Soft. EXTREMITIES: Without edema. LABORATORY DATA: White count 11.1, hemoglobin 7.1, platelets 220. Electrolytes are normal. BUN 31, creatinine 0.6. IMPRESSION: Respiratory failure associated with COVID pneumonia. He appears to have substantially improved. It is unclear whether or not he has enough strength to extubate, so we will recheck his extubation parameters in the morning. Job ID: [id number]
[2020-12-25 03:57] LABS: #Eosinphils 0.3 thou/uL (0.0-0.7); #Lymphocytes 1.4 thou/uL (1.20-3.40); #Monocytes 0.5 thou/uL (0.11-0.59); #Neutrophils 12.7 thou/uL (1.40-6.50); %Basophils 0.2 % (0.0-1.0); %Eosinophils 1.9 % (0.0-10.0); %Lymphocytes 9.3 % (21.0-51.0); %Monocytes 3.6 % (0.0-10.0); %Neutrophils 85.1 % (42.0-75.0); Hemoglobin 7.7 g/dL (14.0-18.0); Mean Corpuscular HGB CONC 31.6 g/dL (32.0-36.0); Mean Corpuscular Hemoglobin 30.1 pg (27.0-31.0); Mean Corpuscular Volume 95.3 fL (78.0-98.0); Mean Platelet Volume 7.3 fL (7.4-10.4); Platelet Count 268 thou/uL (130-400); RBC Distribution Width 14.8 % (11.5-14.5); Red Blood Cell (RBC) Count 2.55 mill/uL (4.70-6.10); White Blood Cell (WBC) Count 14.9 thou/uL (4.8-10.8)
[2020-12-25 04:23] LABS: Anion Gap 13 mmol/L (10-20); BUN (Urea Nitrogen) 25 mg/dL (8.4-25.7); Calc. Creatinine Clearance 139 mL/min (70-130); Carbon Dioxide 26 mmol/L (23-31); Chloride 104 mmol/L (98-107); Glucose 107 mg/dL (80-115); Potassium 3.6 mmol/L (3.5-5.1); Sodium 139 mmol/L (136-145)
[2020-12-25] MEDS ORDERED: Morphine 4 MG/ML VIAL ONE (05:49)
[2020-12-25] MEDS ORDERED: Morphine 4 MG/ML VIAL SLOW IVP PRN (05:55)
[2020-12-25] MEDS: Propofol 1,000 MG/100 ML VIAL IV PRN ×2 (06:18→20:09)
[2020-12-25] MEDS: Metoclopramide HCl 10 MG/2 ML VIAL IVP SCH ×2 (07:04→14:00)
[2020-12-25] MEDS: Mometasone 100 MCG/PUFF (1 INHALER) INH SCH ×2 (07:36→18:27)
[2020-12-25] MEDS: Mometasone 200 MCG/Formoterol 5 MCG 120 PUFF INHALER INH SCH ×2 (07:36→18:26)
[2020-12-25] MEDS: Pantoprazole 40 MG VIAL IVP SCH ×2 (08:37→20:09)
[2020-12-25] MEDS: Dexamethasone 4 mg/ml Vial SLOW IVP SCH (08:37)
[2020-12-25] MEDS: Docusate Sodium 100 MG/10 ML UDCUP PER TUBE SCH ×2 (08:38→20:10)
[2020-12-25] MEDS: Acetaminophen 325 MG TAB PER TUBE PRN ×2 (09:27→23:52)
[2020-12-25] MEDS: risperiDONE 0.25 MG TAB PO SCH ×2 (09:28→20:09)
[2020-12-25] MEDS: Zinc Sulfate 220 MG CAP PO SCH (09:28)
[2020-12-25] MEDS: Linezolid 600 MG TAB PO SCH ×2 (09:35→20:09)
--- NOTE | 2020-12-25 09:49 | CT ---
PRELIMINARY REPORT/[facility]/EMERGENCY AFTER HOURS PROCEDURE: Receipt of this report by the clinical staff was confirmed with Brooks Mckinnon RN by Minerva Yanez on Dec 032020 00:53:00 USER SUPPORT ANALYST SUPERVISOR. Addendum electronically signed by Minerva Yanez on December 25, 2020 12:53:16 AM USER SUPPORT ANALYST SUPERVISOR EXAM: CT Abdomen and Pelvis with Intravenous Contrast CLINICAL HISTORY: Abdominal hernia hardening over past 24 hours. TECHNIQUE: Axial computed tomography images of the abdomen and pelvis with intravenous contrast. CONTRAST: With; ISOVUE 370,100mL COMPARISON: None provided. FINDINGS: LUNG BASES: Lungs show diffuse heterogeneous airspace opacities with traction bronchiectasis and volume loss. Hea rt is enlarged. NG tube folded over in the duodenum and the tip is in the antrum of the stomach. LIVER: Unremarkable. GALLBLADDER AND BILE DUCTS: Gallbladder wall appears calcified.. There is mild dilation of the intrahepatic bile ducts. Common bi le duct measures 8 mm. No filling defects. PANCREAS: Unremarkable. SPLEEN: Unremarkable. ADRENAL GLANDS: Unremarkable. KIDNEYS, URETERS, AND BLADDER: Left inguinal hernia contains fat with moderate soft tissues infiltration. Portion of the left anteri or bladder extends into the hernia with there is wall thickening. Remaining Bladder wall shows diffus e thickening and soft tissue stranding with intraluminal air. 4.4 x 5 x 3.4 cm Filling defect in the dependent bladder measures 69 HU suggesting presence of blood products. STOMACH AND BOWEL: No obstruction. No wall thickening. There is colonic diverticulosis. No CT evidence of colitis or a cute diverticulitis. APPENDIX: No CT evidence for appendicitis. PERITONEUM: No free fluid. No free air. LYMPH NODES: No lymphadenopathy. REPRODUCTIVE: Unremarkable as visualized. VASCULATURE: No aortic aneurysm. BONES: No fracture or suspicious osseous abnormality. ABDOMINAL WALL AND SOFT TISSUES: Unremarkable. IMPRESSION: Left inguinal hernia that contains fat and portion of urinary bladder. Bladder wall appears thickene d. Moderate amount of soft tissue stranding noted within the hernia sac. Findings raise concern for ischemic changes. Recommend clinical correlation for incarceration. Remaining bladder shows wall thickening and soft tissue stranding with dependent hematoma. Heterogeneous airspace opacities with volume loss in the bilateral lungs suggesting subacute or pneum onia or DAD/ARDS. Possible porcelain gallbladder. NG tube folded over in the duodenum. Repositioning advised. ELECTRONICALLY SIGNED BY: Gail Cardenas MD Dec 25, 2020 12:44:50 AM USER SUPPORT ANALYST SUPERVISOR This report is intended for review by the ordering physician only, in accordance of law. If you recei ve this report in error, please call [facility] at [phone]. FINAL REPORT EMERGENCY AFTER HOURS CT ABDOMEN AND PELVIS: IMPRESSION: Agree with the preliminary interpretation, with the following modifications: Increased density at the base of the urinary bladder could reflect blood products, though neoplasm is not excluded. Bladder gas is demonstrated, which could be iatrogenic and clinical correlation is nec essary. Porcelain gallbladder. Surgical consultation is recommended. POS: [facility]
[2020-12-25] MEDS ORDERED: Ondansetron PF 4 MG/2 ML Vial ONE (10:36)
[2020-12-25] MEDS ORDERED: ePHEDrine 50 MG/ML VIAL ONE (10:36)
[2020-12-25] MEDS ORDERED: PROPOFOL 200 MG/20 ML VIAL ONE (10:36)
[2020-12-25] MEDS ORDERED: Rocuronium Bromide 10 MG/ML (10ML VIAL) ONE (10:36)
[2020-12-25] MEDS ORDERED: Dexamethasone 20 MG/5 ML VIAL ONE (10:36)
[2020-12-25] MEDS ORDERED: PHENYLEPHRINE-NS 100 MCG/ML 10 ML SYRINGE ONE ×2 (10:36→12:27)
[2020-12-25] MEDS ORDERED: Norepinephrine 8 MG/0.9% NS 250 ML ONE (10:46)
[2020-12-25] MEDS ORDERED: Midazolam HCl 2 mg/2 ml Vial ONE (12:20)
[2020-12-25] MEDS ORDERED: Fentanyl 250 MCG/5 ML VIAL ONE (12:20)
[2020-12-25] MEDS ORDERED: Sodium Chloride 0.9% 20 ML ONE (13:07)
[2020-12-25] MEDS ORDERED: Bupivacaine 0.25% HCL 30 ML VIAL ONE (13:07)
[2020-12-25] MEDS ORDERED: XYLOCAINE 2%-EPI 1:100,000 20 ML VIAL ONE (13:07)
[2020-12-25] MEDS ORDERED: Ketamine 50 MG/ML (10ML VIAL) ONE (13:36)
[2020-12-25] MEDS ORDERED: Phenylephrine 10 MG/ML VIAL ONE (13:53)
[2020-12-25] MEDS ORDERED: Albumin 5% 500 ML ONE (13:53)
[2020-12-25] MEDS ORDERED: Fentanyl CADD 100 ML IV SCH (14:00)
--- NOTE | 2020-12-25 14:00 | PDOC.HOSPP ---
- Subjective Encounter Date: 12/25/20 Encounter Time: 10:35 Subjective: His blood pressure is on the low side. He is being titrated with the propofol. He is not on any blood pressure medications. He remains on the vent. CT abdomen pelvis report reviewed. Urology and surgery onboard - Objective Vital Signs & Weight: Vital Signs (12 hours) Temp Pulse Resp BP Pulse Ox 12/25/20 12:32 98 88/60 L 12/25/20 12:00 98.8 F 12/25/20 11:00 99.1 F 12/25/20 10:00 101.1 F H 12/25/20 09:27 103.1 F H 12/25/20 09:00 103.1 F H 12/25/20 08:00 40 H 12/25/20 07:49 155 H 152/94 H 12/25/20 07:38 150 H 12/25/20 07:37 152 H 46 H 94 L 12/25/20 07:25 102.9 F H 12/25/20 06:00 38 H 12/25/20 04:25 97.6 F 12/25/20 04:00 98.3 F 24 H 12/25/20 03:19 101 H 12/25/20 02:22 90 16 100 12/25/20 02:00 19 Weight Admit Weight 175 lb Weight 188 lb 7.924 oz Most Recent Monitor Data Heart Rate from ECG 104 NIBP 111/73 NIBP BP-Mean 85 Respiration from ECG 29 SpO2 100 I&O: 12/24/20 12/25/20 12/26/20 06:59 06:59 06:59 Intake Total 2943.5 1547 60 Output Total 2505 2137 240 Balance 438.5 -590 -180 Result Diagrams: 12/25/20 03:18 12/25/20 03:18 Hospitalist ROS - Medication Medications: Active Medications Generic Name Dose Route Start Last Admin Trade Name Freq PRN Reason Stop Dose Admin Acetaminophen 650 mg 12/14/20 08:13 12/25/20 09:27 Acetaminophen 325 Mg Tab PER TUBE 650 mg Q6H PRN Administration Headache/Fever or Pain Albuterol/Ipratropium 3 ml 12/21/20 13:00 12/25/20 07:37 Ipratropium/Albuterol Sulfate 3 Ml Neb NEB 3 ml [id number] BEATRICE Administration Dexamethasone 6 mg 12/14/20 09:00 12/25/20 08:37 Dexamethasone 4 Mg/Ml Vial SLOW IVP 6 mg DAILY BEATRICE Administration Docusate Sodium 100 mg 12/14/20 21:00 12/25/20 08:38 Docusate Sodium 100 Mg/10 Ml Udcup PER TUBE Not Given BID BEATRICE Guaifenesin/Dextromethorphan 15 ml 12/20/20 20:49 12/20/20 22:45 Guaifenesin Dm 100-10/5 Ml Udcup PO 15 ml Q4H PRN Administration Cough Sodium Chloride 1,000 mls @ 50 mls/hr 12/16/20 09:30 12/24/20 16:33 1/2 Normal Saline IV 1,000 mls .Q20H BEATRICE Administration Dexmedetomidine HCl 400 mcg/ 100 mls @ 0 mls/hr 12/17/20 13:30 12/25/20 08:43 Sodium Chloride IVPB 100 mls INF BEATRICE Administration Protocol Titrate Linezolid 600 mg 12/19/20 21:00 12/25/20 09:35 Linezolid 600 Mg Tab PO 12/29/20 21:01 600 mg Q12HR BEATRICE Administration Metoclopramide HCl 10 mg 12/15/20 14:00 12/25/20 07:04 Metoclopramide Hcl 10 Mg/2 Ml Vial IVP Not Given Q8HR BEATRICE Mometasone Furoate 200 mcg 12/20/20 18:30 12/25/20 07:36 Mometasone 100 Mcg/Puff (1 Inhaler) INH Not Given BID-RT BEATRICE Mometasone Furoate/Formoterol Fumar 2 puff 12/06/20 18:30 12/25/20 07:36 Mometasone 200 Mcg/Formoterol 5 Mcg 120 Puff Inhaler INH 2 puff BID-RT BEATRICE Administration Morphine Sulfate 4 mg 12/25/20 05:55 12/25/20 07:02 Morphine 4 Mg/Ml Vial SLOW IVP 4 mg Q4H PRN Administration Pain Pantoprazole Sodium 40 mg 12/14/20 21:00 12/25/20 08:37 Pantoprazole 40 Mg Vial IVP 40 mg BID BEATRICE Administration Propofol 1,000 mg 12/10/20 11:45 12/25/20 06:18 Propofol 1,000 Mg/100 Ml Vial IV 01/09/21 11:45 1,000 mg INF PRN Administration TO ACHIEVE GOAL RASS Protocol Risperidone 0.5 mg 12/15/20 21:00 12/25/20 09:28 Risperidone 0.25 Mg Tab PO 0.5 mg BID BEATRICE Administration Scopolamine 1.5 mg 12/22/20 15:00 12/22/20 15:42 Scopolamine 1.5 Mg/72 Hour Patch TOP 1.5 mg Q3D BEATRICE Administration Sodium Chloride 10 ml 12/10/20 21:00 12/25/20 08:37 Flush - Normal Saline 10 Ml Syringe IVF 10 ml Q12HR BEATRICE Administration Zinc Sulfate 220 mg 12/06/20 09:00 12/25/20 09:28 Zinc Sulfate 220 Mg Cap PO 220 mg DAILY BEATRICE Administration - Exam General Appearance: ill appearing General - other findings: On vent Eye: PERRL ENT: normocephalic atraumatic Neck: supple Respiratory: CTAB Gastrointestinal: soft, normal bowel sounds Neurological: cranial nerve grossly intact, no focal deficits Psychiatric: not oriented Hosp A/P - Plan 65 year old male with no known past medical history presenting with shortness of breath, altered mental stauts and COVID. Chest X ray showed bibasilar infiltrate #Acute hypoxic respiratory failure secondary to COVID pneumonia #Staph epidermidis bacteremia - still intubated. He is currently on precedex. Blood culture shows 1/2 coag negative staph. Repeat blood cultures show 2/2 staph epidermidis. Respiratory culture unremarkable. -ID has recommended no need for antibiotics. ---------? -Pulmonary has started on linezolid on 12/19. Patient is s/p meropenem for 7 days -WBC is down to 11. Anemia - Hb 7.8, will continue to monitor for need for transfusion - check B12/folate/TSH Hypertension- -not on meds currently SAVANNAH -resolved Acute GI bleed -coffee ground material in NG tube on 12/15. -He is s/p endoscopy showing ulcers. Continue protonix 40 mg IV Bid. -Biopsy showed chronic inactive gastritis with intestinal metaplasia with focal mild dysplasia History of COPD - continue dulera and steroids Ct abd/pelvis "Part of the bladder being herniated soft tissue stranding with in the hernia sac concern for ischemic changes rest of the bladder wall thickening and soft tissue stranding with a dependent hematoma ongoing Pneumonia/ARDS Possible porcelain gallbladder NG tube over in the duodenum ----repositioning advised. -Given the significant nature of the complexity, I will broaden the antibiotic for now from infectious point of view. -Blood cultures are ordered along with the Zyvox, Zosyn ordered. Hematoma Probable ischemic bowel and bladder Patient currently in the OR -Appreciate the help from urologist and surgery Overall his condition is critical We will request the palliative care to be involved to coordinate with the family regarding the complexity of his clinical conditions[s] as well as his CODE STATUS. Dispo: continue weaning of ventilator per pulmonary
[2020-12-25] MEDS ORDERED: Norepinephrine 8 MG/0.9% NS 250 ML IVPB SCH (14:45)
--- NOTE | 2020-12-25 15:54 | PRG ---
DATE OF SERVICE: 12/25/2020 SUBJECTIVE: Amador Ramos apparently clinically deteriorated this morning. He is felt to have a possible incarcerated hernia. CT scan showed bladder and bowel in the hernia, so he is in the OR right now. He was requiring pressors this morning. OBJECTIVE: VITAL SIGNS: Heart rates in the 90s. FiO2 is at 35%. CHEST: He had equal breath sounds on chest exam. HEART: Regular rhythm. ABDOMEN: Soft. IMPRESSION: COVID pneumonia with respiratory failure. Obviously, he will not be extubated after surgery. He can be removed from isolation if this has not already been done. Job ID: [id number]
[2020-12-25] MEDS: Sodium Chloride 0.45% 1,000 ML IV SCH (16:05)
[2020-12-25] MEDS: Piperacillin/Tazobactam 3.375 GM in Sodium Chloride 0.9% 100 ML IVPB SCH ×2 (16:10→23:02)
[2020-12-25] MEDS: Scopolamine 1.5 mg/72 hour Patch TOP SCH (16:11)
--- NOTE | 2020-12-25 16:35 | RAD ---
Chest one view HISTORY: Central line placement. COMPARISON: 12/24/2020. FINDINGS: Tip of a new right internal jugular central venous catheter projects over the superior vena cava. No evidence of pneumothorax. Other lines and tubes are unchanged in position. Prominent patchy areas of ill-defined infiltrate throughout each lung are similar in appearance to th e prior study. IMPRESSION : Right central venous catheter in good radiographic position.
--- NOTE | 2020-12-25 17:38 | CON ---
DATE OF CONSULTATION: 12/25/2020 REASON FOR CONSULTATION: Unable to place Sanchez catheter. Gross hematuria. HISTORY: Mr. Ramos is a 65-year-old gentleman who was admitted to the hospital on 12/05/2020, with severe respiratory distress as a result of COVID infection. He has been in the hospital since that time. He denies any prior urologic history. Last night on 12/24/2020, he removed his Sanchez catheter with the balloon inflated. Prior to that, there was no hematuria. When he was admitted to the hospital on 12/05/2020, there was not any microscopic hematuria. He has now developed gross hematuria. Attempts were made to place a Sanchez catheter and they were unsuccessful. He denies any prior prostate surgery. CT scan was performed as it was felt that his left lower quadrant was developing a mass. The CT scan demonstrates a left inguinal hernia along with some herniation of the bladder lumen. There was also some debris in the bladder consistent with clot. PAST MEDICAL HISTORY: No chronic known medical problems. PAST SURGICAL HISTORY: No prior urologic surgeries. No prior admissions to this hospital. ALLERGIES: UNKNOWN. CURRENT MEDICATIONS: Please see chart. He has been on some fentanyl, although it is being weaned down at this time. He also has recently become hypotensive and febrile and is on Levophed at this time. FAMILY HISTORY: Noncontributory. REVIEW OF SYSTEMS: The patient is not able to provide reliable review of systems at this time, although he denies any pain. Since my visit in the room, his sedation was weaned down as a result of his hypotension and he seemed to answer questions appropriately with nods. PHYSICAL EXAMINATION: GENERAL: He is awake and seems somewhat alert at this time. VITAL SIGNS: T-max 101, blood pressure 86/57, O2 saturation 100% on the respirator. CHEST: No wheezing noted. ABDOMEN: Soft, nontender. No palpable bladder distention after catheter placement and hand irrigation by me, please see below. There is still a palpable left inguinal bulge. : Penis is uncircumcised. Urethral meatus has a blood clot. Scrotum, no lesions. Testicles palpably normal bilaterally. PROCEDURE: The patient was sterilely prepped. Attempt was made to place a 20-Irish coude catheter and this was unsuccessful. A 16-Irish coude catheter, however, could be placed. Hand irrigation was performed to evacuate clot from the bladder. After clot was evacuated from the bladder, the catheter drainedurine with light pink tinge. IMPRESSION: Clot, urinary retention resulting from inadvertent removal of the Sanchez catheter with the balloon inflated. The clot has now been evacuated cystoscopically. The catheter is draining well. RECOMMENDATIONS: Leave Sanchez catheter in place until the patient is more ambulatory. Job ID: [id number] MTDD
--- NOTE | 2020-12-25 19:38 | CON ---
DATE OF CONSULTATION: 12/25/2020 CHIEF COMPLAINT: Incarcerated left inguinal hernia. HISTORY OF PRESENT ILLNESS: The patient is a 65-year-old male. He has been hospitalized here since December 05 (hospital day #21). He was hospitalized with respiratory problems secondary to gong virus. He had been making good appropriate progress and was about to be extubated when he apparently became confused yesterday and pulled his Sanchez catheter. It was at this time there was noted that he had a firm mass in his left groin that could not be reduced. CT scan was obtained last night that showed a large left inguinal hernia with bladder within the hernia and there was suspicion for bladder thickening with bladder involvement within the incarcerated segment. I am consulted for further surgical management of this. Sanchez catheter was unable to be replaced by nursing staff. He had blood per the urethra. Dr. Lamar was consulted this morning and was able to replace a Sanchez catheter. There was a large amount of blood clot within the bladder. It is uncertain of course whether this was related to the Sanchez catheter removal or some problem regarding the hernia. PAST MEDICAL HISTORY: Essentially negative prior to this event. PAST SURGICAL HISTORY: Unknown. CURRENT MEDICATIONS: Here in the intensive care unit include: 1. Zyvox. 2. Precedex. 3. Propofol. 4. Levophed. He has been tolerating tube feeds. ALLERGIES: NO KNOWN DRUG ALLERGIES. PERSONAL AND SOCIAL HISTORY: He is apparently not a smoker. REVIEW OF SYSTEMS: Otherwise unremarkable. FAMILY HISTORY: Noncontributory. PHYSICAL EXAMINATION: VITAL SIGNS: Current pressure is 88/60 with him requiring intravenous pressors. His temperature this morning was 103.1. He had been afebrile up until 4'o clock this morning, heart rate is 120s. He had not been tachycardic until 4 o'clock this morning. HEAD EYES, EARS, NOSE, THROAT: Unremarkable. NECK: Supple. LUNGS: Clear to auscultation. CARDIAC: Regular rate and rhythm. ABDOMEN: Soft, nontender, nondistended. : He has normal male external genitalia. There is a large firm left inguinal mass. I am unable to reduce this at all. The testicles appear to be descended. LABORATORY DATA: His electrolytes are within normal limits as is his creatinine. His white blood cell count has gone up from 11 yesterday to 14.9 today. Hemoglobin is low at 7.7. Platelet count is 268. When he came to the hospital, his hemoglobin was 15.9. He apparently had a bleeding ulcer that was treated by Gastroenterology during this hospitalization. He has been transfused with 3 units of packed red blood cells during this hospitalization. ASSESSMENT: The patient with an incarcerated, possibly strangulated left inguinal hernia with bladder involvement. Plan is open left inguinal hernia repair. The bladder will be assessed during the surgery. If there appears to be any concerns regarding bladder involvement, I will notify Dr. Lamar. Job ID: [id number]
[2020-12-26] MEDS: Propofol 1,000 MG/100 ML VIAL IV PRN (02:57)
[2020-12-26 04:23] LABS: #Eosinphils 0.1 thou/uL (0.0-0.7); #Lymphocytes 0.7 thou/uL (1.20-3.40); #Monocytes 0.2 thou/uL (0.11-0.59); #Neutrophils 5.5 thou/uL (1.40-6.50); %Basophils 0.1 % (0.0-1.0); %Eosinophils 1.4 % (0.0-10.0); %Lymphocytes 10.2 % (21.0-51.0); %Monocytes 2.6 % (0.0-10.0); %Neutrophils 85.7 % (42.0-75.0); Mean Corpuscular HGB CONC 32.8 g/dL (32.0-36.0); Mean Corpuscular Volume 94.5 fL (78.0-98.0); Mean Platelet Volume 6.9 fL (7.4-10.4); Platelet Count 212 thou/uL (130-400); RBC Distribution Width 14.9 % (11.5-14.5); Red Blood Cell (RBC) Count 2.25 mill/uL (4.70-6.10); White Blood Cell (WBC) Count 6.5 thou/uL (4.8-10.8)
[2020-12-26 04:46] LABS: Anion Gap 10 mmol/L (10-20); BUN (Urea Nitrogen) 22 mg/dL (8.4-25.7); Calc. Creatinine Clearance 127 mL/min (70-130); Calcium 7.3 mg/dL (7.8-10.44); Carbon Dioxide 27 mmol/L (23-31); Chloride 106 mmol/L (98-107); Glucose 108 mg/dL (80-115); Potassium 3.3 mmol/L (3.5-5.1); Sodium 140 mmol/L (136-145)
[2020-12-26] MEDS: Acetaminophen 325 MG TAB PER TUBE PRN (06:38)
[2020-12-26] MEDS: Piperacillin/Tazobactam 3.375 GM in Sodium Chloride 0.9% 100 ML IVPB SCH ×2 (06:38→15:06)
--- NOTE | 2020-12-26 07:05 | OP ---
DATE OF PROCEDURE: 12/25/2020 PREOPERATIVE DIAGNOSIS: Incarcerated left inguinal hernia with incarcerated bladder hernia. POSTOPERATIVE DIAGNOSIS: Incarcerated left inguinal hernia with incarcerated bladder hernia. OPERATION PERFORMED: Open repair of incarcerated left inguinal hernia with mesh using a Lexi mesh repair. ANESTHESIA: General endotracheal. INDICATIONS FOR PROCEDURE: The patient is a 65-year-old male, gong virus patient who has been admitted for a lengthy period of time. Last night, he removed his own Sanchez catheter. At that time, he was noted to have enlargement of a mass in the left groin. CT scan suggested an incarcerated segment of bladder. Sanchez catheter was placed by Dr. Lamar just before the surgery. The patient was taken to the operating room for repair of his incarcerated left inguinal hernia only contents of the hernia are bladder. DESCRIPTION OF PROCEDURE: Informed consent was obtained, patient taken to the operating room. General endotracheal anesthesia was obtained with the patient in supine position. Groin was trimmed of hair, prepped with ChloraPrep and draped in sterile fashion. Local anesthetic was infiltrated using a mixture of 0.25% Marcaine with epinephrine and 1% lidocaine with epinephrine . An oblique left inguinal incision was created. Dissection carried through skin and subcutaneous tissue. Dissection was carried down to the hernia and the fascia was identified laterally. There was clearly a very large external ring. The external fascia was opened parallel to its fiber so as to open external ring. I then dissected the plane between the external oblique. I dissected around the cord structures encasing the Margarita drain. I then incised the hernia sac. There was a small amount of fluid within this, but I was able to identify the bladder, carefully dissected around this. I then reduced entire bladder from within the hemiscrotum up into the field. The opening at the internal ring was far too tight to allow reduction of the bladder and I opened this with electrocautery. I then digitally dissected the preperitoneal plane around the bladder and inspected the bladder. There was a darkened indention at the level of the prior impingement upon the bladder, but did not appear to be necrotic and there was no foul smell. I decided not to open the bladder. I discussed this over the phone with Dr. Lamar, who agreed. Then, using slow continued pressure, I was able to reduce the bladder back within the preperitoneal space. I then further dissected the cord carefully adjacent tissue. There was a large cord lipoma and this was excised. I closed the residual hernia sac over the bladder with a running suture of 2-0 Vicryl. I obtained a Marlex mesh patch, preshaped and placed this over the inguinal canal. This was secured to the shelving edge of the external oblique with a running suture of 2-0 Prolene. I then secured the upper aspect of the mesh through the fascia of the internal oblique using several interrupted sutures of 2-0 Prolene. The tails of the mesh patch were secured around the cord structures with another interrupted suture of Prolene and finally, the tails of the mesh were secured to the shelving edge of the inguinal ligament laterally. The area was thoroughly irrigated and all irrigant was aspirated. The external oblique fascia was closed with a running suture of 3-0 Vicryl. was closed in layers with 3-0 and 4-0 Monocryl. Dermabond was placed externally. There were no complications. Blood loss was negligible. The patient tolerated the procedure well and was taken to recovery in stable condition. Job ID: [id number]
[2020-12-26] MEDS: Mometasone 200 MCG/Formoterol 5 MCG 120 PUFF INHALER INH SCH ×2 (07:21→19:40)
[2020-12-26] MEDS: Mometasone 100 MCG/PUFF (1 INHALER) INH SCH (07:41)
[2020-12-26] MEDS: Docusate Sodium 100 MG/10 ML UDCUP PER TUBE SCH ×2 (09:10→21:12)
[2020-12-26] MEDS: risperiDONE 0.25 MG TAB PO SCH ×2 (09:10→21:11)
[2020-12-26] MEDS: Zinc Sulfate 220 MG CAP PO SCH (09:11)
[2020-12-26] MEDS: Linezolid 600 MG TAB PO SCH ×2 (09:11→21:11)
[2020-12-26] MEDS: Pantoprazole 40 MG VIAL IVP SCH ×2 (09:11→21:08)
[2020-12-26] MEDS: Dexamethasone 4 mg/ml Vial SLOW IVP SCH (09:11)
[2020-12-26] MEDS ORDERED: Potassium Phosphate 30 MMOL in Sodium Chloride 0.9% 500 ML IVPB SCH (09:45)
--- NOTE | 2020-12-26 10:00 | PRG ---
DATE OF SERVICE: 12/26/2020 SUBJECTIVE: A 65-year-old gentleman who underwent an emergency surgery yesterday for incarcerated left inguinal hernia with incarcerated bladder hernia. He is postop. On the vent. He was to be extubated. He is going to wait 24 hours. OBJECTIVE: VITAL SIGNS: His temperature is 99.5, pulse 105, blood pressure 90/56, 35%, rate of 4, saturations 100%. CHEST: No wheezing. No crackles. CARDIAC: Normal S1 and S2. No gallops. ABDOMEN: Soft. NEUROLOGIC: He is awake and responsive. LABORATORY DATA: White count 6, H and H 7 and 21. ASSESSMENT: Respiratory failure, gong positive pneumonia, status post emergency surgery. PLAN: A unit of packed cells will be given. Otherwise, continue supportive care and PT. We will follow. Job ID: [id number]
[2020-12-26] MEDS: Sodium Chloride 0.45% 1,000 ML IV SCH ×2 (10:41→21:24)
--- NOTE | 2020-12-26 12:33 | PDOC.PALCO ---
Palliative Care Consult - Consult Details Requesting Physician: Dr Vicente Reason for Consult: goals of care, complex decision-making - Pertinent HPI patient is a 65 year old male who was initially hospitalized Dec 05 secondary to respiratory complications related to Covid. He was intubated during course of his stay at the hospital, and plans were to extubate however he had an onset of confusion and pulled out his keenan catheter. It was noted at that time there was a firm mass in left groin that was not reducible. CT confirmed left inguinal hernia with bladder in the hernia. Surgery was successfully performed. Patient awake, confused but makes eye contact and gives a "thumbs up". Plan is to extubate patient. - Social History Smoking Status: Never smoker Smoking: no tobacco exposure Drug Use History: none - Medications MAR Reviewed: Yes - Allergies Allergies/Adverse Reactions: Allergies Allergy/AdvReac Type Severity Reaction Status Date / Time No Known Allergies Allergy Verified 12/05/20 22:15 - Subjective Intubated, sedation lifted. Alert, unable to fully appreciate orientation. - ROS Non Response: due to endotracheal tube - Objective Vital Signs: Vital Signs - Most Recent Temp Pulse Resp BP Pulse Ox 99.3 F 87 23 H 97/56 L 100 12/26/20 12:14 12/26/20 11:07 12/26/20 10:00 12/26/20 11:07 12/26/20 08:46 Palliative Performance Scale: 30 - Physical Exam Constitutional: NAD, ill appearing HEENT: EOMI, moist MMs, PERRLA Respiratory: no rhonchi, no wheezing, unlabored breathing Deviation from normal: Intubated Cardiovascular: no significant murmur, RRR Gastrointestinal: soft Musculoskeletal: no clubbing, no edema Neurology: moves all 4 limbs, no focal deficits Skin: cap refill <2 seconds, no lesions, no rash - Problem List (1) Incarcerated right inguinal hernia Code(s): K40.30 - UNIL INGUINAL HERNIA, W OBST, W/O GANGR, NOT SPCF RECUR Current Visit: Yes Status: Acute (2) Palliative care encounter Code(s): Z51.5 - ENCOUNTER FOR PALLIATIVE CARE Current Visit: Yes Status: Acute (3) Acute respiratory failure with hypoxia Code(s): J96.01 - ACUTE RESPIRATORY FAILURE WITH HYPOXIA Current Visit: Yes Status: Acute (4) Pneumonia due to COVID-19 virus Code(s): U07.1 - COVID-19; J12.82 - PNEUMONIA DUE TO CORONAVIRUS DISEASE 2019 Current Visit: Yes Status: Acute (5) Sepsis Code(s): A41.9 - SEPSIS, UNSPECIFIED ORGANISM Current Visit: Yes Status: Acute - Plan/Recommendations Plan: Hopeful for extubation today with continued recovery. Palliative care will follow up and when patient decisional will revisit Directive to physician and MPOA. Please also see Palliative Care notes in note section. [40] minutes spent on this encounter with >50% of the time in counseling and coordination of care. Thank you for this very appropriate consult.
--- NOTE | 2020-12-26 14:02 | PDOC.HOSPP ---
- Subjective Encounter Date: 12/26/20 Encounter Time: 11:35 Subjective: Patient on soft restraints he is oriented; status post surgery for incarcerated left inguinal hernia and bladder hernia and hematoma; patient being transfused today - Objective Vital Signs & Weight: Vital Signs (12 hours) Temp Pulse Pulse Pulse Resp BP BP 12/26/20 13:57 88 109/66 12/26/20 12:14 99.3 F 12/26/20 12:00 99.3 F 12/26/20 11:07 87 97/56 L 12/26/20 10:06 99.7 F H 12/26/20 10:00 23 H 12/26/20 08:46 80 71 97/59 L 12/26/20 08:00 99.9 F H 12/26/20 07:22 105 H 99/56 L 12/26/20 07:08 99.9 F H 12/26/20 06:38 101.1 F H 12/26/20 06:00 101.1 F H 22 H 12/26/20 04:00 100.1 F H 21 H BP Pulse Ox Pulse Ox 12/26/20 13:57 12/26/20 12:14 12/26/20 12:00 12/26/20 11:07 12/26/20 10:06 12/26/20 10:00 12/26/20 08:46 97/59 L 100 100 12/26/20 08:00 12/26/20 07:22 12/26/20 07:08 12/26/20 06:38 12/26/20 06:00 12/26/20 04:00 Weight Admit Weight 175 lb Weight 188 lb 7.924 oz Most Recent Monitor Data Heart Rate from ECG 83 NIBP 100/62 NIBP BP-Mean 74 Respiration from ECG 21 SpO2 100 I&O: 12/25/20 12/26/20 12/27/20 06:59 06:59 06:59 Intake Total 1547 1189 450 Output Total 3521 8766 365 Balance -590 -486 85 Result Diagrams: 12/26/20 03:50 12/26/20 03:50 Hospitalist ROS - Medication Medications: Active Medications Generic Name Dose Route Start Last Admin Trade Name Freq PRN Reason Stop Dose Admin Acetaminophen 650 mg 12/14/20 08:13 12/26/20 06:38 Acetaminophen 325 Mg Tab PER TUBE 650 mg Q6H PRN Administration Headache/Fever or Pain Albuterol/Ipratropium 3 ml 12/21/20 13:00 12/26/20 13:56 Ipratropium/Albuterol Sulfate 3 Ml Neb NEB 3 ml [id number] BEATRICE Administration Dexamethasone 6 mg 12/14/20 09:00 12/26/20 09:11 Dexamethasone 4 Mg/Ml Vial SLOW IVP 6 mg DAILY BEATRICE Administration Docusate Sodium 100 mg 12/14/20 21:00 12/26/20 09:10 Docusate Sodium 100 Mg/10 Ml Udcup PER TUBE 100 mg BID BEATRICE Administration Guaifenesin/Dextromethorphan 15 ml 12/20/20 20:49 12/20/20 22:45 Guaifenesin Dm 100-10/5 Ml Udcup PO 15 ml Q4H PRN Administration Cough Sodium Chloride 1,000 mls @ 50 mls/hr 12/16/20 09:30 12/26/20 10:41 1/2 Normal Saline IV Not Given .Q20H BEATRICE Dexmedetomidine HCl 400 mcg/ 100 mls @ 0 mls/hr 12/17/20 13:30 12/26/20 09:10 Sodium Chloride IVPB 100 mls INF BEATRICE Administration Protocol Titrate Piperacillin Sod/Tazobactam 100 mls @ 200 mls/hr 12/25/20 15:00 12/26/20 06:38 Sod 3.375 gm/ Sodium Chloride IVPB 100 mls Q8H BEATRICE Administration Linezolid 600 mg 12/19/20 21:00 12/26/20 09:11 Linezolid 600 Mg Tab PO 12/29/20 21:01 600 mg Q12HR BEATRICE Administration Mometasone Furoate/Formoterol Fumar 2 puff 12/06/20 18:30 12/26/20 07:21 Mometasone 200 Mcg/Formoterol 5 Mcg 120 Puff Inhaler INH 2 puff BID-RT BEATRICE Administration Morphine Sulfate 4 mg 12/25/20 05:55 12/25/20 07:02 Morphine 4 Mg/Ml Vial SLOW IVP 4 mg Q4H PRN Administration Pain Pantoprazole Sodium 40 mg 12/14/20 21:00 12/26/20 09:11 Pantoprazole 40 Mg Vial IVP 40 mg BID BEATRICE Administration Propofol 1,000 mg 12/10/20 11:45 12/26/20 02:57 Propofol 1,000 Mg/100 Ml Vial IV 01/09/21 11:45 1,000 mg INF PRN Administration TO ACHIEVE GOAL RASS Protocol Scopolamine 1.5 mg 12/22/20 15:00 12/25/20 16:11 Scopolamine 1.5 Mg/72 Hour Patch TOP 1.5 mg Q3D BEATRICE Administration Sodium Chloride 10 ml 12/10/20 21:00 12/26/20 09:11 Flush - Normal Saline 10 Ml Syringe IVF 10 ml Q12HR BEATRICE Administration Zinc Sulfate 220 mg 12/06/20 09:00 12/26/20 09:11 Zinc Sulfate 220 Mg Cap PO 220 mg DAILY BEATRICE Administration - Exam General Appearance: NAD, awake alert Eye: PERRL ENT: normocephalic atraumatic Neck: supple Heart: RRR, normal peripheral pulses Respiratory: CTAB, normal chest expansion Gastrointestinal: soft, normal bowel sounds Gastrointestinal - other findings: Dressing in the lower part of his abdominal area noted. Neurological: no focal deficits Psychiatric: oriented to person Hosp A/P - Plan 65 year old male with no known past medical history presenting with shortness of breath, altered mental stauts and COVID. Chest X ray showed bibasilar infiltrate #Acute hypoxic respiratory failure secondary to COVID pneumonia #Staph epidermidis bacteremia - still intubated. He is currently on precedex. Blood culture shows 1/2 coag negative staph. Repeat blood cultures show 2/2 staph epidermidis. Respiratory culture unremarkable. -ID has recommended no need for antibiotics. ---------? -Pulmonary has started on linezolid on 12/19. Patient is s/p meropenem for 7 days -WBC is down to 11. Anemia - Hb 7.8, will continue to monitor for need for transfusion - check B12/folate/TSH Hypertension- -not on meds currently SAVANNAH -resolved Acute GI bleed -coffee ground material in NG tube on 12/15. -He is s/p endoscopy showing ulcers. Continue protonix 40 mg IV Bid. -Biopsy showed chronic inactive gastritis with intestinal metaplasia with focal mild dysplasia History of COPD - continue dulera and steroids Ct abd/pelvis "Part of the bladder being herniated soft tissue stranding with in the hernia sac concern for ischemic changes rest of the bladder wall thickening and soft tissue stranding with a dependent hematoma ongoing Pneumonia/ARDS Possible porcelain gallbladder NG tube over in the duodenum ----repositioning advised. -Given the significant nature of the complexity, I will broaden the antibiotic for now from infectious point of view. -Blood cultures are ordered along with the Zyvox, Zosyn ordered. Hematoma Probable ischemic bowel and bladder Patient currently in the OR -Appreciate the help from urologist and surgery Overall his condition is critical We will request the palliative care to be involved to coordinate with the family regarding the complexity of his clinical conditions[s] as well as his CODE STATUS. Dispo: continue weaning of ventilator per pulmonary -Status post open repair of incarcerated left inguinal hernia with mesh and repair of incarcerated bladder hernia on Acute blood loss anemia due to hematoma in the visceral area -Packed RBCs being transfused today Mild hypokalemia Folic acid deficiency being supplemented
[2020-12-26] MEDS: Budesonide 0.5 MG/2 ML NEB FS SCH (19:38)
[2020-12-26] MEDS: Enoxaparin Sodium 40 MG/0.4 ML SYRINGE SC SCH (21:08)
[2020-12-26] MEDS ORDERED: Fentanyl CADD 100 ML ONE (22:26)
[2020-12-27] MEDS: Piperacillin/Tazobactam 3.375 GM in Sodium Chloride 0.9% 100 ML IVPB SCH ×4 (00:40→22:34)
[2020-12-27 03:13] LABS: #Basophils 0.1 thou/uL (0.0-0.2); #Eosinphils 0.1 thou/uL (0.0-0.7); #Monocytes 0.4 thou/uL (0.11-0.59); #Neutrophils 5.9 thou/uL (1.40-6.50); %Basophils 0.8 % (0.0-1.0); %Eosinophils 1.6 % (0.0-10.0); %Lymphocytes 12.7 % (21.0-51.0); %Monocytes 5.6 % (0.0-10.0); %Neutrophils 79.4 % (42.0-75.0); Hemoglobin 8.5 g/dL (14.0-18.0); Mean Corpuscular HGB CONC 33.7 g/dL (32.0-36.0); Mean Corpuscular Hemoglobin 31.7 pg (27.0-31.0); Mean Corpuscular Volume 94.2 fL (78.0-98.0); Mean Platelet Volume 6.9 fL (7.4-10.4); Platelet Count 220 thou/uL (130-400); RBC Distribution Width 14.5 % (11.5-14.5); Red Blood Cell (RBC) Count 2.67 mill/uL (4.70-6.10); White Blood Cell (WBC) Count 7.4 thou/uL (4.8-10.8)
[2020-12-27 03:42] LABS: Anion Gap 13 mmol/L (10-20); BUN (Urea Nitrogen) 15 mg/dL (8.4-25.7); Calc. Creatinine Clearance 141 mL/min (70-130); Calcium 7.3 mg/dL (7.8-10.44); Carbon Dioxide 26 mmol/L (23-31); Chloride 104 mmol/L (98-107); Glucose 92 mg/dL (80-115); Potassium 3.3 mmol/L (3.5-5.1); Sodium 140 mmol/L (136-145)
[2020-12-27] MEDS: Budesonide 0.5 MG/2 ML NEB FS SCH ×2 (07:30→18:23)
[2020-12-27] MEDS: Mometasone 200 MCG/Formoterol 5 MCG 120 PUFF INHALER INH SCH ×2 (07:31→18:22)
[2020-12-27] MEDS: Sodium Chloride 0.45% 1,000 ML IV SCH (07:41)
[2020-12-27] MEDS: Dexamethasone 4 mg/ml Vial SLOW IVP SCH (08:38)
[2020-12-27] MEDS: risperiDONE 0.25 MG TAB PO SCH ×2 (08:39→20:55)
[2020-12-27] MEDS: Linezolid 600 MG TAB PO SCH ×2 (08:39→20:54)
[2020-12-27] MEDS: Zinc Sulfate 220 MG CAP PO SCH (08:39)
[2020-12-27] MEDS: Docusate Sodium 100 MG/10 ML UDCUP PER TUBE SCH ×2 (08:40→20:54)
[2020-12-27] MEDS: Pantoprazole 40 MG VIAL IVP SCH ×2 (08:40→20:55)
[2020-12-27] MEDS: Folic Acid 1 MG TAB PO SCH (08:40)
[2020-12-27] MEDS ORDERED: DC Sedation Protocol FS ONE (09:11)
--- NOTE | 2020-12-27 09:35 | PRG ---
DATE OF SERVICE: 12/27/2020 SUBJECTIVE: This morning, he is awake, alert, responsive, postsurgery. OBJECTIVE: VITAL SIGNS: Temperature 98, pulse 80, respiratory rate 18, blood pressure 130/80. CHEST: No wheezing. No crackles. CARDIAC: Normal S1, normal S2. ABDOMEN: No masses. He was extubated yesterday without any issues. IMPRESSION: 1. Delgado positive pneumonia, respiratory failure. 2. Status post emergency inguinal bladder hernia operation. PLAN: P.o. medicine. We may consider discontinuing oral antibiotics in the next 24 to 48 hours. He can be transferred out of the ICU to a monitored medical bed. We will follow. Job ID: [id number]
--- NOTE | 2020-12-27 13:27 | PRG ---
DATE OF SERVICE: 12/27/2020 SUBJECTIVE: Mr. Ramos remains in the critical care unit, although today, he has been extubated. He is postoperative day #2 from open repair of incarcerated left inguinal hernia with mesh. The entire incarcerated contents of his hernia were bladder. He had pulled out his Sanchez catheter before and had significant hematuria. His Sanchez catheter remains in at this time. He has been extubated and is speaking comfortably and interacting appropriately. OBJECTIVE: VITAL SIGNS: He is still tachycardic with a heart rate of 103, blood pressure is 138/79. He is afebrile. LUNGS: Clear to auscultation. ABDOMEN: Soft, nontender, nondistended. His left inguinal incision is healing nicely. Dermabond is intact. : Testicles are descended bilaterally. His urine, no longer has a bloody appearance. LABORATORY DATA: His hemoglobin is stable at 8.5 after having been transfused with 1 unit yesterday. His white blood cell count is 7.4, although he does have a left shift. Chemistry panel is essentially normal except for mild hypokalemia. ASSESSMENT: He is doing well following repair of his incarcerated left inguinal hernia and reduction of his incarcerated bladder. Sanchez catheter should remain in per now and removal will be according to the recommendations of his urologist, Dr. Lamar. He can certainly advance his activity as tolerated. I would recommend no heavy lifting for a couple of weeks, but I do not think that will be an issue for him, given the length of his hospitalization thus far. Job ID: [id number]
--- NOTE | 2020-12-27 13:54 | PDOC.HOSPP ---
- Subjective Encounter Date: 12/27/20 Encounter Time: 10:45 Subjective: Patient was extubated yesterday. He is doing well. He is stable to be transferred to the medical floor. Speech therapy evaluated him and okay to be starting him on a regular diet. - Objective Vital Signs & Weight: Vital Signs (12 hours) Temp Pulse Resp Pulse Ox 12/27/20 08:00 98.6 F 98 12/27/20 07:32 99 12/27/20 07:31 99 18 99 12/27/20 07:30 99 18 99 Weight Admit Weight 175 lb Weight 188 lb 7.924 oz Most Recent Monitor Data Heart Rate from ECG 108 NIBP 138/79 NIBP BP-Mean 98 Respiration from ECG 22 SpO2 98 I&O: 12/26/20 12/27/20 12/28/20 06:59 06:59 06:59 Intake Total 1189 2488 160 Output Total 1885 1810 170 Balance -696 678 -10 Result Diagrams: 12/27/20 03:04 12/27/20 03:04 Hospitalist ROS - Medication Medications: Active Medications Generic Name Dose Route Start Last Admin Trade Name Freq PRN Reason Stop Dose Admin Acetaminophen 650 mg 12/14/20 08:13 12/26/20 06:38 Acetaminophen 325 Mg Tab PER TUBE 650 mg Q6H PRN Administration Headache/Fever or Pain Albuterol/Ipratropium 3 ml 12/21/20 13:00 12/27/20 07:31 Ipratropium/Albuterol Sulfate 3 Ml Neb NEB 3 ml [id number] BEATRICE Administration Budesonide 0.5 mg 12/26/20 18:30 12/27/20 07:30 Budesonide 0.5 Mg/2 Ml Neb FS 0.5 mg BID-RT BEATRICE Administration Docusate Sodium 100 mg 12/14/20 21:00 12/27/20 08:40 Docusate Sodium 100 Mg/10 Ml Udcup PER TUBE 100 mg BID BEATRICE Administration Enoxaparin Sodium 40 mg 12/26/20 21:00 12/26/20 21:08 Enoxaparin Sodium 40 Mg/0.4 Ml Syringe SC 40 mg 2100 BEATRICE Administration Folic Acid 1 mg 12/27/20 09:00 12/27/20 08:40 Folic Acid 1 Mg Tab PO 1 mg DAILY BEATRICE Administration Guaifenesin/Dextromethorphan 15 ml 12/20/20 20:49 12/20/20 22:45 Guaifenesin Dm 100-10/5 Ml Udcup PO 15 ml Q4H PRN Administration Cough Piperacillin Sod/Tazobactam 100 mls @ 200 mls/hr 12/25/20 15:00 12/27/20 06:37 Sod 3.375 gm/ Sodium Chloride IVPB 100 mls Q8H BEATRICE Administration Linezolid 600 mg 12/19/20 21:00 12/27/20 08:39 Linezolid 600 Mg Tab PO 12/29/20 21:01 600 mg Q12HR BEATRICE Administration Mometasone Furoate/Formoterol Fumar 2 puff 12/06/20 18:30 12/27/20 07:31 Mometasone 200 Mcg/Formoterol 5 Mcg 120 Puff Inhaler INH 2 puff BID-RT BEATRICE Administration Morphine Sulfate 4 mg 12/25/20 05:55 12/25/20 07:02 Morphine 4 Mg/Ml Vial SLOW IVP 4 mg Q4H PRN Administration Pain Pantoprazole Sodium 40 mg 12/14/20 21:00 12/27/20 08:40 Pantoprazole 40 Mg Vial IVP 40 mg BID BEATRICE Administration Risperidone 0.25 mg 12/26/20 09:39 12/27/20 08:39 Risperidone 0.25 Mg Tab PO 0.25 mg BID BEATRICE Administration Sodium Chloride 10 ml 12/10/20 21:00 12/27/20 08:42 Flush - Normal Saline 10 Ml Syringe IVF 10 ml Q12HR BEATRICE Administration Zinc Sulfate 220 mg 12/06/20 09:00 12/27/20 08:39 Zinc Sulfate 220 Mg Cap PO 220 mg DAILY BEATRICE Administration Hospitalist Exam Vitals: Vital Signs (12 hours) Temp Pulse Resp Pulse Ox 12/27/20 08:00 98.6 F 98 12/27/20 07:32 99 12/27/20 07:31 99 18 99 12/27/20 07:30 99 18 99 Weight Admit Weight 175 lb Weight 188 lb 7.924 oz Most Recent Monitor Data Heart Rate from ECG 108 NIBP 138/79 NIBP BP-Mean 98 Respiration from ECG 22 SpO2 98 General Appearance: NAD, awake alert Eye: PERRL ENT: normocephalic atraumatic Neck: supple Heart: RRR, normal peripheral pulses Respiratory: CTAB, normal chest expansion Gastrointestinal: soft, normal bowel sounds Neurological: cranial nerve grossly intact, no focal deficits Musculoskeletal: generalized weakness Hosp A/P - Plan 65 year old male with no known past medical history presenting with shortness of breath, altered mental stauts and COVID. Chest X ray showed bibasilar infiltrate #Acute hypoxic respiratory failure secondary to COVID pneumonia #Staph epidermidis bacteremia - still intubated. He is currently on precedex. Blood culture shows 1/2 coag negative staph. Repeat blood cultures show 2/2 staph epidermidis. Respiratory culture unremarkable. -ID has recommended no need for antibiotics. ---------? -Pulmonary has started on linezolid on 12/19. Patient is s/p meropenem for 7 days -WBC is down to 11. Anemia - Hb 7.8, will continue to monitor for need for transfusion - check B12/folate/TSH Hypertension- -not on meds currently SAVANNAH -resolved Acute GI bleed -coffee ground material in NG tube on 12/15. -He is s/p endoscopy showing ulcers. Continue protonix 40 mg IV Bid. -Biopsy showed chronic inactive gastritis with intestinal metaplasia with focal mild dysplasia History of COPD - continue dulera and steroids Ct abd/pelvis "Part of the bladder being herniated soft tissue stranding with in the hernia sac concern for ischemic changes rest of the bladder wall thickening and soft tissue stranding with a dependent hematoma ongoing Pneumonia/ARDS Possible porcelain gallbladder NG tube over in the duodenum ----repositioning advised. -Given the significant nature of the complexity, I will broaden the antibiotic for now from infectious point of view. -Blood cultures are ordered along with the Zyvox, Zosyn ordered. Hematoma Probable ischemic bowel and bladder Patient currently in the OR -Appreciate the help from urologist and surgery Overall his condition is critical We will request the palliative care to be involved to coordinate with the family regarding the complexity of his clinical conditions[s] as well as his CODE STATUS. Dispo: continue weaning of ventilator per pulmonary -Status post open repair of incarcerated left inguinal hernia with mesh and repair of incarcerated bladder hernia on Acute blood loss anemia due to hematoma in the visceral area -Packed RBCs being transfused today Mild hypokalemia Folic acid deficiency being supplemented 26th Status post extubation on -Stable to transfer to medical floor -Hemoglobin at 8.5 after the transfusion yesterday. Folic acid deficiency--- being supplemented Ongoing PT evaluation and treatment
[2020-12-27] MEDS ORDERED: Fluconazole 100 MG TAB PO SCH (15:15)
[2020-12-27] MEDS: Enoxaparin Sodium 40 MG/0.4 ML SYRINGE SC SCH (20:54)
[2020-12-28] MEDS: Mometasone 200 MCG/Formoterol 5 MCG 120 PUFF INHALER INH SCH ×2 (05:27→18:47)
[2020-12-28] MEDS: Piperacillin/Tazobactam 3.375 GM in Sodium Chloride 0.9% 100 ML IVPB SCH ×3 (06:13→23:37)
[2020-12-28 06:38] LABS: #Eosinphils 0.3 thou/uL (0.0-0.7); #Lymphocytes 1.6 thou/uL (1.20-3.40); #Monocytes 0.6 thou/uL (0.11-0.59); #Neutrophils 4.6 thou/uL (1.40-6.50); %Basophils 0.4 % (0.0-1.0); %Eosinophils 3.9 % (0.0-10.0); %Lymphocytes 22.2 % (21.0-51.0); %Monocytes 8.6 % (0.0-10.0); %Neutrophils 64.9 % (42.0-75.0); Hemoglobin 8.3 g/dL (14.0-18.0); Mean Corpuscular HGB CONC 34.2 g/dL (32.0-36.0); Mean Corpuscular Hemoglobin 32.7 pg (27.0-31.0); Mean Corpuscular Volume 95.5 fL (78.0-98.0); Platelet Count 264 thou/uL (130-400); RBC Distribution Width 14.1 % (11.5-14.5); Red Blood Cell (RBC) Count 2.54 mill/uL (4.70-6.10); White Blood Cell (WBC) Count 7.1 thou/uL (4.8-10.8)
[2020-12-28 07:00] LABS: Anion Gap 11 mmol/L (10-20); BUN (Urea Nitrogen) 11 mg/dL (8.4-25.7); Calc. Creatinine Clearance 152 mL/min (70-130); Calcium 7.6 mg/dL (7.8-10.44); Carbon Dioxide 30 mmol/L (23-31); Chloride 105 mmol/L (98-107); Glucose 94 mg/dL (80-115); Sodium 143 mmol/L (136-145)
[2020-12-28 07:06] LABS: Potassium 2.9 mmol/L (3.5-5.1)
[2020-12-28] MEDS: Budesonide 0.5 MG/2 ML NEB FS SCH ×2 (07:07→19:21)
[2020-12-28] MEDS ORDERED: Potassium Chloride 20 MEQ TAB PO SCH ×2 (08:00→10:00)
[2020-12-28] MEDS: predniSONE 20 MG TAB PO SCH (08:18)
[2020-12-28] MEDS: Linezolid 600 MG TAB PO SCH ×2 (08:18→20:54)
[2020-12-28] MEDS: Fluconazole 100 MG TAB PO SCH (08:18)
[2020-12-28] MEDS: Zinc Sulfate 220 MG CAP PO SCH (08:18)
[2020-12-28] MEDS: Folic Acid 1 MG TAB PO SCH (08:19)
[2020-12-28] MEDS: Pantoprazole 40 MG VIAL IVP SCH ×2 (08:19→20:56)
[2020-12-28] MEDS: risperiDONE 0.25 MG TAB PO SCH ×2 (08:19→20:55)
[2020-12-28] MEDS: Docusate Sodium 100 MG/10 ML UDCUP PER TUBE SCH (08:19)
--- NOTE | 2020-12-28 14:20 | PDOC.HOSPP ---
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 he is quite anxious to know when he is can go home. - Objective Vital Signs & Weight: Vital Signs (12 hours) Temp Pulse Resp BP Pulse Ox 12/28/20 13:40 101 H 18 95 12/28/20 11:10 98.0 F 106 H 20 121/78 96 12/28/20 08:18 100 12/28/20 07:26 98.6 F 107 H 20 128/70 100 12/28/20 07:07 101 H 18 98 12/28/20 05:27 94 19 97 12/28/20 04:00 97.5 F L 94 19 146/83 H 97 Weight Admit Weight 175 lb Weight 188 lb 7.924 oz Most Recent Monitor Data Heart Rate from ECG 103 NIBP 123/88 NIBP BP-Mean 99 Respiration from ECG 32 SpO2 97 I&O: 12/27/20 12/28/20 12/29/20 06:59 06:59 06:59 Intake Total 2488 730 Output Total 1810 810 Balance 678 -80 Result Diagrams: 12/28/20 06:15 12/28/20 06:15 Hospitalist ROS - Medication Medications: Active Medications Generic Name Dose Route Start Last Admin Trade Name Amilcar PRN Reason Stop Dose Admin Acetaminophen 650 mg 12/14/20 08:13 12/26/20 06:38 Acetaminophen 325 Mg Tab PER TUBE 650 mg Q6H PRN Administration Headache/Fever or Pain Albuterol/Ipratropium 3 ml 12/21/20 13:00 12/28/20 13:40 Ipratropium/Albuterol Sulfate 3 Ml Neb NEB 3 ml [id number] BEATRICE Administration Budesonide 0.5 mg 12/26/20 18:30 12/28/20 07:07 Budesonide 0.5 Mg/2 Ml Neb FS 0.5 mg BID-RT BEATRICE Administration Docusate Sodium 100 mg 12/14/20 21:00 12/28/20 08:19 Docusate Sodium 100 Mg/10 Ml Udcup PER TUBE 100 mg BID BEATRICE Administration Enoxaparin Sodium 40 mg 12/26/20 21:00 12/27/20 20:54 Enoxaparin Sodium 40 Mg/0.4 Ml Syringe SC 40 mg 2100 BEATRICE Administration Fluconazole 100 mg 12/28/20 09:00 12/28/20 08:18 Fluconazole 100 Mg Tab PO 100 mg DAILY BEATRICE Administration Folic Acid 1 mg 12/27/20 09:00 12/28/20 08:19 Folic Acid 1 Mg Tab PO 1 mg DAILY BEATRICE Administration Guaifenesin/Dextromethorphan 15 ml 12/20/20 20:49 12/20/20 22:45 Guaifenesin Dm 100-10/5 Ml Udcup PO 15 ml Q4H PRN Administration Cough Piperacillin Sod/Tazobactam 100 mls @ 200 mls/hr 12/25/20 15:00 12/28/20 06:13 Sod 3.375 gm/ Sodium Chloride IVPB 100 mls Q8H BEATRICE Administration Linezolid 600 mg 12/19/20 21:00 12/28/20 08:18 Linezolid 600 Mg Tab PO 12/29/20 21:01 600 mg Q12HR BEATRICE Administration Mometasone Furoate/Formoterol Fumar 2 puff 12/06/20 18:30 12/28/20 05:27 Mometasone 200 Mcg/Formoterol 5 Mcg 120 Puff Inhaler INH 2 puff BID-RT BEATRICE Administration Morphine Sulfate 4 mg 12/25/20 05:55 12/25/20 07:02 Morphine 4 Mg/Ml Vial SLOW IVP 4 mg Q4H PRN Administration Pain Pantoprazole Sodium 40 mg 12/14/20 21:00 12/28/20 08:19 Pantoprazole 40 Mg Vial IVP 40 mg BID BEATRICE Administration Prednisone 20 mg 12/28/20 08:00 12/28/20 08:18 Prednisone 20 Mg Tab PO 20 mg QAM-WM BEATRICE Administration Sodium Chloride 10 ml 12/10/20 21:00 12/28/20 08:20 Flush - Normal Saline 10 Ml Syringe IVF 10 ml Q12HR BEATRICE Administration Zinc Sulfate 220 mg 12/06/20 09:00 12/28/20 08:18 Zinc Sulfate 220 Mg Cap PO 220 mg DAILY BEATRICE Administration Hospitalist Exam Vitals: Vital Signs (12 hours) Temp Pulse Resp BP Pulse Ox 12/28/20 13:40 101 H 18 95 12/28/20 11:10 98.0 F 106 H 20 121/78 96 12/28/20 08:18 100 12/28/20 07:26 98.6 F 107 H 20 128/70 100 12/28/20 07:07 101 H 18 98 12/28/20 05:27 94 19 97 12/28/20 04:00 97.5 F L 94 19 146/83 H 97 Weight Admit Weight 175 lb Weight 188 lb 7.924 oz Most Recent Monitor Data Heart Rate from ECG 103 NIBP 123/88 NIBP BP-Mean 99 Respiration from ECG 32 SpO2 97 General Appearance: NAD, awake alert Eye: PERRL ENT: normocephalic atraumatic Heart: RRR Respiratory: CTAB, normal chest expansion Gastrointestinal: soft, normal bowel sounds Musculoskeletal: generalized weakness Psychiatric: A&O x 3 Hosp A/P - Plan 65 year old male with no known past medical history presenting with shortness of breath, altered mental stauts and COVID. Chest X ray showed bibasilar infiltrate #Acute hypoxic respiratory failure secondary to COVID pneumonia #Staph epidermidis bacteremia - still intubated. He is currently on precedex. Blood culture shows 1/2 coag negative staph. Repeat blood cultures show 2/2 staph epidermidis. Respiratory culture unremarkable. -ID has recommended no need for antibiotics. ---------? -Pulmonary has started on linezolid on 12/19. Patient is s/p meropenem for 7 days -WBC is down to 11. Anemia - Hb 7.8, will continue to monitor for need for transfusion - check B12/folate/TSH Hypertension- -not on meds currently SAVANNAH -resolved Acute GI bleed -coffee ground material in NG tube on 12/15. -He is s/p endoscopy showing ulcers. Continue protonix 40 mg IV Bid. -Biopsy showed chronic inactive gastritis with intestinal metaplasia with focal mild dysplasia History of COPD - continue dulera and steroids Ct abd/pelvis "Part of the bladder being herniated soft tissue stranding with in the hernia sac concern for ischemic changes rest of the bladder wall thickening and soft tissue stranding with a dependent hematoma ongoing Pneumonia/ARDS Possible porcelain gallbladder NG tube over in the duodenum ----repositioning advised. -Given the significant nature of the complexity, I will broaden the antibiotic f or now from infectious point of view. -Blood cultures are ordered along with the Zyvox, Zosyn ordered. Hematoma Probable ischemic bowel and bladder Patient currently in the OR -Appreciate the help from urologist and surgery Overall his condition is critical We will request the palliative care to be involved to coordinate with the family regarding the complexity of his clinical conditions[s] as well as his CODE STATUS. Dispo: continue weaning of ventilator per pulmonary -Status post open repair of incarcerated left inguinal hernia with mesh and repair of incarcerated bladder hernia on Acute blood loss anemia due to hematoma in the visceral area -Packed RBCs being transfused today Mild hypokalemia Folic acid deficiency being supplemented Status post extubation on -Stable to transfer to medical floor -Hemoglobin at 8.5 after the transfusion yesterday. Folic acid deficiency--- being supplemented Ongoing PT evaluation and treatment Patient is more oriented and cooperating today. Plan is to follow with Dr. Aldana urologist regarding his Sanchez catheter. He would benefit with rehab placement.
--- NOTE | 2020-12-28 16:01 | PDOC.FMACP ---
Advance Care Planning - Problem (1) Incarcerated right inguinal hernia Status: Acute Code(s): K40.30 - UNIL INGUINAL HERNIA, W OBST, W/O GANGR, NOT SPCF RECUR (2) Palliative care encounter Status: Acute Code(s): Z51.5 - ENCOUNTER FOR PALLIATIVE CARE (3) Acute respiratory failure with hypoxia Status: Acute Code(s): J96.01 - ACUTE RESPIRATORY FAILURE WITH HYPOXIA (4) Pneumonia due to COVID-19 virus Status: Acute Code(s): U07.1 - COVID-19; J12.82 - PNEUMONIA DUE TO CORONAVIRUS DISEASE 2018 (5) Sepsis Status: Acute Code(s): A41.9 - SEPSIS, UNSPECIFIED ORGANISM - Note Participants: patient, palliative care Summary: Palliative care addressed Advanced Care Planning. The diagnosis, prognosis and goals of care were discussed. Appropriate forms and documentation to accomplish the goals of care were discussed. All questions were answered. Elected to complete an MPOA, Directive to physician. Notarized. Original and copy provided to patient, copy also placed on chart for medical records. Confirmed with patient MPOA, Directives and full resuscitation status. Please also see Palliative care notes in note section. Time Spent (mins): 15
[2020-12-28 18:19] LABS: Potassium 4.2 mmol/L (3.5-5.1)
[2020-12-28] MEDS: Enoxaparin Sodium 40 MG/0.4 ML SYRINGE SC SCH (20:55)
[2020-12-28] MEDS: Docusate 100 MG CAP PO SCH (20:55)
[2020-12-28] MEDS ORDERED: Aspirin 325 mg Enteric Coated Tablet PO SCH (23:15)
[2020-12-28 23:47] LABS: Band 8 % (5-11); Hemoglobin 9.5 g/dL (14.0-18.0); Hypochromia SLIGHT = 6-15 cells (100X) (0-5/hpf); Lymphocytes 16 % (21-51); MDiff Complete? YES; Mean Corpuscular HGB CONC 32.3 g/dL (32.0-36.0); Mean Corpuscular Hemoglobin 30.6 pg (27.0-31.0); Mean Corpuscular Volume 94.7 fL (78.0-98.0); Mean Platelet Volume 7.3 fL (7.4-10.4); Monocytes 2 % (0-10); Neutrophil 74 % (42-75); Platelet Count 323 thou/uL (130-400); Platelet Morphology Comment Appears Adequate; RBC Distribution Width 14.3 % (11.5-14.5); Red Blood Cell (RBC) Count 3.11 mill/uL (4.70-6.10); White Blood Cell (WBC) Count 6.9 thou/uL (4.8-10.8)
[2020-12-28 23:50] LABS: ALT (SGPT) 71 U/L (8-55); AST (SGOT) 30 U/L (5-34); Alkaline Phosphatase 110 U/L (40-110); Anion Gap 17 mmol/L (10-20); BUN (Urea Nitrogen) 12 mg/dL (8.4-25.7); Bilirubin, Total 0.5 mg/dL (0.2-1.2); Calc. Creatinine Clearance 134 mL/min (70-130); Calcium 8.1 mg/dL (7.8-10.44); Carbon Dioxide 25 mmol/L (23-31); Chloride 106 mmol/L (98-107); Glucose 128 mg/dL (80-115); Lipase 31 U/L (8-78); Potassium 3.8 mmol/L (3.5-5.1); Sodium 144 mmol/L (136-145)
[2020-12-28 23:52] LABS: Troponin I 0.014 ng/mL (< 0.028)
--- NOTE | 2020-12-28 23:52 | PDOC.EVN ---
Event Note - Event Note Event Note: Nursing called. Patient found sitting on floor beside bed, HTN SBP 170s, tachycardic 130s, tachypneic 20s, hypoxic. Complaining of substernal chest pain. Assisted into bed by nursing. BP 138/48, HR 104, RR 22, 98% 6L NC Prior to episode, nursing reported VSS, RA 98%. Patient has no history of HTN, HLD, DM. Had Covid, out of window for isolation. A: patient appears comfortable, reports chest pain has been there since admission He got weak and went down to floor, no LOC, denies hitting head. He is carrying on conversation, speaking complete sentences, NAD. - Making jokes. No focal motor deficits. Asked nursing to wean off NC, Sp02 went down to 92% RA, he is mildly tachycardic 101 HR still. Ordered EKG - ST, no ST elevation, NL axis, T inversion leads V2, V3. Trop, CXR, DD, CMP and CBC pending. STAT CTA if DD elevated which it might be due to recent Covid. Kidney fx WNL. Discussed with Dr. Barraza.
[2020-12-29] MEDS ORDERED: Enoxaparin Sodium 40 MG/0.4 ML SYRINGE SC SCH (01:30)
[2020-12-29 01:46] LABS: INR-International Normal Ratio 1.1; PTT 33.8 sec (22.9-36.1); Prothrombin Time 14.6 sec (12.0-14.7)
[2020-12-29 04:38] LABS: #Basophils 0.1 thou/uL (0.0-0.2); #Eosinphils 0.3 thou/uL (0.0-0.7); #Lymphocytes 2.4 thou/uL (1.20-3.40); #Monocytes 0.7 thou/uL (0.11-0.59); #Neutrophils 5.1 thou/uL (1.40-6.50); %Basophils 0.7 % (0.0-1.0); %Eosinophils 3.5 % (0.0-10.0); %Lymphocytes 27.5 % (21.0-51.0); %Monocytes 8.7 % (0.0-10.0); %Neutrophils 59.6 % (42.0-75.0); Hemoglobin 9.1 g/dL (14.0-18.0); Mean Corpuscular HGB CONC 32.8 g/dL (32.0-36.0); Mean Corpuscular Volume 94.6 fL (78.0-98.0); Mean Platelet Volume 7.3 fL (7.4-10.4); Platelet Count 330 thou/uL (130-400); RBC Distribution Width 14.2 % (11.5-14.5); Red Blood Cell (RBC) Count 2.92 mill/uL (4.70-6.10); White Blood Cell (WBC) Count 8.6 thou/uL (4.8-10.8)
[2020-12-29 04:56] LABS: Anion Gap 12 mmol/L (10-20); BUN (Urea Nitrogen) 11 mg/dL (8.4-25.7); Calc. Creatinine Clearance 150 mL/min (70-130); Calcium 7.9 mg/dL (7.8-10.44); Carbon Dioxide 28 mmol/L (23-31); Chloride 107 mmol/L (98-107); Glucose 94 mg/dL (80-115); Potassium 3.5 mmol/L (3.5-5.1); Sodium 143 mmol/L (136-145)
--- NOTE | 2020-12-29 06:20 | PRG ---
DATE OF SERVICE: 12/28/2020 SUBJECTIVE: Amador Ramos is a 65-year-old gentleman, post respiratory failure extubation. OBJECTIVE: VITAL SIGNS: Temperature 98, pulse 106, respirations 20, sats 100% on 2 L, blood pressure 128/70. GENERAL: Less encephalopathic. CHEST: No wheezing. No crackles. CARDIAC: Normal S1, S2. No gallops. ABDOMEN: No masses. LABORATORY DATA: Labs unremarkable. ASSESSMENT AND PLAN: Delgado positive pneumonia, respiratory failure, prolonged intubation, encephalopathy. Pulmonary camargo, I would discontinue all his daily lab. Cut back on his risperidone, PT, supportive care, eventually placement. Job ID: [id number]
--- NOTE | 2020-12-29 07:11 | RAD ---
PORTABLE CHEST: Date: 12/28/2020 HISTORY: Chest pain, shortness of breath. COVID pneumonia. COMPARISON: 12/25/2020. FINDINGS: ET tube and NG tube have been removed. Central line remains in place. Bilateral infiltrates remain. T here are focal alveolar infiltrates in the left mid lung and in the right upper and lower lung. [place] alfa right hemidiaphragm is stable. IMPRESSION: Bilateral infiltrates without significant interval change. POS: AGW
[2020-12-29] MEDS: Piperacillin/Tazobactam 3.375 GM in Sodium Chloride 0.9% 100 ML IVPB SCH ×2 (07:24→15:22)
[2020-12-29] MEDS: Mometasone 200 MCG/Formoterol 5 MCG 120 PUFF INHALER INH SCH ×2 (07:38→19:30)
[2020-12-29] MEDS: Budesonide 0.5 MG/2 ML NEB FS SCH ×2 (07:38→19:30)
[2020-12-29] MEDS: Fluconazole 100 MG TAB PO SCH (07:44)
[2020-12-29] MEDS: Enoxaparin Sodium 80 MG/0.8 ML SYRINGE SC SCH ×2 (07:44→22:52)
[2020-12-29] MEDS: Zinc Sulfate 220 MG CAP PO SCH (07:45)
[2020-12-29] MEDS: Docusate 100 MG CAP PO SCH ×2 (07:45→22:53)
[2020-12-29] MEDS: Aspirin 81 mg Enteric Coated Tablet PO SCH (07:45)
[2020-12-29] MEDS: Folic Acid 1 MG TAB PO SCH (07:45)
[2020-12-29] MEDS: predniSONE 20 MG TAB PO SCH (07:45)
[2020-12-29] MEDS: Linezolid 600 MG TAB PO SCH (07:45)
[2020-12-29] MEDS: Pantoprazole 40 MG VIAL IVP SCH ×2 (07:45→22:54)
--- NOTE | 2020-12-29 07:59 | CT ---
PRELIMINARY REPORT/[facility]/EMERGENCY AFTER HOURS PROCEDURE This report was discussed with Naila Prado by Jillian Zuniga on Dec 29, 2020 01:12:00 VAULT CASHIER. Addendum electronically signed by Jillian Zuniga on December 29, 2020 1:14:07 AM VAULT CASHIER EXAM: CTA Chest with Intravenous Contrast CLINICAL HISTORY: M63, chest pain, tachycardia TECHNIQUE: Axial CTA images of the chest with intravenous contrast. Three-dimensional MIP/volume rendered reform ations were performed. CONTRAST: With; ISOVUE COMPARISON: CT - CT ABDOMEN PELVIS W CON - 12/25/2020 12:22 AM VAULT CASHIER FINDINGS: PULMONARY ARTERIES There are a few small filling defects seen within the pulmonary arteries supplying the upper lungs. N o large main or central pulmonary emboli identified. AORTA No thoracic aortic aneurysm or dissection. LUNGS Bilateral patchy and confluent groundglass and consolidative opacities are seen throughout the lungs. There is also suggestion of mild traction bronchiectasis. PLEURAL SPACES No pleural effusion. No pneumothorax. HEART AND MEDIASTINUM No cardiomegaly. No significant pericardial effusion. LYMPH NODES No lymphadenopathy. BONES No focal osseous abnormality or acute fracture. CHEST WALL AND UPPER ABDOMEN Gallbladder is calcified. Diverticula are present. Upper abdomen is otherwise unremarkable. No focal abnormalities of the chest wall seen. There is a right-sided chest port present. IMPRESSION: Small bilateral upper lung pulmonary emboli. Diffuse bilateral mixed consolidative and groundglass patchy and confluent airspace disease with sugg estion of mild bronchiectasis. This is concerning for pneumonia. However, noninfectious etiologies may have a similar appearance. Porcelain gallbladder. ELECTRONICALLY SIGNED BY: Eduardo Mueller DO Dec 29, 2020 1:01:40 AM VAULT CASHIER This report is intended for review by the ordering physician only, in accordance of law. If you recei ve this report in error, please call [facility] at [phone]. FINAL REPORT Exam: CT angiogram of the chest HISTORY: Tachycardia. Chest pain. COMPARISON: None TECHNIQUE: CT angiogram of the chest is performed in the axial plane. Three-dimensional reformatted i mages are submitted for interpretation FINDINGS: Mediastinum: Scattered upper normal mediastinal lymph nodes. No mass or hematoma. Heart: Normal size. No significant pericardial fluid. Aorta: No aneurysm or dissection. No periaortic fat stranding. Upper solid abdominal viscera: Calcification involving the wall of the gallbladder, likely representi ng a porcelain gallbladder. Trachea and central bronchi: Patent Pleural spaces: Small left and right effusion. Lung parenchyma: Predominantly peripheral groundglass opacities, worrisome for COVID pneumonia. Pneumothorax: None Osseous structures: No lytic or blastic lesions Pulmonary arteries:There is a filling defect involving a lobar and segmental branch supplying the lef t and right upper lobe. Additional filling defects are not appreciated in the left or right pulmonary arterial system. IMPRESSION: 1. This report is in agreement with initial report by [facility]. 2. Left upper lobe pulmonary artery embolism. Right upper lobe pulmonary artery embolism. 3. Peripheral groundglass opacities. Correlate for COVID pneumonia. 4. Calcification along the wall the gallbladder. Porcelain gallbladder. Transcribed Date/Time: 12/29/2020 8:17 AM
[2020-12-29] MEDS ORDERED: Iopamidol-370 76% 500 ML 1 ML ONE (10:39)
--- NOTE | 2020-12-29 12:51 | PDOC.HOSPP ---
- Subjective Encounter Date: 12/29/20 Encounter Time: 09:45 Subjective: Patient doing well. Denies this morning any respiratory distress and shortness of breath. He said that he was about to get up and play last evening when that event happened. He just not able to stand up. I talked to Dr. Varela. Plan to send him discharge him with Andreia for 3 months. - Objective Vital Signs & Weight: Vital Signs (12 hours) Temp Pulse Pulse Pulse Resp BP BP 12/29/20 11:56 98.6 F 90 18 12/29/20 09:55 100 100 154/84 H 133/80 12/29/20 08:00 12/29/20 07:41 83 16 12/29/20 07:38 103 H 18 12/29/20 03:12 12/29/20 02:00 98.3 F 96 18 12/29/20 01:30 98.2 F 98 18 12/29/20 00:48 98.1 F 100 18 12/29/20 00:47 96 16 BP Pulse Ox Pulse Ox Pulse Ox 12/29/20 11:56 143/79 H 100 12/29/20 09:55 97 98 12/29/20 08:00 98 12/29/20 07:41 150/86 H 100 12/29/20 07:38 99 12/29/20 03:12 99 12/29/20 02:00 136/83 97 12/29/20 01:30 131/84 99 12/29/20 00:48 146/62 H 95 12/29/20 00:47 100 Weight Admit Weight 175 lb Weight 188 lb 7.924 oz Most Recent Monitor Data Heart Rate from ECG 103 NIBP 123/88 NIBP BP-Mean 99 Respiration from ECG 32 SpO2 97 I&O: 12/28/20 12/29/20 12/30/20 06:59 06:59 06:59 Intake Total 730 Output Total 810 2300 Balance -80 -2300 Result Diagrams: 12/29/20 04:11 12/29/20 04:11 Additional Labs: Accuchecks 12/28/20 22:53 POC Glucose 135 H Hospitalist ROS - Medication Medications: Active Medications Generic Name Dose Route Start Last Admin Trade Name Freq PRN Reason Stop Dose Admin Acetaminophen 650 mg 12/14/20 08:13 12/26/20 06:38 Acetaminophen 325 Mg Tab PER TUBE 650 mg Q6H PRN Administration Headache/Fever or Pain Albuterol/Ipratropium 3 ml 12/21/20 13:00 12/29/20 07:38 Ipratropium/Albuterol Sulfate 3 Ml Neb NEB 3 ml [id number] BEATRICE Administration Aspirin 81 mg 12/29/20 09:00 12/29/20 07:45 Aspirin 81 Mg Enteric Coated Tablet PO 81 mg DAILY BEATRICE Administration Budesonide 0.5 mg 12/26/20 18:30 12/29/20 07:38 Budesonide 0.5 Mg/2 Ml Neb FS 0.5 mg BID-RT BEATRICE Administration Docusate Sodium 100 mg 12/28/20 21:00 12/29/20 07:45 Docusate 100 Mg Cap PO 100 mg BID BEATRICE Administration Enoxaparin Sodium 80 mg 12/29/20 09:00 12/29/20 07:44 Enoxaparin Sodium 80 Mg/0.8 Ml Syringe SC 80 mg 0900,2100 BEATRICE Administration Fluconazole 100 mg 12/28/20 09:00 12/29/20 07:44 Fluconazole 100 Mg Tab PO 100 mg DAILY BEATRICE Administration Folic Acid 1 mg 12/27/20 09:00 12/29/20 07:45 Folic Acid 1 Mg Tab PO 1 mg DAILY BEATRICE Administration Guaifenesin/Dextromethorphan 15 ml 12/20/20 20:49 12/20/20 22:45 Guaifenesin Dm 100-10/5 Ml Udcup PO 15 ml Q4H PRN Administration Cough Piperacillin Sod/Tazobactam 100 mls @ 200 mls/hr 12/25/20 15:00 12/29/20 07:24 Sod 3.375 gm/ Sodium Chloride IVPB 100 mls Q8H BEATRICE Administration Linezolid 600 mg 12/19/20 21:00 12/29/20 07:45 Linezolid 600 Mg Tab PO 12/29/20 21:01 600 mg Q12HR BEATRICE Administration Mometasone Furoate/Formoterol Fumar 2 puff 12/06/20 18:30 12/29/20 07:38 Mometasone 200 Mcg/Formoterol 5 Mcg 120 Puff Inhaler INH 2 puff BID-RT BEATRICE Administration Morphine Sulfate 4 mg 12/25/20 05:55 12/25/20 07:02 Morphine 4 Mg/Ml Vial SLOW IVP 4 mg Q4H PRN Administration Pain Pantoprazole Sodium 40 mg 12/14/20 21:00 12/29/20 07:45 Pantoprazole 40 Mg Vial IVP 40 mg BID BEATRICE Administration Prednisone 20 mg 12/28/20 08:00 12/29/20 07:45 Prednisone 20 Mg Tab PO 20 mg QAM-WM BEATRICE Administration Risperidone 0.25 mg 12/28/20 21:00 12/28/20 20:55 Risperidone 0.25 Mg Tab PO 12/31/20 21:01 0.25 mg HS BEATRICE Administration Sodium Chloride 10 ml 12/10/20 21:00 12/29/20 07:46 Flush - Normal Saline 10 Ml Syringe IVF 10 ml Q12HR BEATRICE Administration Zinc Sulfate 220 mg 12/06/20 09:00 12/29/20 07:45 Zinc Sulfate 220 Mg Cap PO 220 mg DAILY BEATRICE Administration Hospitalist Exam Vitals: Vital Signs (12 hours) Temp Pulse Pulse Pulse Resp BP BP 12/29/20 11:56 98.6 F 90 18 12/29/20 09:55 100 100 154/84 H 133/80 12/29/20 08:00 12/29/20 07:41 83 16 12/29/20 07:38 103 H 18 12/29/20 03:12 12/29/20 02:00 98.3 F 96 18 12/29/20 01:30 98.2 F 98 18 12/29/20 00:48 98.1 F 100 18 12/29/20 00:47 96 16 BP Pulse Ox Pulse Ox Pulse Ox 12/29/20 11:56 143/79 H 100 12/29/20 09:55 97 98 12/29/20 08:00 98 12/29/20 07:41 150/86 H 100 12/29/20 07:38 99 12/29/20 03:12 99 12/29/20 02:00 136/83 97 12/29/20 01:30 131/84 99 12/29/20 00:48 146/62 H 95 12/29/20 00:47 100 Weight Admit Weight 175 lb Weight 188 lb 7.924 oz Most Recent Monitor Data Heart Rate from ECG 103 NIBP 123/88 NIBP BP-Mean 99 Respiration from ECG 32 SpO2 97 General Appearance: NAD, awake alert Eye: PERRL ENT: normocephalic atraumatic Neck: supple Heart: RRR Respiratory: CTAB Gastrointestinal: soft, normal bowel sounds Extremities: 1+ LE edema Neurological: no focal deficits Psychiatric: A&O x 3 Hosp A/P - Plan 65 year old male with no known past medical history presenting with shortness of breath, altered mental stauts and COVID. Chest X ray showed bibasilar infiltrate #Acute hypoxic respiratory failure secondary to COVID pneumonia #Staph epidermidis bacteremia - still intubated. He is currently on precedex. Blood culture shows 1/2 coag negative staph. Repeat blood cultures show 2/2 staph epidermidis. Respiratory culture unremarkable. -ID has recommended no need for antibiotics. ---------? -Pulmonary has started on linezolid on 12/19. Patient is s/p meropenem for 7 days -WBC is down to 11. Anemia - Hb 7.8, will continue to monitor for need for transfusion - check B12/folate/TSH Hypertension- -not on meds currently SAVANNAH -resolved Acute GI bleed -coffee ground material in NG tube on 12/15. -He is s/p endoscopy showing ulcers. Continue protonix 40 mg IV Bid. -Biopsy showed chronic inactive gastritis with intestinal metaplasia with focal mild dysplasia History of COPD - continue dulera and steroids Ct abd/pelvis "Part of the bladder being herniated soft tissue stranding with in the hernia sac concern for ischemic changes rest of the bladder wall thickening and soft tissue stranding with a dependent hematoma ongoing Pneumonia/ARDS Possible porcelain gallbladder NG tube over in the duodenum ----repositioning advised. -Given the significant nature of the complexity, I will broaden the antibiotic for now from infectious point of view. -Blood cultures are ordered along with the Zyvox, Zosyn ordered. Hematoma Probable ischemic bowel and bladder Patient currently in the OR -Appreciate the help from urologist and surgery Overall his condition is critical We will request the palliative care to be involved to coordinate with the family regarding the complexity of his clinical conditions[s] as well as his CODE STATUS. Dispo: continue weaning of ventilator per pulmonary -Status post open repair of incarcerated left inguinal hernia with mesh and repair of incarcerated bladder hernia on Acute blood loss anemia due to hematoma in the visceral area -Packed RBCs being transfused today Mild hypokalemia Folic acid deficiency being supplemented Status post extubation on -Stable to transfer to medical floor -Hemoglobin at 8.5 after the transfusion yesterday. Folic acid deficiency--- being supplemented Ongoing PT evaluation and treatment Patient is more oriented and cooperating today. Plan is to follow with Dr. Aldana urologist regarding his Sanchez catheter. He would benefit with rehab placement. Shortness of breath and respiratory distress last evening. New small filling defect in the pulmonary artery left upper lobe pulmonary artery embolism peripheral groundglass opacities Porcelain gallbladder -Possible large gallstone versus sludge in the gallbladder -Dr. Duvall recommended follow-up endoscopy in 6 weeks to confirm the healing of duodenal ulcer and rule out malignancy H. pylori negative -He is getting full dose Lovenox for pulmonary embolism I will switch him to Eliquis twice a day for 3 months duration starting tomorrow. His kidney function normal. Placed a consult for case management for possible placement.
--- NOTE | 2020-12-29 17:06 | EKG ---
Test Reason : Blood Pressure : / mmHG Vent. Rate : 103 BPM Atrial Rate : 103 BPM P-R Int : 148 ms QRS Dur : 088 ms QT Int : 378 ms P-R-T Axes : 030 035 030 degrees QTc Int : 495 ms Sinus tachycardia Possible Left atrial enlargement Possible Anterior infarct (cited on or before 05-DEC-2020) Abnormal ECG When compared with ECG of 05-DEC-2020 17:03, T wave inversion now evident in Anterior leads Confirmed by DR. Lm CHANDLER (3) on 12/29/2020 5:06:10 PM Referred By: CR Confirmed By:DR. Lm CHANDLER
--- NOTE | 2020-12-29 18:15 | PRG ---
DATE OF SERVICE: 12/29/2020 SUBJECTIVE: The patient was transferred to [facility]. He is being transferred to rehab actually soon. No shortness of breath or abdominal pain. He has a Sanchez catheter. OBJECTIVE: He has nasal cannula O2, saturating 100% on 2 L. His temperature is normal. He had temperature elevation of 101 on the 25th and cultures were taken likely Eva identified. Cultures in progress. CT angio showed pulmonary emboli in the left upper lobe pulmonary artery and right upper lobe pulmonary artery as well. The patient is currently on Diflucan, linezolid, Zosyn, prednisone. He is on enoxaparin as well. ASSESSMENT: Severe COVID pneumonia, requiring mechanical ventilation, now he is extubated, and he has a line colonization by yeast and needs to be removed before transfer to rehab. I do not think he needs the line anymore. He can have those whatever IV medication he gets administered by different route. Most of those can be given orally. Anyway, we will discontinue Zosyn and linezolid. Leave him on Diflucan 400 mg daily. He should take another 3 weeks of Diflucan. No evidence of endophthalmitis at this point in time. Job ID: [id number] [facility]
[2020-12-29] MEDS: risperiDONE 0.25 MG TAB PO SCH (22:53)
[2020-12-30] MEDS: Nitroglycerin 0.4 MG TAB (25 Tab Bottle) SL PRN ×3 (00:57→01:17)
[2020-12-30 02:08] LABS: Hemoglobin 9.3 g/dL (14.0-18.0); Mean Corpuscular HGB CONC 32.3 g/dL (32.0-36.0); Mean Corpuscular Hemoglobin 30.6 pg (27.0-31.0); Mean Corpuscular Volume 94.8 fL (78.0-98.0); Mean Platelet Volume 6.6 fL (7.4-10.4); Platelet Count 393 thou/uL (130-400); RBC Distribution Width 14.1 % (11.5-14.5); Red Blood Cell (RBC) Count 3.02 mill/uL (4.70-6.10); White Blood Cell (WBC) Count 8.7 thou/uL (4.8-10.8)
[2020-12-30 02:22] LABS: Lactic Acid 1.1 mmol/L (0.5-2.2)
[2020-12-30 02:26] LABS: Band 5 % (5-11); Eosinophils 1 % (0-10); Lymphocytes 27 % (21-51); MDiff Complete? YES; Metamyelocyte 1 % (0-0); Monocytes 8 % (0-10); Myelocyte 2 % (0-0); Neutrophil 56 % (42-75)
[2020-12-30 02:29] LABS: ALT (SGPT) 78 U/L (8-55); AST (SGOT) 35 U/L (5-34); Albumin 2.8 g/dL (3.4-4.8); Alkaline Phosphatase 114 U/L (40-110); Anion Gap 18 mmol/L (10-20); BUN (Urea Nitrogen) 9 mg/dL (8.4-25.7); Bilirubin, Total 0.5 mg/dL (0.2-1.2); Calc. Creatinine Clearance 152 mL/min (70-130); Calcium 7.8 mg/dL (7.8-10.44); Carbon Dioxide 25 mmol/L (23-31); Chloride 106 mmol/L (98-107); Globulin 2.8 g/dL (2.4-3.5); Glucose 92 mg/dL (80-115); Magnesium 1.7 mg/dL (1.6-2.6); Potassium 3.5 mmol/L (3.5-5.1); Protein, Total 5.6 g/dL (5.8-8.1); Sodium 145 mmol/L (136-145)
[2020-12-30] MEDS ORDERED: Morphine 2 MG/ML VIAL SLOW IVP SCH (03:00)
[2020-12-30] MEDS ORDERED: Haloperidol Lactate 5 MG/ML VIAL SLOW IVP PRN (04:56)
[2020-12-30] MEDS ORDERED: Lorazepam 2 MG/ML VIAL SLOW IVP PRN (04:57)
--- NOTE | 2020-12-30 06:03 | PRG ---
DATE OF SERVICE: 12/29/2020 SUBJECTIVE: Amador Ramos is a 65-year-old male with gong positive pneumonia, post respiratory failure, post extubation, became more encephalopathic, confused last night. He had a CT angio done, which showed small peripheral pulmonary emboli. OBJECTIVE: VITAL SIGNS: Saturations 98% on 2 L, pulse 73, blood pressure 150/86. CHEST: No wheezing, no crackles. CARDIAC: Normal S1. ABDOMEN: No masses. LABORATORY DATA: Unremarkable. ASSESSMENT: Gong positive pneumonia, status post respiratory failure, status post encephalopathy. He was started on full-dose Lovenox yesterday as per the report. I probably would switch him over to p.o. Eliquis tomorrow. Discontinue all antibiotics, supportive care, PT. CT did show bilateral ground-glass opacity, part of his gong positive infection. Job ID: [id number]
[2020-12-30] MEDS: Budesonide 0.5 MG/2 ML NEB FS SCH (08:09)
[2020-12-30] MEDS: Mometasone 200 MCG/Formoterol 5 MCG 120 PUFF INHALER INH SCH ×2 (08:21→18:25)
[2020-12-30] MEDS: Fluconazole 100 MG TAB PO SCH (09:06)
[2020-12-30] MEDS: Aspirin 81 mg Enteric Coated Tablet PO SCH (09:06)
[2020-12-30] MEDS: Zinc Sulfate 220 MG CAP PO SCH (09:07)
[2020-12-30] MEDS: Apixaban 5 MG TAB PO SCH ×2 (09:07→21:38)
[2020-12-30] MEDS: Pantoprazole 40 MG VIAL IVP SCH ×2 (09:07→21:38)
[2020-12-30] MEDS: predniSONE 20 MG TAB PO SCH (09:07)
[2020-12-30] MEDS: Folic Acid 1 MG TAB PO SCH (09:07)
[2020-12-30] MEDS: Docusate 100 MG CAP PO SCH ×2 (09:07→21:38)
--- NOTE | 2020-12-30 10:24 | PRG ---
DATE OF SERVICE: 12/30/2020 SUBJECTIVE: Amador Ramos is still having some problems with nighttime encephalopathy. He is clearly, pulmonary [place], much improved. No coughing. No wheezing. He has switched over to oral Eliquis secondary to bilateral pulmonary emboli. He is still got a rather extensive fibrosis on his x-ray. OBJECTIVE: VITAL SIGNS: Temperature 98, pulse 109, respirations 20, saturations 98% on 1 L, blood pressure 137/90. CHEST: No wheezing, no crackles. CARDIAC: Normal S1. ABDOMEN: No masses. LABORATORY DATA: Unremarkable. ASSESSMENT: Delgado positive pneumonia, respiratory failure, encephalopathy. PLAN: He is ready to be discharged home placement. Tapering steroids over 2 weeks. Job ID: [id number]
--- NOTE | 2020-12-30 14:55 | PDOC.HOSPP ---
- Subjective Encounter Date: 12/30/20 Encounter Time: 09:45 Subjective: Patient doing well. We will switch to Lovenox to Eliquis at this morning. - Objective Vital Signs & Weight: Vital Signs (12 hours) Temp Pulse Resp BP Pulse Ox 12/30/20 13:56 96 16 12/30/20 11:15 98.3 F 101 H 29 H 130/77 100 12/30/20 08:50 98.5 F 109 H 20 137/90 96 12/30/20 08:09 106 H 20 12/30/20 03:16 97.9 F 96 20 157/80 H 100 Weight Admit Weight 175 lb Weight 188 lb 7.924 oz Most Recent Monitor Data Heart Rate from ECG 103 NIBP 123/88 NIBP BP-Mean 99 Respiration from ECG 32 SpO2 97 I&O: 12/29/20 12/30/20 12/31/20 06:59 06:59 06:59 Intake Total 1110 Output Total 2300 1675 Balance -2300 -565 Result Diagrams: 12/30/20 01:59 12/30/20 01:59 Additional Labs: Accuchecks 12/30/20 12:02 POC Glucose 162 H Hospitalist ROS - Medication Medications: Active Medications Generic Name Dose Route Start Last Admin Trade Name Freq PRN Reason Stop Dose Admin Acetaminophen 650 mg 12/14/20 08:13 12/26/20 06:38 Acetaminophen 325 Mg Tab PER TUBE 650 mg Q6H PRN Administration Headache/Fever or Pain Albuterol/Ipratropium 3 ml 12/21/20 13:00 12/30/20 13:56 Ipratropium/Albuterol Sulfate 3 Ml Neb NEB 3 ml [id number] BEATRICE Administration Apixaban 5 mg 12/30/20 09:00 12/30/20 09:07 Apixaban 5 Mg Tab PO 5 mg BID BEATRICE Administration Aspirin 81 mg 12/29/20 09:00 12/30/20 09:06 Aspirin 81 Mg Enteric Coated Tablet PO 81 mg DAILY BEATRICE Administration Docusate Sodium 100 mg 12/28/20 21:00 12/30/20 09:07 Docusate 100 Mg Cap PO 100 mg BID BEATRICE Administration Fluconazole 400 mg 12/30/20 09:00 12/30/20 09:06 Fluconazole 100 Mg Tab PO 400 mg DAILY BEATRICE Administration Folic Acid 1 mg 12/27/20 09:00 12/30/20 09:07 Folic Acid 1 Mg Tab PO 1 mg DAILY BEATRICE Administration Guaifenesin/Dextromethorphan 15 ml 12/20/20 20:49 12/20/20 22:45 Guaifenesin Dm 100-10/5 Ml Udcup PO 15 ml Q4H PRN Administration Cough Mometasone Furoate/Formoterol Fumar 2 puff 12/06/20 18:30 12/30/20 08:21 Mometasone 200 Mcg/Formoterol 5 Mcg 120 Puff Inhaler INH 2 puff BID-RT BEATRICE Administration Morphine Sulfate 4 mg 12/25/20 05:55 12/25/20 07:02 Morphine 4 Mg/Ml Vial SLOW IVP 4 mg Q4H PRN Administration Pain Nitroglycerin 0.4 mg 12/05/20 23:29 12/30/20 01:17 Nitroglycerin 0.4 Mg Tab (25 Tab Bottle) SL 0.4 mg Q5MIN PRN Administration Chest Pain Pantoprazole Sodium 40 mg 12/14/20 21:00 12/30/20 09:07 Pantoprazole 40 Mg Vial IVP 40 mg BID BEATRICE Administration Prednisone 20 mg 12/28/20 08:00 12/30/20 09:07 Prednisone 20 Mg Tab PO 20 mg QAM-WM BEATRICE Administration Risperidone 0.25 mg 12/28/20 21:00 12/29/20 22:53 Risperidone 0.25 Mg Tab PO 12/31/20 21:01 0.25 mg HS BEATRICE Administration Sodium Chloride 10 ml 12/10/20 21:00 12/30/20 09:08 Flush - Normal Saline 10 Ml Syringe IVF 10 ml Q12HR BEATRICE Administration Zinc Sulfate 220 mg 12/06/20 09:00 12/30/20 09:07 Zinc Sulfate 220 Mg Cap PO 220 mg DAILY BEATRICE Administration Hospitalist Exam Vitals: Vital Signs (12 hours) Temp Pulse Resp BP Pulse Ox 12/30/20 13:56 96 16 12/30/20 11:15 98.3 F 101 H 29 H 130/77 100 12/30/20 08:50 98.5 F 109 H 20 137/90 96 12/30/20 08:09 106 H 20 12/30/20 03:16 97.9 F 96 20 157/80 H 100 Weight Admit Weight 175 lb Weight 188 lb 7.924 oz Most Recent Monitor Data Heart Rate from ECG 103 NIBP 123/88 NIBP BP-Mean 99 Respiration from ECG 32 SpO2 97 General Appearance: NAD, awake alert Eye: PERRL ENT: normocephalic atraumatic Neck: supple Heart: RRR Respiratory: CTAB, normal chest expansion Neurological: normal sensation to touch, no focal deficits Psychiatric: A&O x 3 Hosp A/P - Plan 65 year old male with no known past medical history presenting with shortness of breath, altered mental stauts and COVID. Chest X ray showed bibasilar infiltrate #Acute hypoxic respiratory failure secondary to COVID pneumonia #Staph epidermidis bacteremia - still intubated. He is currently on precedex. Blood culture shows 1/2 coag negative staph. Repeat blood cultures show 2/2 staph epidermidis. Respiratory culture unremarkable. -ID has recommended no need for antibiotics. ---------? -Pulmonary has started on linezolid on 12/19. Patient is s/p meropenem for 7 days -WBC is down to 11. Anemia - Hb 7.8, will continue to monitor for need for transfusion - check B12/folate/TSH Hypertension- -not on meds currently SAVANNAH -resolved Acute GI bleed -coffee ground material in NG tube on 12/15. -He is s/p endoscopy showing ulcers. Continue protonix 40 mg IV Bid. -Biopsy showed chronic inactive gastritis with intestinal metaplasia with focal mild dysplasia History of COPD - continue dulera and steroids Ct abd/pelvis "Part of the bladder being herniated soft tissue stranding with in the hernia sac concern for ischemic changes rest of the bladder wall thickening and soft tissue stranding with a dependent hematoma ongoing Pneumonia/ARDS Possible porcelain gallbladder NG tube over in the duodenum ----repositioning advised. -Given the significant nature of the complexity, I will broaden the antibiotic for now from infectious point of view. -Blood cultures are ordered along with the Zyvox, Zosyn ordered. Hematoma Probable ischemic bowel and bladder Patient currently in the OR -Appreciate the help from urologist and surgery Overall his condition is critical We will request the palliative care to be involved to coordinate with the family regarding the complexity of his clinical conditions[s] as well as his CODE STATUS. Dispo: continue weaning of ventilator per pulmonary 25th -Status post open repair of incarcerated left inguinal hernia with mesh and repair of incarcerated bladder hernia on Acute blood loss anemia due to hematoma in the visceral area -Packed RBCs being transfused today Mild hypokalemia Folic acid deficiency being supplemented Status post extubation on -Stable to transfer to medical floor -Hemoglobin at 8.5 after the transfusion yesterday. Folic acid deficiency--- being supplemented Ongoing PT evaluation and treatment Patient is more oriented and cooperating today. Plan is to follow with Dr. Aldana urologist regarding his Sanchez catheter. He would benefit with rehab placement. Shortness of breath and respiratory distress last evening. New small filling defect in the pulmonary artery left upper lobe pulmonary artery embolism peripheral groundglass opacities Porcelain gallbladder -Possible large gallstone versus sludge in the gallbladder -Dr. Duvall recommended follow-up endoscopy in 6 weeks to confirm the healing of duodenal ulcer and rule out malignancy H. pylori negative -He is getting full dose Lovenox for pulmonary embolism I will switch him to Eliquis twice a day for 3 months duration starting tomorrow. His kidney function normal. Placed a consult for case management for possible placement. Placed a consult for case management for possible placement. Plan is to follow with Dr. Aldana urologist regarding his Sanchez catheter. Keep the Sanchez upon discharge.
--- NOTE | 2020-12-30 15:58 | EKG ---
Test Reason : STAT Blood Pressure : / mmHG Vent. Rate : 095 BPM Atrial Rate : 095 BPM P-R Int : 148 ms QRS Dur : 084 ms QT Int : 378 ms P-R-T Axes : 033 036 032 degrees QTc Int : 475 ms Normal sinus rhythm Possible Left atrial enlargement Anterior infarct (cited on or before 05-DEC-2020) Abnormal ECG When compared with ECG of 28-DEC-2020 23:04, No significant change was found Confirmed by DR. Lm CHANDLER (3) on 12/30/2020 3:58:08 PM Referred By: [email or web address] Confirmed By:DR. Lm CHANDLER
[2020-12-30] MEDS: risperiDONE 0.25 MG TAB PO SCH (21:38)
[2020-12-31] MEDS: Acetaminophen 325 MG TAB PER TUBE PRN (03:58)
[2020-12-31] MEDS: Pantoprazole 40 MG VIAL IVP SCH (07:57)
[2020-12-31] MEDS: Aspirin 81 mg Enteric Coated Tablet PO SCH (07:58)
[2020-12-31] MEDS: Fluconazole 100 MG TAB PO SCH (07:58)
[2020-12-31] MEDS: predniSONE 20 MG TAB PO SCH (07:58)
[2020-12-31] MEDS: Folic Acid 1 MG TAB PO SCH (07:58)
[2020-12-31] MEDS: Docusate 100 MG CAP PO SCH (07:58)
[2020-12-31] MEDS: Zinc Sulfate 220 MG CAP PO SCH (07:58)
[2020-12-31] MEDS: Apixaban 5 MG TAB PO SCH (07:58)
[2020-12-31] MEDS: Mometasone 200 MCG/Formoterol 5 MCG 120 PUFF INHALER INH SCH ×2 (10:35→19:17)
--- NOTE | 2020-12-31 13:16 | PDOC.HOSPP ---
- Subjective Encounter Date: 12/31/20 Encounter Time: 13:14 Subjective: Mr. Ramos was seen today in follow-up of COVID pneumonia and generalized weakness. He does not have any complaints. He is still very weak. He has been able to stand for a few minutes with assistance. - Objective Vital Signs & Weight: Vital Signs (12 hours) Temp Pulse Pulse Pulse Resp BP BP 12/31/20 11:10 97.7 F 101 H 22 H 12/31/20 10:55 101 H 112 H 138/88 134/89 12/31/20 10:12 104 H 16 12/31/20 07:53 12/31/20 07:51 97.8 F 93 20 12/31/20 03:48 98.3 F 88 20 BP Pulse Ox Pulse Ox Pulse Ox 12/31/20 11:10 134/89 99 12/31/20 10:55 97 98 12/31/20 10:12 12/31/20 07:53 100 12/31/20 07:51 140/84 100 12/31/20 03:48 144/86 H 100 Weight Admit Weight 175 lb Weight 188 lb 7.924 oz Most Recent Monitor Data Heart Rate from ECG 103 NIBP 123/88 NIBP BP-Mean 99 Respiration from ECG 32 SpO2 97 I&O: 12/30/20 12/31/20 01/01/21 06:59 06:59 06:59 Intake Total 1110 1060 Output Total 1675 925 Balance -565 135 Result Diagrams: 12/30/20 01:59 12/30/20 01:59 Hospitalist ROS - Medication Medications: Active Medications Generic Name Dose Route Start Last Admin Trade Name Freq PRN Reason Stop Dose Admin Acetaminophen 650 mg 12/14/20 08:13 12/31/20 03:58 Acetaminophen 325 Mg Tab PER TUBE 650 mg Q6H PRN Administration Headache/Fever or Pain Albuterol/Ipratropium 3 ml 12/21/20 13:00 12/31/20 10:12 Ipratropium/Albuterol Sulfate 3 Ml Neb NEB 3 ml [id number] BEATRICE Administration Apixaban 5 mg 12/30/20 09:00 12/31/20 07:58 Apixaban 5 Mg Tab PO 5 mg BID BEATRICE Administration Aspirin 81 mg 12/29/20 09:00 12/31/20 07:58 Aspirin 81 Mg Enteric Coated Tablet PO 81 mg DAILY BEATRICE Administration Docusate Sodium 100 mg 12/28/20 21:00 12/31/20 07:58 Docusate 100 Mg Cap PO 100 mg BID BEATRICE Administration Fluconazole 400 mg 12/30/20 09:00 12/31/20 07:58 Fluconazole 100 Mg Tab PO 400 mg DAILY BEATRICE Administration Folic Acid 1 mg 12/27/20 09:00 12/31/20 07:58 Folic Acid 1 Mg Tab PO 1 mg DAILY BEATRICE Administration Guaifenesin/Dextromethorphan 15 ml 12/20/20 20:49 12/20/20 22:45 Guaifenesin Dm 100-10/5 Ml Udcup PO 15 ml Q4H PRN Administration Cough Mometasone Furoate/Formoterol Fumar 2 puff 12/06/20 18:30 12/31/20 10:35 Mometasone 200 Mcg/Formoterol 5 Mcg 120 Puff Inhaler INH 2 puff BID-RT BEATRICE Administration Morphine Sulfate 4 mg 12/25/20 05:55 12/25/20 07:02 Morphine 4 Mg/Ml Vial SLOW IVP 4 mg Q4H PRN Administration Pain Nitroglycerin 0.4 mg 12/05/20 23:29 12/30/20 01:17 Nitroglycerin 0.4 Mg Tab (25 Tab Bottle) SL 0.4 mg Q5MIN PRN Administration Chest Pain Pantoprazole Sodium 40 mg 12/14/20 21:00 12/31/20 07:57 Pantoprazole 40 Mg Vial IVP 40 mg BID BEATRICE Administration Prednisone 20 mg 12/28/20 08:00 12/31/20 07:58 Prednisone 20 Mg Tab PO 20 mg QAM-WM BEATRICE Administration Risperidone 0.25 mg 12/28/20 21:00 12/30/20 21:38 Risperidone 0.25 Mg Tab PO 12/31/20 21:01 0.25 mg HS BEATRICE Administration Sodium Chloride 10 ml 12/10/20 21:00 12/31/20 07:59 Flush - Normal Saline 10 Ml Syringe IVF 10 ml Q12HR BEATRICE Administration Zinc Sulfate 220 mg 12/06/20 09:00 12/31/20 07:58 Zinc Sulfate 220 Mg Cap PO 220 mg DAILY BEATRICE Administration Hospitalist Exam Vitals: Vital Signs (12 hours) Temp Pulse Pulse Pulse Resp BP BP 12/31/20 11:10 97.7 F 101 H 22 H 12/31/20 10:55 101 H 112 H 138/88 134/89 12/31/20 10:12 104 H 16 12/31/20 07:53 12/31/20 07:51 97.8 F 93 20 12/31/20 03:48 98.3 F 88 20 BP Pulse Ox Pulse Ox Pulse Ox 12/31/20 11:10 134/89 99 12/31/20 10:55 97 98 12/31/20 10:12 12/31/20 07:53 100 12/31/20 07:51 140/84 100 12/31/20 03:48 144/86 H 100 Weight Admit Weight 175 lb Weight 188 lb 7.924 oz Most Recent Monitor Data Heart Rate from ECG 103 NIBP 123/88 NIBP BP-Mean 99 Respiration from ECG 32 SpO2 97 Eye: PERRL, anicteric sclera Heart: RRR, no murmur, no gallops, no rubs, normal peripheral pulses Respiratory: CTAB (with some faint rales at the bases), no wheezes, no ronchi, no tachypnea Gastrointestinal: soft, non-tender, non-distended, normal bowel sounds, no palpable masses, no hepatomegaly Extremities: no cyanosis (palpable pulses bilaterally, no skin lesions), no edema Hosp A/P (1) Pneumonia due to COVID-19 virus Code(s): U07.1 - COVID-19; J12.82 - PNEUMONIA DUE TO CORONAVIRUS DISEASE 2019 Status: Acute (2) Physical deconditioning Code(s): R53.81 - OTHER MALAISE Status: Chronic - Plan * Pneumonia due to COVID -19- he has had a long hospital course, and is now extubated, and off isolation * He has been rendered severely deconditioned as a result of the COVID-19 infection. Continue PT/OT and awaiting Rehab placement
[2020-12-31 15:06] VITALS: BP 144/87; TEMP 98
--- NOTE | 2020-12-31 16:02 | PRG ---
DATE OF SERVICE: 12/31/2020 SUBJECTIVE: The patient is doing reasonably well at this time, has no acute complaints other than he wants his Sanchez catheter out. OBJECTIVE: VITAL SIGNS: Temperature 98, pulse 108, blood pressure 144/87, O2 sat 100%. HEENT: Unremarkable. NECK: No JVD. CHEST: Clear. CARDIAC: S1 and S2, regular. ABDOMEN: Soft. EXTREMITIES: No edema. ASSESSMENT: Post COVID pneumonia. PLAN: 1. I would leave him anticoagulated for few more weeks. 2. Wean his steroids slowly over a couple of weeks and then discontinue. No further recommendations. I am told he is going to rehab. Job ID: [id number]
--- NOTE | 2020-12-31 16:41 | PDOC.DS.DS ---
Provider Date of Admission: 12/05/20 18:20 Date of Discharge: 12/31/20 Admitting Provider: Gabriel Dewey MD Consultations: Cardiology, Gastroentrology, Infectious Disease, Nephrology Primary Care Physician: Unknown Course Hospital Course: Mr. Ramos is a pleasant 65-year-old gentleman that has a history of actually no known past medical history. He presented to the emergency room after he had progressive shortness of breath as well as confusion. He had reportedly been diagnosed with COVID-19 infection about 13 days prior to admission. On arrival in the ER he was markedly confused and unable to give a history but was noted to be hypoxic requiring BiPAP. He was subsequently admitted to the hospital pulmonology as well as cardiology was consulted initially due to an elevated troponin and also for concern for the severity of the Covid infection. He was treated with IV Decadron as well as supportive measures. He ultimately required mechanical ventilation. He remained on the ventilator for many days and thankfully was able to be weaned off the ventilator and transitioned out of the ICU. As a result of the COVID-19 infection he suffered with acute kidney injury which resolved by the time of discharge. He also was markedly deconditioned as a result of his prolonged hospital stay. For this reason he was transitioned to inpatient rehab for further supportive and rehabilitative treatment. Procedures: CTA of Chest CTA abdomen and pelvis Abdominal Ultrasound Upper Endoscopy Resuscitation Status: 12/05/20 23:25 Resuscitation Status Routine Resuscitation Status: FULL: Full Resuscitation Additional comments: unable to discussed as pt is confused Lab Results: 12/30/20 01:59 12/30/20 01:59 Abnormal Lab Results - Last 48 hrs 12/30/20 01:59: Creatinine 0.60 L, AST 35 H, ALT 78 H, Alkaline Phosphatase 114 H, Serum Total Protein 5.6 L, Albumin 2.8 L, Albumin/Globulin Ratio 1.0 L 12/30/20 01:59: B-Natriuretic Peptide 172.4 H 12/30/20 01:59: RBC 3.02 L, Hgb 9.3 L, Hct 28.7 L, MPV 6.6 L, Myelocytes % 2 H Microbiology - Entire Visit 12/25/20 16:46 Venous blood - Right Arm Blood Culture - Final Yeast species 12/25/20 16:45 Central Line - Right Subclavian Vein Blood Culture - Final Yeast species 12/23/20 14:36 Venous blood - Right Hand Blood Culture - Final NO GROWTH IN 5 DAYS 12/23/20 14:32 Venous blood - Right Hand Blood Culture - Final NO GROWTH IN 5 DAYS 12/17/20 18:14 Venous blood - Right Hand Blood Culture - Final Staphylococcus epidermidis 12/17/20 18:14 Venous blood - Right Arm Blood Culture - Final Staphylococcus epidermidis 12/15/20 18:35 Sputum Respiratory Culture - Final 12/05/20 17:17 Venous blood - Left Arm Blood Culture - Final NO GROWTH IN 5 DAYS 12/05/20 17:17 Venous blood - Right Arm Blood Culture - Final Coagulase Neg Staphylococcus Coagulase Neg Staphylococcus#2 Coagulase Neg Staphylococcus#3 12/05/20 17:30 Urine Straight Catheter Urine Culture - Final NO GROWTH AT 48 HOURS Vitals: Vital Signs (12 hours) Temp Pulse Pulse Pulse Resp BP BP 12/31/20 15:03 98.0 F 108 H 23 H 12/31/20 14:56 104 H 20 12/31/20 11:10 97.7 F 101 H 22 H 12/31/20 10:55 101 H 112 H 138/88 134/89 12/31/20 10:12 104 H 16 12/31/20 07:53 12/31/20 07:51 97.8 F 93 20 BP Pulse Ox Pulse Ox Pulse Ox 12/31/20 15:03 144/87 H 100 12/31/20 14:56 12/31/20 11:10 134/89 99 12/31/20 10:55 97 98 12/31/20 10:12 12/31/20 07:53 100 12/31/20 07:51 140/84 100 Weight Admit Weight 175 lb Weight 188 lb 7.924 oz Most Recent Monitor Data Heart Rate from ECG 103 NIBP 123/88 NIBP BP-Mean 99 Respiration from ECG 32 SpO2 97 Physical Exam: The patient was seen and examined on the day of discharge. Problem (1) Pneumonia due to COVID-19 virus Code(s): U07.1 - COVID-19; J12.82 - PNEUMONIA DUE TO CORONAVIRUS DISEASE 2019 Status: Acute (2) Physical deconditioning Code(s): R53.81 - OTHER MALAISE Status: Chronic Plan Prescriptions: Pantoprazole [Protonix] 40 mg PO BID #60 tab Home Medications: Medication Instructions Recorded Confirmed Type Apixaban [Eliquis] 5 mg PO BID tab 12/31/20 Rx Aspirin [Ecotrin Low Strength] 81 mg PO DAILY tab 12/31/20 Rx Docusate [Colace] 100 mg PO BID cap 12/31/20 Rx Fluconazole [Diflucan] 400 mg PO DAILY tab 12/31/20 Rx Folic Acid [Folvite] 1 mg PO DAILY tab 12/31/20 Rx Guaifenesin DM 100-10 [Robitussin 15 ml PO Q4H PRN ml 12/31/20 Rx DM] Mometasone/Formoterol 200/5 2 puff INH BID-RT inh 12/31/20 Rx [Dulera 200 Mcg/5 Mcg Inhaler] Pantoprazole [Protonix] 40 mg PO BID #60 tab 12/31/20 Rx Zinc Sulfate 220 mg PO DAILY cap 12/31/20 Rx predniSONE 20 mg PO QAM-WM tab 12/31/20 Rx risperiDONE [RisperDAL] 0.25 mg PO HS tab 12/31/20 Rx Allergies: No Known Allergies Allergy (Verified 12/05/20 22:15) Activity:: Activity as Tolerated Nourishment:: Heart Healthy Diet Referrals: Unknown,Unknown [Primary Care Provider] - Disposition: REHABILITATION INPATIENT Quality CORE MEASURES:: N/A
--- NOTE | 2021-01-03 17:38 | PQF ---
Dear : Gabriel Dewey Date 01/03/2021 Please exercise your independent, professional judgment in responding to the clarification form. Clinical indicators are provided on the bottom of this form for your review Based on your clinical judgment, can you please specify the infectious status of this patient? Please check appropriate box(es): [ X ] Sepsis due to COVID19 Pneumonia [ ] Severe sepsis [ ] Localized infection without sepsis [ ] Other diagnosis [ ] Unable to determine Physician Signature: Date/Time: For continuity of documentation, please document condition throughout progress notes and discharge summary. Thank You. To be completed by CDI/Coding staff for physician review: Present Clinical Indicators - Signs / Symptoms / Labs Results and Location in Medical Record [ x ] VS: BP: 106/79, Pulse 142. RR: 50 T: ED Provider pg.1 [ x ] Tachycardia ED Provider pg.2 [ x ] Sepsis and SIRS considered, no evidence of overt septic shock at this time ED Provider pg.3 [ x ] Sepsis ED Provider pg.3 [ x ] Altered mental status H and P pg.1 [ x ] Acute respiratory failure H and P pg.2 [ x ] Hypotension- improving r/o sepsis H and P pg.4 [ x ] sepsis 2/2 ischemic bowel/bladder, staph bacteremia Hospitalist PN pg., 12/25 [ x ] Possibly sepsis PN 12/21 pg.1 [ x ] WBC: 28.9H, 30.7H, 27.8H, 20.5H, 18.6H, 18.5H, 22.1H, 19.1H, 21.3H, 19.6H, 26.9H, 39.1H, 30.8H Laboratory [ x ] Lactic acid 5.1H, 2.2, 1.1 Laboratory [ x ] Blood culture coagulase neg staph Microbiology 12/05 [ x ] Blood culture staph epidermidis Microbiology 12/17 Present Risk Factors Results and Location in Medical Record [ x ] COVID Pneumonia H and P pg.2 [ x ] 65 years old H and P pg.1 [ x ] COPD ED Provider pg.1 Present Treatments Results and Location in Medical Record [ x ] Pulmonary Consult DR. Varela 12/06 [ x ] Infectious Consult Dr. Huizar 12/19 [ x ] IV fluids [ x ] IV Antibiotic [ x ] Intubation/ mechanical ventilation PN 12/11 pg.1 [ x ] Levophed 250ml IV MAR CDS/Electronics Maintenance Technician Signature: Deandre Avilez Phone #: ext [phone] Date 01/03/2021 This is a permanent part of the Medical Record [facility]
== END 2020-12-31 20:05 | DRG 853 ==
LOC: EDBD 16:55 → ERS 16:55 → IMCU/EMU 17:55 → T4-B 12-27 16:15 → 2NO 12-29 02:09
PROVIDERS: ADMIT Internal Medicine; ATTEND Internal Medicine
PROC: 8E0ZXY6 Isolation (ICD-10-PCS; 2020-12-05)
PROC: 5A09457 Assistance with Respiratory Ventilation, 24-96 Consecutive Hours, Continuous Positive Airway Pressure (ICD-10-PCS; 2020-12-05)
PROC: 5A1955Z Respiratory Ventilation, Greater than 96 Consecutive Hours (ICD-10-PCS; 2020-12-10)
PROC: 0BH17EZ Insertion of Endotracheal Airway into Trachea, Via Natural or Artificial Opening (ICD-10-PCS; 2020-12-10)
PROC: 0DB68ZX Excision of Stomach, Via Natural or Artificial Opening Endoscopic, Diagnostic (ICD-10-PCS; 2020-12-15)
PROC: 30233N1 Transfusion of Nonautologous Red Blood Cells into Peripheral Vein, Percutaneous Approach (ICD-10-PCS; 2020-12-15)
PROC: 3E033XZ Introduction of Vasopressor into Peripheral Vein, Percutaneous Approach (ICD-10-PCS; 2020-12-15)
PROC: 0YU60JZ Supplement Left Inguinal Region with Synthetic Substitute, Open Approach (ICD-10-PCS; principal; 2020-12-25)
PROC: 0TCB8ZZ Extirpation of Matter from Bladder, Via Natural or Artificial Opening Endoscopic (ICD-10-PCS; 2020-12-25)
DX: A41.89 Other specified sepsis (principal); U07.1 COVID-19; J12.82 Pneumonia due to coronavirus disease 2019; J80 Acute respiratory distress syndrome; I21.A1 Myocardial infarction type 2; N17.0 Acute kidney failure with tubular necrosis; G93.41 Metabolic encephalopathy; K25.4 Chronic or unspecified gastric ulcer with hemorrhage; K29.51 Unspecified chronic gastritis with bleeding; I26.99 Other pulmonary embolism without acute cor pulmonale; J44.0 Chronic obstructive pulmonary disease with (acute) lower respiratory infection; E87.0 Hyperosmolality and hypernatremia; K40.30 Unilateral inguinal hernia, with obstruction, without gangrene, not specified as recurrent; D62 Acute posthemorrhagic anemia; K55.9 Vascular disorder of intestine, unspecified; Z51.5 Encounter for palliative care; E86.0 Dehydration; I16.0 Hypertensive urgency; B95.7 Other staphylococcus as the cause of diseases classified elsewhere; K31.89 Other diseases of stomach and duodenum; R31.0 Gross hematuria; R33.9 Retention of urine, unspecified; E87.6 Hypokalemia; E53.8 Deficiency of other specified B group vitamins; N32.89 Other specified disorders of bladder; Z78.1 Physical restraint status; I10 Essential (primary) hypertension
CPT/HCPCS: 36415; 36416; 36430; 36600; 51701; 71045; 71275; 74177; 76705; 80048; 80053; 80074; 81003; 81015; 82553; 82607; 82746; 82805; 83605; 83690; 83735; 83880; 84100; 84443; 84484; 85025; 85379; 85384; 85610; 85652; 85730; 86850; 86900; 86901; 87040; 87070; 87077; 87086; 87106; 87149; 87186; 87205; 88305; 88312; 93005; 93010; 94002; 94003; 94640; 94660; 94664; 94760; 96365; 96367; 96372; 96374; C1751; C1781; C9113; J0456; J0692; J0696; J1100; J1644; J1650; J1940; J1956; J2060; J2185; J2250; J2270; J2370; J2405; J2543; J2704; J2765; J3010; J3370; J3490; J7030; J7050; J7070; J7512; J7620; J7626; P9016; P9045; Q9967; S0020; S0028